=== PATIENT | female | born 1970 | race Hispanic/Latino ===

== ENCOUNTER 2017-11-08 23:23 | Emergency (ER) | payer BC ==
[2017-11-08] MEDS ORDERED: BUPIVACAINE 0.5% PF 10 ML VIAL ONE (23:45)
[2017-11-08] MEDS ORDERED: LIDOCAINE 1% MPF 2 ML AMPULE ONE (23:45)
[2017-11-08] MEDS ORDERED: TETANUS & DIPHTHERIA TOX,ADULT 0.5 ML VIAL ONE (23:46)
--- NOTE | 2017-11-09 01:05 | ER ---
Nurse's Notes [facility] Name: Shirley Tariq Age: 47 yrs Sex: Female : 1970 Arrival Date: 11/08/2017 Time: 23:23 Bed 20 Private MD: Goran Huang Diagnosis: Laceration without foreign body of right thumb without damage to nail;Crushing injury of unspecified finger(s)-Right Thumb with chip fracture distal phalanx Presentation: 11/08 23:30 Presenting complaint: Patient states: "I was trying to open my door and I pushed and ao got my thumb." Patient presented a a small laceration in the left thumb. Transition of care: patient was not received from another setting of care. Onset of symptoms was November 08, 2017 at 23:00. Risk Assessment: Do you want to hurt yourself or someone else? Patient reports no desire to harm self or others. Initial Sepsis Screen: Does the patient meet any 2 criteria? No. Patient's initial sepsis screen is negative. Does the patient have a suspected source of infection? No. Patient's initial sepsis screen is negative. Care prior to arrival: None. 23:30 Method Of Arrival: Ambulatory ao 23:30 Acuity: BRIAN 3 ao Triage Assessment: 23:39 Injury Description: Laceration sustained to left thumbnail is clean, 0.5 to 2.5 cm ao long, not bleeding, was sustained less than 30 minutes ago. a small amount of bleeding noted at this time. 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 - Social history:: Smoking status: Patient/guardian denies using tobacco, Patient uses alcohol, occasionally. Patient/guardian denies using street drugs. - Ebola Screening: : Patient negative for fever greater than or equal to 101.5 degrees Fahrenheit, and additional compatible Ebola Virus Disease symptoms Patient denies exposure to infectious person Patient denies travel to an Ebola-affected area in the 21 days before illness onset. Screenin:39 Abuse screen: Denies threats or abuse. Denies injuries from another. Nutritional ao screening: No deficits noted. Tuberculosis screening: No symptoms or risk factors identified. Fall Risk None identified. Assessment: 23:36 General: Appears in no apparent distress. comfortable, Behavior is calm, cooperative, ao appropriate for age. Pain: Denies pain. Complains of pain in palmar aspect of distal phalanx of left thumb Pain does not radiate. Pain currently is 3 out of 10 on a pain scale. Neuro: Level of Consciousness is awake, alert, obeys commands, Oriented to person, place, time, situation, Appropriate for age Moves all extremities. Speech is normal, Facial symmetry appears normal, Pupils are PERRLA. Cardiovascular: Capillary refill < 3 seconds Patient's skin is warm and dry. Respiratory: Airway is patent Respiratory effort is even, unlabored, Respiratory pattern is regular, symmetrical. GI: Abdomen is non-distended. : No signs and/or symptoms were reported regarding the genitourinary system. EENT: No signs and/or symptoms were reported regarding the EENT system. Derm: Wound noted palmar aspect of distal phalanx of left thumb Wound is Small laceration in the left thumb. Bleeding has been controlled. Musculoskeletal: Range of motion: intact in all extremities, Swelling present in left thumbnail Reports pain in left thumbnail. Vital Signs: 23:33 BP 176 / 93; Pulse 95; Resp 16; Temp 97.9(O); Pulse Ox 97% on R/A; Weight 79.38 kg (R); ao Height 5 ft. 3 in. (160.02 cm) (R); Pain 3/10; 23:33 Body Mass Index 31.00 (79.38 kg, 160.02 cm) ao ED Course: 23:23 Patient arrived in ED. ds1 23:23 Goran Huang MD is Private Physician. ds1 23:30 Carlos Nuno PA is PHCP. cp 23:30 Fran Johnston MD is Attending Physician. cp 23:33 Triage completed. ao 23:36 Arm band placed on right wrist. Patient placed in an exam room, on a stretcher, on ao oxygen, Patient notified of wait time. 23:40 Patient has correct armband on for positive identification. Pulse ox on. NIBP on. ao 11/09 00:10 X-ray completed. Portable x-ray completed in exam room. Patient tolerated procedure mh1 well. 00:10 XRAY Hand RIGHT 3 View Sent. ak1 00:11 XRAY Hand RIGHT 3 View In Process Unspecified. EDMS 01:03 Clarence Kamara MD is Referral Physician. cp 01:14 Assist provider with laceration repair on palmar aspect of distal phalanx of left thumb ak1 Set up tray. Performed by Carlos GATES Dressed with 4X4s, Ekta, Patient tolerated well. Patient did not have IV access during this emergency room visit. Administered Medications: 11/08 23:49 Drug: Tetanus-Diphtheria Toxoid Adult 0.5 ml {Telephoner: [employer]. Exp: ao 01/05/2020. Lot #: [id number]. } Route: IM; Site: left deltoid; 11/09 01:21 Follow up: Response: No adverse reaction ak1 00:09 Drug: Lidocaine (1 %) 5 ml {Note: at the bedside for ERP use.} Volume: 20 ml; Route: ak1 Infiltration; 00:09 Drug: Marcaine (0.5 %) 5 ml {Note: at the bedside for ERP use.} Volume: 10 ml; Route: ak1 Infiltration; 01:07 Drug: KeFLEX 500 mg Route: PO; ak1 01:20 Follow up: Response: No adverse reaction ak1 Outcome: 01:04 Discharge ordered by . cp 01:14 Discharged to home ambulatory. ak1 01:14 Condition: stable 01:14 Discharge instructions given to patient, Instructed on discharge instructions, follow up and referral plans. no drinking with medication, no driving heavy equipment, medication usage, Demonstrated understanding of instructions, follow-up care, medications, Prescriptions given X 3. 01:20 Patient left the ED. ak1 Signatures: Dispatcher [employer] EDWV TylerAlley 1 Shelly Arreola 1 Nano Rodney RN RN [email or web address] Carlos Nuno PA PA cp Ortiz, Alex, RN RN ao
--- NOTE | 2017-11-09 01:06 | EDPHYS ---
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 - Social history:: Smoking status: Patient/guardian denies using tobacco, Patient uses alcohol, occasionally. Patient/guardian denies using street drugs. - Ebola Screening: : Patient negative for fever greater than or equal to 101.5 degrees Fahrenheit, and additional compatible Ebola Virus Disease symptoms Patient denies exposure to infectious person Patient denies travel to an Ebola-affected area in the 21 days before illness onset. ROS: 23:45 Constitutional: Negative for body aches, chills, fever, poor PO intake. cp 23:45 Eyes: Negative for injury, pain, redness, and discharge. cp 23:45 Cardiovascular: Negative for chest pain. 23:45 Respiratory: Negative for cough, wheezing. 23:45 Abdomen/GI: Negative for abdominal pain. 23:45 MS/extremity: Positive for contusion, laceration, pain, swelling, tenderness, of the distal phalanx right thumb. 23:45 Neuro: Negative for numbness, tingling, weakness. 23:45 All other systems are negative. Exam: 23:55 Constitutional: The patient appears in no acute distress, alert, awake, well developed, cp well nourished. 23:55 Head/Face: Normocephalic, atraumatic. cp 23:55 Eyes: Periorbital structures: appear normal, Conjunctiva: normal, no exudate, no injection, Lids and lashes: appear normal, bilaterally. 23:55 ENT: External ear(s): are unremarkable, Nose: is normal, Mouth: is normal, Posterior pharynx: is normal, airway is patent. 23:55 Chest/axilla: Inspection: normal. 23:55 Cardiovascular: Rate: normal, Rhythm: regular. 23:55 Respiratory: the patient does not display signs of respiratory distress, Respirations: normal, no use of accessory muscles, no retractions, no splinting, no tachypnea. 23:55 Abdomen/GI: Exam negative for discomfort, distension, guarding, Inspection: abdomen appears normal. 23:55 Musculoskeletal/extremity: Extremities: grossly normal except: noted in the dorsal side distal phalanx right thumb: contusion, laceration, pain, swelling, tenderness, ROM: full active range of motion, in the right thumb, Perfusion: the extremity is normally perfused throughout, Sensation intact. Tendon exam: specific tendon testing normal through active and passive range of motion Vital Signs: 23:33 BP 176 / 93; Pulse 95; Resp 16; Temp 97.9(O); Pulse Ox 97% on R/A; Weight 79.38 kg (R); ao Height 5 ft. 3 in. (160.02 cm) (R); Pain 3/10; 23:33 Body Mass Index 31.00 (79.38 kg, 160.02 cm) ao Laceration: 11/09 01:00 Wound Repair of 1.5cm ( 0.6in ) subcutaneous laceration to dorsal side proximal to nail cp of right thumb. Linear shaped.. Distal neuro/vascular/tendon intact. Anesthesia: Digital block administered with 4 mls of Lido/Marcaine. Wound prep: Moderate cleansing by me, Wound irrigation by me. Skin closed with 2 5-0 Prolene using simple sutures and sterile technique. Dressed with Bacitracin, tube gauze, finger splint. Patient tolerated well. MDM: 11/08 23:34 Patient medically screened. cp 11/09 00:00 Differential diagnosis: contusion, laceration, open fracture. cp 01:02 Data reviewed: vital signs, nurses notes, radiologic studies, plain films. cp 01:02 Test interpretation: by ED physician or midlevel provider: plain radiologic studies. cp Counseling: I had a detailed discussion with the patient and/or guardian regarding: the historical points, exam findings, and any diagnostic results supporting the discharge/admit diagnosis, radiology results, the need for outpatient follow up, a hand specialist, to return to the emergency department if symptoms worsen or persist or if there are any questions or concerns that arise at home. Response to treatment: the patient's symptoms have markedly improved after treatment, and as a result, I will discharge patient. 11/08 23:39 Order name: XRAY Hand RIGHT 3 View cp 11/09 00:14 Order name: Wound Care: please clean and irrigate wound; Complete Time: 00:38 cp 11/09 00:53 Order name: Splint - Finger; Complete Time: 01:07 cp 11/09 00:53 Order name: Wound dressing; Complete Time: 01:07 cp Administered Medications: 11/08 23:49 Drug: Tetanus-Diphtheria Toxoid Adult 0.5 ml {Compound Mixer: [employer]. Exp: ao 01/05/2020. Lot #: [id number]. } Route: IM; Site: left deltoid; 11/09 01:21 Follow up: Response: No adverse reaction ak1 00:09 Drug: Lidocaine (1 %) 5 ml {Note: at the bedside for ERP use.} Volume: 20 ml; Route: ak1 Infiltration; 00:09 Drug: Marcaine (0.5 %) 5 ml {Note: at the bedside for ERP use.} Volume: 10 ml; Route: ak1 Infiltration; 01:07 Drug: KeFLEX 500 mg Route: PO; ak1 01:20 Follow up: Response: No adverse reaction ak1 Disposition: 03:45 Co-signature as Attending Physician, Fran Johnston MD. Disposition: 11/09/17 01:04 Discharged to Home. Impression: Laceration without foreign body of right thumb without damage to nail, Crushing injury of unspecified finger(s) - Right Thumb with chip fracture distal phalanx. - Condition is Stable. - Discharge Instructions: Crush Injury, Fingers or Toes, Laceration Care, Adult. - Prescriptions for Ibuprofen 800 mg Oral Tablet - take 1 tablet by ORAL route every 8 hours As needed take with food; 30 tablet. Keflex 500 mg Oral Capsule - take 1 capsule by ORAL route every 6 hours for 10 days; 40 capsule. Tylenol- Codeine #3 300-30 mg Oral Tablet - take 2 tablets by ORAL route every 6 hours As needed; 15 tablet. - Work release form, Medication Reconciliation Form, Thank You Letter, Antibiotic Education, Prescription Opioid Use form. - Follow up: Clarence Kamara MD; When: 1 week; Reason: Wound Recheck. - Problem is new. - Symptoms have improved. Signatures: Dispatcher [employer] EDNano Landers, RN RN ak1 Carlos Nuno PA PA cp Ortiz, Alex RN RN Fran Corbett MD MD gs Corrections: (The following items were deleted from the chart) 01:20 01:04 11/09/2017 01:04 Discharged to Home. Impression: Laceration without foreign body ak1 of right thumb without damage to nail; Crushing injury of unspecified finger(s) - Right Thumb with chip fracture distal phalanx. Condition is Stable. Forms are Medication Reconciliation Form, Thank You Letter, Antibiotic Education, Prescription Opioid Use. Follow up: Clarence Kamara; When: 1 week; Reason: Wound Recheck. Problem is new. Symptoms have improved. cp
[2017-11-09] MEDS ORDERED: CEPHALEXIN 250 MG CAP ONE (01:09)
--- NOTE | 2017-11-09 08:18 | RAD REPORT ---
EXAM DESCRIPTION: RAD - Hand Right 3 View - 11/09/2017 12:11 am CLINICAL HISTORY: Right hand pain status post injury FINDINGS: No fracture or dislocation is seen.
== END 2017-11-09 01:20 | disposition home or self-care (01) ==
LOC: ER 23:23
PROC: 0HQFXZZ Repair Right Hand Skin, External Approach (ICD-10-PCS; principal; 2017-11-09)
DX: S62.521B Displaced fracture of distal phalanx of right thumb, initial encounter for open fracture (principal); I10 Essential (primary) hypertension; E78.5 Hyperlipidemia, unspecified; X58.XXXA Exposure to other specified factors, initial encounter; Y93.9 Activity, unspecified; Y92.9 Unspecified place or not applicable; Y99.9 Unspecified external cause status; Z23 Encounter for immunization
CPT/HCPCS: 90714; 99284; J2001

== ENCOUNTER 2018-05-18 03:11 | Emergency (ER) | payer BC ==
--- OUTSIDE RECORDS SUMMARY | 2018-05-18 03:13 | XMS REPORT ---
:1970 [facility] Address [address] [place] [address] Dr. Horton [address] [place] [id number] Care Team Providers Name Role Phone Unavailable Unavailable Unavailable Problems This patient has no known problems. Allergies, Adverse Reactions, Alerts This patient has no known allergies or adverse reactions. Medications This patient has no known medications.
[2018-05-18] MEDS ORDERED: IBUPROFEN 200 MG TAB PO ONE (03:57)
[2018-05-18] MEDS ORDERED: IBUPROFEN 400 MG TAB ONE (03:57)
[2018-05-18] MEDS ORDERED: ACETAMINOPHEN 500 MG TAB ONE (03:57)
[2018-05-18] MEDS ORDERED: LIDOCAINE 1% MPF 5 ML VIAL ONE (05:11)
[2018-05-18] MEDS ORDERED: ONDANSETRON 4 MG (ODT) TAB ONE (05:21)
--- NOTE | 2018-05-18 05:46 | EDPHYS ---
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 - Social history:: Smoking status: Patient/guardian denies using tobacco, Patient uses alcohol, occasionally. - Ebola Screening: : Patient negative for fever greater than or equal to 101.5 degrees Fahrenheit, and additional compatible Ebola Virus Disease symptoms Patient denies exposure to infectious person Patient denies travel to an Ebola-affected area in the 21 days before illness onset. Vital Signs: 03:15 BP 180 / 125; Pulse 90; Resp 18; Temp 97.6(O); Pulse Ox 100% on R/A; Weight 82.1 kg fc (R); Height 5 ft. 3 in. (160.02 cm); Pain 10/10; 03:41 BP 151 / 96; Pulse 78; Resp 17 S; Pulse Ox 100% on R/A; jd3 04:20 BP 163 / 98; Pulse 71; Resp 16 S; Pulse Ox 100% on R/A; jd3 05:17 BP 167 / 93; Pulse 77; Resp 17 S; Pulse Ox 99% on R/A; jd3 03:15 Body Mass Index 32.06 (82.10 kg, 160.02 cm) fc MDM: 03:21 Patient medically screened. wv 05/18 03:37 Order name: Hand Left 3 View XRAY wv Administered Medications: 03:55 Drug: Tylenol 1000 mg Route: PO; jd3 05:55 Follow up: Response: No adverse reaction jd3 04:04 Not Given (Physician Discretion): Motrin 600 mg PO once jd3 05:35 Drug: Lidocaine (1 %) 5 ml Volume: 5 ml; Route: Infiltration; jd3 05:57 Follow up: Response: No adverse reaction jd3 Disposition: 05/18/18 05:46 Discharged to Home. Impression: left Thumb Laceration involving the nail bed. - Condition is Stable. - Discharge Instructions: Laceration Care, Adult, [id number]. - Prescriptions for Keflex 500 mg Oral Capsule - take 1 capsule by ORAL route every 12 hours for 5 days; 10 capsule. - Medication Reconciliation Form, Thank You Letter, Antibiotic Education, Prescription Opioid Use, Work release form form. - Follow up: Clarence Kamara MD; When: 2 - 3 days; Reason: Recheck today's complaints. - Problem is new. - Symptoms have improved. Addendum: 05/19/2018 09:14 Addendum: cc: cut left thumb with knife. 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 w a c/o bleeding. held on a piece of tissue paper. admits to moderate pain. PMHx: HTN. hyperlipidemia. SHx: denies tobacco. occasional ETOH. Allg: NKDA. ROS: positive for L thumb lac. all other ROS negative. Exam: const: NAD. HEENT: NCAT. CVS: NS1, S2. Resp: lungs clear. Abd: soft, non-tender. Musc: 1 cm lac distal L thumb through nailbed. noted mild venous bleed. Neuro: normal. DDx: will check x-ray r/o fx or FB. will repair. Tetanus UTD. Results: L thumb x-ray: no fx or dislocation. procedure: digital block with 1% lidocaine w/o epi. lac repaired with 4-0 vicryl sutures. 2 stitches placed. dressed with gauze. pt tolerated well. prophylactic keflex abx written. close f/u. Signatures: Dispatcher [employer] EDAK Kristin Maldonado RN RN Adeel Wolf MD MD wa Davies, Jonathon, RN RN jd3 Corrections: (The following items were deleted from the chart) 05/18 05:57 05:46 05/18/2018 05:46 Discharged to Home. Impression: left Thumb Laceration involving jd3 the nail bed. Condition is Stable. Forms are Work release form, Medication Reconciliation Form, Thank You Letter, Antibiotic Education, Prescription Opioid Use. Follow up: Clarence Kamara; When: 2 - 3 days; Reason: Recheck today's complaints. Problem is new. Symptoms have improved. jose
--- NOTE | 2018-05-18 05:46 | ER ---
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 Bleeding is controlled at this time. Transition of care: patient was not received from another setting of care. Onset of symptoms was May 18, 2018 at 03:00. Risk Assessment: Do you want to hurt yourself or someone else? Patient reports no desire to harm self or others. Initial Sepsis Screen: Does the patient meet any 2 criteria? No. Patient's initial sepsis screen is negative. Does the patient have a suspected source of infection? No. Patient's initial sepsis screen is negative. Care prior to arrival: Bleeding of injury controlled. 03:15 Method Of Arrival: Ambulatory fc 03:15 Acuity: BRIAN 3 fc Triage Assessment: 03:15 General: Appears uncomfortable, well groomed, Behavior is calm, cooperative, fc appropriate for age. Pain: Complains of pain in left thumb Pain currently is 10 out of 10 on a pain scale. Quality of pain is described as aching, throbbing, Pain began 30 min ago. Is continuous, Aggravated by increased activity, repositioning. EENT: No deficits noted. Neuro: Level of Consciousness is awake, alert, obeys commands, Oriented to person, place, time, situation, Appropriate for age. Cardiovascular: No deficits noted. Respiratory: Reports. GI: No deficits noted. : No deficits noted. Derm: Skin is pink, warm \T\ dry. Musculoskeletal: Capillary refill Range of motion: limited in IP of left thumb. Injury Description: Laceration sustained to left thumbnail is clean, 0.5 to 2.5 cm long, bleeding moderately, was sustained less than 30 minutes ago. moderate bleeding noted at this time. A dressing was applied. 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 - Social history:: Smoking status: Patient/guardian denies using tobacco, Patient uses alcohol, occasionally. - Ebola Screening: : Patient negative for fever greater than or equal to 101.5 degrees Fahrenheit, and additional compatible Ebola Virus Disease symptoms Patient denies exposure to infectious person Patient denies travel to an Ebola-affected area in the 21 days before illness onset. Screenin:25 Abuse screen: Denies threats or abuse. Nutritional screening: No deficits noted. Tuberculosis screening: No symptoms or risk factors identified. Fall Risk None identified. Assessment: 03:25 Reassessment: No changes from previously documented assessment. Patient and/or family fc updated on plan of care and expected duration. Pain level reassessed. Patient is alert, oriented x 3, equal unlabored respirations, skin warm/dry/pink. see triage assessment. 03:42 Reassessment: left thumb wrapped, no bleeding noted at this time. jd3 04:20 Reassessment: Patient appears in no apparent distress at this time. No changes from d3 previously documented assessment. Patient and/or family updated on plan of care and expected duration. Pain level reassessed. Patient is alert, oriented x 3, equal unlabored respirations, skin warm/dry/pink. 05:17 Reassessment: Patient appears in no apparent distress at this time. Patient and/or [facility] family updated on plan of care and expected duration. Pain level reassessed. Patient is alert, oriented x 3, equal unlabored respirations, skin warm/dry/pink. provider at bedside suturing. Vital Signs: 03:15 BP 180 / 125; Pulse 90; Resp 18; Temp 97.6(O); Pulse Ox 100% on R/A; Weight 82.1 kg (R); Height 5 ft. 3 in. (160.02 cm); Pain 10/10; 03:41 BP 151 / 96; Pulse 78; Resp 17 S; Pulse Ox 100% on R/A; jd3 04:20 BP 163 / 98; Pulse 71; Resp 16 S; Pulse Ox 100% on R/A; jd3 05:17 BP 167 / 93; Pulse 77; Resp 17 S; Pulse Ox 99% on R/A; jd3 03:15 Body Mass Index 32.06 (82.10 kg, 160.02 cm) ED Course: 03:12 Patient arrived in ED. ds1 03:15 Arm band placed on Patient placed in an exam room, on a stretcher. 03:21 Adeel Wolf MD is Attending Physician. wa 03:22 Triage completed. 03:25 Patient has correct armband on for positive identification. Bed in low position. Call fc light in reach. 03:35 Scout Houser RN is Primary Nurse. jd3 03:35 Dressings: Kerlix X 1; left thumb. jd3 03:52 X-ray completed. Portable x-ray completed in exam room. Patient tolerated procedure kw well. 03:52 Hand Left 3 View XRAY In Process Unspecified. EDMS 05:34 Assist provider with laceration repair on left thumb that was 2.5 cm. or less using jd3 sutures. Set up tray. Performed by Adeel Wolf MD Dressed with Kerlix, Patient tolerated well. 05:45 Clarence Kamara MD is Referral Physician. wy 05:55 Patient did not have IV access during this emergency room visit. jd3 Administered Medications: 03:55 Drug: Tylenol 1000 mg Route: PO; jd3 05:55 Follow up: Response: No adverse reaction jd3 04:04 Not Given (Physician Discretion): Motrin 600 mg PO once jd3 05:35 Drug: Lidocaine (1 %) 5 ml Volume: 5 ml; Route: Infiltration; jd3 05:57 Follow up: Response: No adverse reaction jd3 Outcome: 05:46 Discharge ordered by . wy 05:54 Discharged to home ambulatory. jd3 05:54 Condition: stable 05:54 Discharge instructions given to patient, Instructed on discharge instructions, follow up and referral plans. medication usage, Demonstrated understanding of instructions, follow-up care, medications, Prescriptions given X 1. 05:57 Patient left the ED. jd3 Signatures: Dispatcher [employer] EDMS Kristin Maldonado RN RN Shelly Arreola ds1 Emely Cantor kw Adeel Wolf MD MD wa Davies, Jonathon, RN RN jd3 Corrections: (The following items were deleted from the chart) 03:43 03:42 Reassessment: jd3 jd3 05:20 05:17 BP 111 / 67; Pulse 63bpm; Resp 17bpm; Spontaneous; Pulse Ox 99% RA; jd3 jd3 05:25 05:17 Reassessment: Patient appears in no apparent distress at this time. Patient jd3 and/or family updated on plan of care and expected duration. Pain level reassessed. Patient is alert, oriented x 3, equal unlabored respirations, skin warm/dry/pink. jd3
--- NOTE | 2018-05-18 08:18 | RAD REPORT ---
EXAM DESCRIPTION: RAD -Hand Left 3 View - 05/18/2018 3:52 am CLINICAL HISTORY: Left hand pain status post injury FINDINGS: No fracture or dislocation is seen. A radiopaque foreign body is not seen
== END 2018-05-18 05:57 | disposition home or self-care (01) ==
LOC: ER 03:11
PROC: 0JQK0ZZ Repair Left Hand Subcutaneous Tissue and Fascia, Open Approach (ICD-10-PCS; principal; 2018-05-18)
DX: S61.112A Laceration without foreign body of left thumb with damage to nail, initial encounter (principal); W26.0XXA Contact with knife, initial encounter; I10 Essential (primary) hypertension; E78.5 Hyperlipidemia, unspecified
CPT/HCPCS: 99284

== ENCOUNTER 2018-12-25 10:41 | Emergency (ER) | payer BC ==
--- OUTSIDE RECORDS SUMMARY | 2018-12-25 10:44 | XMS REPORT ---
:1970 [facility] Address [address] [place] [address] Dr. Horton [address] [place] [id number] Care Team Providers Name Role Phone Unavailable Unavailable Unavailable Problems This patient has no known problems. Allergies, Adverse Reactions, Alerts This patient has no known allergies or adverse reactions. Medications This patient has no known medications.
[2018-12-25] MEDS ORDERED: MEPERIDINE HCL 25 MG/0.5 ML ONE (11:11)
[2018-12-25] MEDS ORDERED: ONDANSETRON 4 MG/2 ML VIAL ONE (11:12)
[2018-12-25 11:17] LABS: Absolute Lymphocytes (CBC) 1.7 K/uL (0.7-4.9); Basophils % 0.8 % (0-1.3); Hematocrit 39.3 % (36.0-45.0); Lymphocytes % 45.5 % (15.3-44.8); MPV 8.8 fL (7.6-11.3); RBC Red Blood Cell Count 4.54 M/uL (3.86-4.86)
[2018-12-25 11:36] LABS: Bilirubin Direct 0.1 mg/dL (0-0.2); Bilirubin Total 0.5 mg/dL (0.2-1.0); Potassium 3.7 mmol/L (3.5-5.1); Protein, Total 7.9 g/dL (6.4-8.2)
[2018-12-25] MEDS ORDERED: NA CHLORIDE 0.9% 1,000 ML ONE (12:18)
--- NOTE | 2018-12-25 12:21 | RAD REPORT ---
EXAM DESCRIPTION: CT - Abdomen Pelvis W Contrast - 12/25/2018 12:01 pm CLINICAL HISTORY: ABD PAIN COMPARISON: None. TECHNIQUE: Biphasic, helical CT imaging of the abdomen and pelvis was performed following 100 ml non -ionic IV contrast. No oral contrast was given. All CT scans are performed using dose optimization technique as appropriate and may include automated exposure control or mA/KV adjustment according to patient size. FINDINGS: No suspicious findings in the lung bases. Liver shows fatty infiltration pattern with no focal liver lesion identified. Slight decrease in atte nuation in the periportal region of the right lobe not regarded as significant. Spleen and pancreas s how no suspicious findings. Gallbladder and biliary tree are also without suspicious finding. Symmetric renal function is seen with no hydronephrosis or suspicious renal mass. No pyelonephritis o r acute parenchymal process. No bladder abnormalities. No adrenal abnormalities. No gastric dilatation or gastric wall thickening. No dilated small bowel loops. The appendix is siddhartha l. From tip of the cecum through the descending colon there is no acute process seen. Sigmoid colon i s tortuous and redundant. In the right side pelvis there is edematous/inflammatory stranding in the f at adjacent to the sigmoid colon. Stranding surrounds a focal fat lobule. The huang of the colon in t his region are not thickened or edematous. Pattern is consistent with acute epiploic appendagitis at the sigmoid colon level. Colon infectious/inflammatory etiology is less likely. No free air or pneumatosis. Trace amount of free fluid is seen in the pelvis. No other site of infl ammatory stranding. No bulky lymphadenopathy or mass. Fat extends into each inguinal canal. Small fa t only umbilical hernia present. No uterine or ovarian suspicious finding. Patient has a 3 centimeter exophytic fundal fibroid inciden ana to the current presentation. Disc and bony degenerative changes are present. Patient has L5 pars interarticularis defects with a g rade 1 spondylolisthesis. L5-S1 disc is significantly thinned with gas in the disc space. Significant disc space narrowing at L4-5. IMPRESSION: Acute epiploic appendagitis adjacent to the sigmoid colon. No acute findings of the sig nal colon wall. No appendicitis or other acute GI process. Additional nonacute findings detailed in the body of the report.
--- NOTE | 2018-12-25 13:05 | EDPHYS ---
Physician Documentation [facility] Name: Shirley Tariq Age: 48 yrs Sex: Female : 1970 Arrival Date: 12/25/2018 Time: 10:46 Bed 15 Private MD: Goran Huang ED Physician Artie Mares HPI: 12/25 10:56 This 48 yrs old Female presents to ER via Unassigned with complaints of rn Abdominal Pain. 10:56 The patient presents with abdominal pain in the lower abdomen. Onset: The rn symptoms/episode began/occurred 3 day(s) ago. The symptoms do not radiate. Associated signs and symptoms: Pertinent positives: diarrhea, Pertinent negatives: blood in stools, fever, shortness of breath, vomiting, vomiting blood. The symptoms are described as achy, crampy. Modifying factors: The symptoms are alleviated by nothing, the symptoms are aggravated by movement, touching the area. Severity of pain: At its worst the pain was moderate in the emergency department the pain is unchanged. The patient has not experienced similar symptoms in the past. The patient has not recently seen a physician. 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 - Social history:: Smoking status: Patient/guardian denies using tobacco. - Family history:: not pertinent. - Ebola Screening: : Patient negative for fever greater than or equal to 101.5 degrees Fahrenheit, and additional compatible Ebola Virus Disease symptoms. - Hospitalizations: : No recent hospitalization is reported. ROS: 10:56 Constitutional: Negative for fever, chills, and weight loss, Cardiovascular: Negative rn for chest pain, palpitations, and edema, Respiratory: Negative for shortness of breath, cough, wheezing, and pleuritic chest pain, Abdomen/GI: + lower abd pain and diarrhea Back: Negative for injury and pain, : Negative for injury, bleeding, discharge, and swelling, MS/Extremity: Negative for injury and deformity, Skin: Negative for injury, rash, and discoloration, Neuro: Negative for headache, weakness, numbness, tingling, and seizure. Exam: 10:56 Constitutional: This is a well developed, well nourished patient who is awake, alert, rn and in no acute distress. Head/Face: Normocephalic, atraumatic. Eyes: Pupils equal round and reactive to light, extra-ocular motions intact. Lids and lashes normal. Conjunctiva and sclera are non-icteric and not injected. Cornea within normal limits. Periorbital areas with no swelling, redness, or edema. ENT: MMM Respiratory: No increased work of breathing, no retractions or nasal flaring. Abdomen/GI: soft, + lower abd tenderness in RLQ/LLQ/suprapubic regions. MS/ Extremity: Pulses equal, no cyanosis. Neurovascular intact. Full, normal range of motion. Equal circumference. Neuro: Awake and alert, GCS 15, oriented to person, place, time, and situation. Cranial nerves II-XII grossly intact. Motor strength 5/5 in all extremities. Sensory grossly intact. Cerebellar exam normal. Vital Signs: 10:48 BP 152 / 95; Pulse 83; Resp 17; Temp 98.4(O); Pulse Ox 100% on R/A; Weight 82.55 kg rb1 (R); Height 5 ft. 3 in. (160.02 cm) (R); Pain 7/10; 11:45 BP 131 / 67; Pulse 69; Resp 16; Temp 98.1(O); Pulse Ox 97% on R/A; Pain 6/10; rb1 12:45 BP 106 / 46; Pulse 70; Resp 17; Pulse Ox 97% on R/A; Pain 8/10; rb1 13:20 BP 119 / 58; Pulse 75; Resp 17; Temp 98.0(O); Pulse Ox 98% on R/A; Pain 7/10; rb1 10:48 Body Mass Index 32.24 (82.55 kg, 160.02 cm) rb1 MDM: 10:48 Patient medically screened. rn 13:02 Differential diagnosis: diverticulitis, non-specific abd pain, pancreatitis, rn Ureterolithiasis, urinary tract infection. Data reviewed: vital signs, nurses notes, lab test result(s), radiologic studies, CT scan, and as a result, I will discharge patient. Counseling: I had a detailed discussion with the patient and/or guardian regarding: the historical points, exam findings, and any diagnostic results supporting the discharge/admit diagnosis, lab results, radiology results, the need for outpatient follow up, to return to the emergency department if symptoms worsen or persist or if there are any questions or concerns that arise at home. Response to treatment: the patient's symptoms have markedly improved after treatment, and as a result, I will discharge patient. Special discussion: I discussed with the patient/guardian in detail that at this point there is no indication for admission to the hospital. It is understood, however, that if the symptoms persist or worsen the patient needs to return immediately for re-evaluation. ED course: Results of CT and labs given to patient, recommended better diet for fatty liver, and epiploic appendagitis finding on CT explained.. 12/25 10:56 Order name: Basic Metabolic Panel; Complete Time: 11:50 rn 12/25 10:56 Order name: CBC with Diff; Complete Time: 11:50 rn 12/25 10:56 Order name: Creatinine for Radiology; Complete Time: 11:50 rn 12/25 10:56 Order name: Hepatic Function; Complete Time: 11:50 rn 12/25 10:56 Order name: Lipase; Complete Time: 11:50 rn 12/25 10:56 Order name: Urine Microscopic Only; Complete Time: 13:55 rn 12/25 10:56 Order name: IV Saline Lock; Complete Time: 11:12 rn 12/25 10:56 Order name: Labs collected and sent; Complete Time: 11:12 rn 12/25 10:56 Order name: CT Abd/Pelvis - IV Contrast Only; Complete Time: 12:46 rn 12/25 12:43 Order name: Urine Dipstick--Ancillary (enter results); Complete Time: 13:55 bd 12/25 12:43 Order name: Urine --Ancillary (enter results); Complete Time: 13:55 bd 12/25 10:56 Order name: Urine Dipstick-Ancillary (obtain specimen); Complete Time: 12:44 rn 12/25 10:56 Order name: Urine Test (obtain specimen); Complete Time: 12:44 rn Administered Medications: 11:16 Drug: Demerol 25 mg Route: IVP; Site: right antecubital; rb1 11:30 Follow up: Response: No adverse reaction; Pain is decreased rb1 11:16 Drug: Zofran 4 mg Route: IVP; Site: right antecubital; rb1 11:30 Follow up: Response: No adverse reaction; Nausea is decreased rb1 12:35 Drug: NS 0.9% 1000 ml Route: IV; Rate: 1000 ml; Site: right antecubital; rb1 13:54 Follow up: IV Status: Completed infusion rb1 Disposition: 12/25/18 13:03 Discharged to Home. Impression: Epiploic Appendagitis. - Condition is Stable. - Prescriptions for Tylenol- Codeine #3 300-30 mg Oral Tablet - take 1 tablet by ORAL route every 6 hours As needed; 20 tablet. Bactrim DS 800- 160 mg Oral Tablet - take 1 tablet by ORAL route every 12 hours for 10 days; 20 tablet. - Medication Reconciliation Form, Thank You Letter, Antibiotic Education, Prescription Opioid Use, Work release form form. - Follow up: Private Physician; When: As needed; Reason: Recheck today's complaints, Re-evaluation by your physician. - Problem is new. - Symptoms have improved. Signatures: Dispatcher [employer] EDMS Artie Mares MD MD rn Barber, Rebecca, RN RN rb1 Corrections: (The following items were deleted from the chart) 13:59 13:03 12/25/2018 13:03 Discharged to Home. Impression: Epiploic Appendagitis. Condition rb1 is Stable. Forms are Medication Reconciliation Form, Thank You Letter, Antibiotic Education, Prescription Opioid Use. Follow up: Private Physician; When: As needed; Reason: Recheck today's complaints, Re-evaluation by your physician. Problem is new. Symptoms have improved. rn
--- NOTE | 2018-12-25 13:05 | ER ---
Nurse's Notes [facility] Name: Shirley Traiq Age: 48 yrs Sex: Female : 1970 Arrival Date: 12/25/2018 Time: 10:46 Bed 15 Private MD: Goran Huang Diagnosis: Epiploic Appendagitis Presentation: 12/25 10:48 Presenting complaint: Patient states: Abdominal pain that comes and goes. Started on rb1 Monday. Transition of care: patient was not received from another setting of care. Onset of symptoms was December 23, 2018. Risk Assessment: Do you want to hurt yourself or someone else? Patient reports no desire to harm self or others. Initial Sepsis Screen: Does the patient meet any 2 criteria? No. Patient's initial sepsis screen is negative. Does the patient have a suspected source of infection? No. Patient's initial sepsis screen is negative. Care prior to arrival: None. 10:48 Method Of Arrival: Ambulatory rb1 10:48 Acuity: BRIAN 3 rb1 Triage Assessment: 10:48 General: Appears uncomfortable, Behavior is calm, cooperative, Denies fever. Pain: rb1 Complains of pain in suprapubic area and right lower quadrant Pain currently is 7 out of 10 on a pain scale. Neuro: Level of Consciousness is awake, alert, obeys commands, Oriented to person, place, time, situation. Cardiovascular: Capillary refill < 3 seconds is brisk in bilateral fingers. Respiratory: Airway is patent Respiratory effort is even, unlabored, Respiratory pattern is regular, symmetrical. GI: Reports loose stools. : No signs and/or symptoms were reported regarding the genitourinary system. Derm: Skin is pink, warm \T\ dry. 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 - Social history:: Smoking status: Patient/guardian denies using tobacco. - Family history:: not pertinent. - Ebola Screening: : Patient negative for fever greater than or equal to 101.5 degrees Fahrenheit, and additional compatible Ebola Virus Disease symptoms. - Hospitalizations: : No recent hospitalization is reported. Screenin:48 Abuse screen: Denies threats or abuse. Nutritional screening: No deficits noted. rb1 Tuberculosis screening: No symptoms or risk factors identified. Fall Risk None identified. Assessment: 10:48 General: See triage assessment. rb1 10:48 GI: Bowel sounds present X 4 quads. Abd is soft Abdomen is tender to palpation in rb1 suprapubic area and right lower quadrant. 11:45 Reassessment: Patient appears in no apparent distress at this time. No changes from rb1 previously documented assessment. 12:38 Reassessment: Patient appears in no apparent distress at this time. Patient and/or rb1 family updated on plan of care and expected duration. Pain level reassessed. Patient is alert, oriented x 3, equal unlabored respirations, skin warm/dry/pink. 12:57 Reassessment: Dr. Mares is at pt. bedside. rb1 13:17 Reassessment: discharge pending due to IV fluids infusing. rb1 13:50 Reassessment: Patient appears in no apparent distress at this time. Patient and/or rb1 family updated on plan of care and expected duration. Pain level reassessed. Patient is alert, oriented x 3, equal unlabored respirations, skin warm/dry/pink. Vital Signs: 10:48 BP 152 / 95; Pulse 83; Resp 17; Temp 98.4(O); Pulse Ox 100% on R/A; Weight 82.55 kg rb1 (R); Height 5 ft. 3 in. (160.02 cm) (R); Pain 7/10; 11:45 BP 131 / 67; Pulse 69; Resp 16; Temp 98.1(O); Pulse Ox 97% on R/A; Pain 6/10; rb1 12:45 BP 106 / 46; Pulse 70; Resp 17; Pulse Ox 97% on R/A; Pain 8/10; rb1 13:20 BP 119 / 58; Pulse 75; Resp 17; Temp 98.0(O); Pulse Ox 98% on R/A; Pain 7/10; rb1 10:48 Body Mass Index 32.24 (82.55 kg, 160.02 cm) [facility] ED Course: 10:46 Patient arrived in ED. as 10:46 Goran Huang MD is Private Physician. as 10:47 Marsha Hubbard, RN is Primary Nurse. rb1 10:48 Artie Mares MD is Attending Physician. rn 10:48 Arm band placed on right wrist. rb1 10:48 Patient has correct armband on for positive identification. Bed in low position. Call rb1 light in reach. Side rails up X 1. Pulse ox on. NIBP on. Warm blanket given. 11:08 Triage completed. rb1 11:10 Inserted saline lock: 22 gauge in right antecubital area, using aseptic technique. tw2 Blood collected. 12:03 CT Abd/Pelvis - IV Contrast Only In Process Unspecified. [facility] 12:50 Urine --Ancillary (enter results) Sent. [facility] 12:50 Urine Dipstick--Ancillary (enter results) Sent. [facility] 12:50 Urine Microscopic Only Sent. [facility] 13:59 No provider procedures requiring assistance completed. IV discontinued, intact, rb1 bleeding controlled, No redness/swelling at site. Pressure dressing applied. Administered Medications: 11:16 Drug: Demerol 25 mg Route: IVP; Site: right antecubital; rb1 11:30 Follow up: Response: No adverse reaction; Pain is decreased rb1 11:16 Drug: Zofran 4 mg Route: IVP; Site: right antecubital; rb1 11:30 Follow up: Response: No adverse reaction; Nausea is decreased rb1 12:35 Drug: NS 0.9% 1000 ml Route: IV; Rate: 1000 ml; Site: right antecubital; rb1 13:54 Follow up: IV Status: Completed infusion rb1 Outcome: 13:03 Discharge ordered by . rn 13:59 Patient left the ED. rb1 13:59 Discharged to home ambulatory, with family. rb1 13:59 Condition: stable 13:59 Discharge instructions given to patient, Instructed on discharge instructions, follow up and referral plans. medication usage, Demonstrated understanding of instructions, follow-up care, medications, Prescriptions given X 2. Signatures: Dispatcher [employer] Eri Laughlin as Artie Mares MD MD rn Barber, Rebecca, RN RN rb1 Cara Lovett RN RN 2 Jaleesa Mccord [facility]
[2018-12-25 13:33] LABS: Urine Blood TRACE (NEG); Urine Glucose NEGATIVE (NEG); Urine Protein NEGATIVE (NEG)
[2018-12-25 13:38] LABS: Urine Bacteria <20 /HPF (<20); Urine Culture Reflex Order NOT NEEDED
== END 2018-12-25 13:59 | disposition home or self-care (01) ==
LOC: ER 10:41
DX: K63.89 Other specified diseases of intestine (principal); I10 Essential (primary) hypertension; E78.5 Hyperlipidemia, unspecified
CPT/HCPCS: 85025; 80048; 36415; 81025; 80076; 83690; 74177; Q9967; J2175; J7030; J2405; 81003; 81015; 96361; 96374; 96375; 99284

== ENCOUNTER 2019-07-08 09:54 | Emergency (ER) | payer BC ==
--- OUTSIDE RECORDS SUMMARY | 2019-07-08 10:03 | XMS REPORT ---
:1970 [facility] Address [address] [place] [address] Dr. Horton [address] [place] [id number] Care Team Providers Name Role Phone Unavailable Unavailable Unavailable Problems This patient has no known problems. Allergies, Adverse Reactions, Alerts This patient has no known allergies or adverse reactions. Medications This patient has no known medications.
[2019-07-08 11:06] LABS: Urine Blood 1+ (NEG); Urine Glucose NEGATIVE (NEG); Urine Protein TRACE (NEG); Urine Specific Gravity 1.025 (1.005-1.030)
[2019-07-08] MEDS ORDERED: FENTANYL CITR 100 MCG/2 ML ONE (11:12)
[2019-07-08] MEDS ORDERED: PROMETHAZINE INJ 25 MG/ML AMP ONE (11:12)
[2019-07-08 11:44] LABS: Absolute Lymphocytes (CBC) 1.8 K/uL (0.7-4.9); Basophils % 1.2 % (0-1.3); Hematocrit 39.1 % (36.0-45.0); Lymphocytes % 52.9 % (15.3-44.8); MPV 8.6 fL (7.6-11.3); RBC Red Blood Cell Count 4.39 M/uL (3.86-4.86)
[2019-07-08 11:52] LABS: Albumin 4.2 g/dL (3.4-5.0); Bilirubin Direct 0.1 mg/dL (0-0.2); Bilirubin Total 0.7 mg/dL (0.2-1.0); Potassium 3.8 mmol/L (3.5-5.1)
--- NOTE | 2019-07-08 13:38 | RAD REPORT ---
EXAM DESCRIPTION: CTAbdomen Pelvis W Contrast - 07/08/2019 1:24 pm CLINICAL HISTORY: Abdominal pain. ABD PAIN COMPARISON: Abdomen Pelvis W Contrast dated 12/25/2018 TECHNIQUE: Biphasic CT imaging of the abdomen and pelvis was performed with 100 ml non-ionic IV cont rast. All CT scans are performed using dose optimization technique as appropriate and may include automated exposure control or mA/KV adjustment according to patient size. FINDINGS: The lung bases are clear. The liver demonstrates diffuse fatty infiltration. The spleen, pancreas, adrenal glands and left kidn ey are within normal limits. Small fatty lesion inferolateral right renal cortex measuring 6 mm proba desiree a small angiomyolipoma. No bowel obstruction, free air, free fluid or abscess. The appendix is normal. No evidence of signi ficant lymphadenopathy. Vacuum disc degeneration is present at L4-5 and L5-S1 with mild anterolisthesis at L5-S1. Small bilat eral fat containing inguinal hernias. IMPRESSION: No acute intra-abdominal or pelvic finding. Prominent fatty liver.
--- NOTE | 2019-07-08 13:45 | EDPHYS ---
Physician Documentation [facility] Name: Shirley Tariq Age: 49 yrs Sex: Female : 1970 Arrival Date: 07/08/2019 Time: 09:57 Bed 16 Private MD: Goran Huang ED Physician Carlos Andrade HPI: 07/07 11:03 This 49 yrs old Female presents to ER via Ambulatory with complaints of snw Abdominal Pain. 11:03 The patient presents with abdominal pain in the lower abdomen, right lower quadrant. snw Onset: The symptoms/episode began/occurred gradually, 2 day(s) ago, and became worse and became persistent. Associated signs and symptoms: Pertinent positives: nausea. The symptoms are described as stabbing. Severity of pain: At its worst the pain was moderate. The patient has experienced a previous episode, last year. The patient has not recently seen a physician, the patient's primary care provider is Dr. Dr. Huang. Historical: - Allergies: 10:27 No Known Allergies; ss - Home Meds: 11:53 metformin 500 mg Oral tr24 [Active]; hydrochlorothiazide 25 mg Oral tab 1 tab once em daily [Active]; losartan 50 mg oral tab 1 tab once daily [Active]; rosuvastatin 10 mg oral tab 1 tab once daily [Active]; - PMHx: 10:27 Hyperlipidemia; Hypertension; ss - PSHx: 10:27 Tubal ligation; Ablation; ss - Immunization history:: Adult Immunizations up to date. - Social history:: Smoking status: Patient denies any tobacco usage or history of. ROS: 11:02 Constitutional: Negative for fever, chills, and weight loss, Eyes: Negative for injury, snw pain, redness, and discharge, ENT: Negative for injury, pain, and discharge, Neck: Negative for injury, pain, and swelling, Cardiovascular: Negative for chest pain, palpitations, and edema, Respiratory: Negative for shortness of breath, cough, wheezing, and pleuritic chest pain, Back: Negative for injury and pain, : Negative for injury, bleeding, discharge, and swelling, MS/Extremity: Negative for injury and deformity, Skin: Negative for injury, rash, and discoloration, Neuro: Negative for headache, weakness, numbness, tingling, and seizure, Psych: Negative for depression, anxiety, suicide ideation, homicidal ideation, and hallucinations. 11:02 Abdomen/GI: Positive for abdominal pain, nausea, of the right lower quadrant. Exam: 11:01 Constitutional: This is a well developed, well nourished patient who is awake, alert, snw and in no acute distress. Head/Face: Normocephalic, atraumatic. Eyes: Pupils equal round and reactive to light, extra-ocular motions intact. Lids and lashes normal. Conjunctiva and sclera are non-icteric and not injected. Cornea within normal limits. Periorbital areas with no swelling, redness, or edema. ENT: Nares patent. No nasal discharge, no septal abnormalities noted. Tympanic membranes are normal and external auditory canals are clear. Oropharynx with no redness, swelling, or masses, exudates, or evidence of obstruction, uvula midline. Mucous membranes moist. Neck: Trachea midline, no thyromegaly or masses palpated, and no cervical lymphadenopathy. Supple, full range of motion without nuchal rigidity, or vertebral point tenderness. No Meningismus. Chest/axilla: Normal chest wall appearance and motion. Nontender with no deformity. No lesions are appreciated. Cardiovascular: Regular rate and rhythm with a normal S1 and S2. No gallops, murmurs, or rubs. Normal PMI, no JVD. No pulse deficits. Respiratory: Lungs have equal breath sounds bilaterally, clear to auscultation and percussion. No rales, rhonchi or wheezes noted. No increased work of breathing, no retractions or nasal flaring. Back: No spinal tenderness. No costovertebral tenderness. Full range of motion. Skin: Warm, dry with normal turgor. Normal color with no rashes, no lesions, and no evidence of cellulitis. MS/ Extremity: Pulses equal, no cyanosis. Neurovascular intact. Full, normal range of motion. Neuro: Awake and alert, GCS 15, oriented to person, place, time, and situation. Cranial nerves II-XII grossly intact. Motor strength 5/5 in all extremities. Sensory grossly intact. Cerebellar exam normal. Normal gait. Psych: Awake, alert, with orientation to person, place and time. Behavior, mood, and affect are within normal limits. 11:01 Abdomen/GI: Inspection: abdomen appears normal, Bowel sounds: normal, in all quadrants, Palpation: mild abdominal tenderness, in the left lower quadrant, moderate abdominal tenderness, in the right lower quadrant. Vital Signs: 10:25 BP 158 / 114; Pulse 89; Resp 15; Temp 97.6(TE); Pulse Ox 99% on R/A; Weight 81.19 kg; ss Height 5 ft. 3 in. (160.02 cm); Pain 5/10; 11:19 BP 158 / 93; Pulse 62; Resp 18; Pulse Ox 100% on R/A; Pain 5/10; em 12:00 BP 129 / 88; Pulse 63; Resp 16; Pulse Ox 99% on R/A; Pain 3/10; em 13:00 BP 115 / 70; Pulse 71; Resp 18; Pulse Ox 99% on R/A; em 14:00 BP 110 / 67; Pulse 71; Resp 18; Pulse Ox 98% on R/A; Pain 2/10; em 10:25 Body Mass Index 31.71 (81.19 kg, 160.02 cm) ss MDM: 10:59 Patient medically screened. snw 13:45 Data reviewed: vital signs, nurses notes. Data interpreted: Pulse oximetry: on room air snw is 99 %. Interpretation: normal. Counseling: I had a detailed discussion with the patient and/or guardian regarding: the historical points, exam findings, and any diagnostic results supporting the discharge/admit diagnosis, lab results, radiology results, the need for outpatient follow up, to return to the emergency department if symptoms worsen or persist or if there are any questions or concerns that arise at home. Response to treatment: the patient's symptoms have markedly improved after treatment. Special discussion: Based on the patient's Hx, exam, and Dx evaluation, there is no indication for emergent surgery or inpatient Tx. It is understood by the patient/guardian that if the Sx's persist or worsen they need to return immediately for re-evaluation. I have referred the patient to see his PCP for further evaluation of high blood pressure. Based on the history and exam findings, there is no indication for further emergent testing or inpatient evaluation. I discussed with the patient/guardian the need to see the back specialist for further evaluation of the symptoms. I discussed with the patient/guardian the need to see the primary care provider for further evaluation of the symptoms. 07/07 10:57 Order name: Urine Dipstick--Ancillary (enter results); Complete Time: 11:07 07/07 11:00 Order name: Basic Metabolic Panel; Complete Time: 12:15 snw 07/07 11:00 Order name: CBC with Diff; Complete Time: 12:15 snw 07/07 11:00 Order name: Creatinine for Radiology; Complete Time: 12:15 snw 07/07 11:00 Order name: Hepatic Function; Complete Time: 12:15 snw 07/07 11:00 Order name: Lipase; Complete Time: 12:15 snw 07/07 11:00 Order name: IV Saline Lock; Complete Time: 11:37 snw 07/07 11:00 Order name: Labs collected and sent; Complete Time: 11:37 snw 07/07 11:00 Order name: Urine Test (obtain specimen); Complete Time: 11:00 snw 07/07 11:00 Order name: CT Abd/Pelvis - PO and IV Contrast; Complete Time: 13:42 snw 07/07 11:08 Order name: Misc. Order: please input medications; Complete Time: 11:47 snw Administered Medications: 11:18 Drug: Phenergan 12.5 mg Route: IVP; Site: left antecubital; em 12:00 Follow up: Response: No adverse reaction; Nausea is decreased em 11:20 Drug: fentaNYL (PF) 50 mcg Route: IVP; Site: left antecubital; em 12:00 Follow up: Response: No adverse reaction; Marked relief of symptoms; Pain is decreased; em RASS: Alert and Calm (0) 14:17 Not Given (Patient Refused): TORadol 30 mg IVP once em Disposition: 14:50 Co-signature as Attending Physician, Carlos Andrade MD I agree with the assessment and yuriy plan of care. Disposition: 07/08/19 13:44 Discharged to Home. Impression: Low back pain, Lower abdominal pain, unspecified. - Condition is Stable. - Discharge Instructions: Abdominal Pain, Adult, Back Pain, Adult, Musculoskeletal Pain, Back Injury Prevention, [id number], Cryotherapy, Rehydration, Adult, Heat Therapy. - Prescriptions for Diclofenac Sodium 75 mg Oral Tablet Sustained Release - take 1 tablet by ORAL route 2 times per day; 30 tablet. orphenadrine citrate 100 mg Oral Tablet Sustained Release - take 1 tablet by ORAL route 2 times per day As needed; 20 tablet. - Work release form, Medication Reconciliation Form, Thank You Letter, Antibiotic Education, Prescription Opioid Use form. - Follow up: Emergency Department; When: As needed; Reason: Worsening of condition. Follow up: Goran Huang MD; When: 2 - 3 days; Reason: Recheck today's complaints, Continuance of care, Re-evaluation by your physician. Signatures: Dispatcher [employer] EDCarlos Martinez MD MD cha Therrien, Shelly, UNIT AIDE TECH-C UNIT AIDE TECH-Csnw Tony Thomas, RN RN Lian Delgadillo RN RN ss Corrections: (The following items were deleted from the chart) 14:28 13:44 07/08/2019 13:44 Discharged to Home. Impression: Low back pain; Lower abdominal em pain, unspecified. Condition is Stable. Forms are Medication Reconciliation Form, Thank You Letter, Antibiotic Education, Prescription Opioid Use. Follow up: Emergency Department; When: As needed; Reason: Worsening of condition. Follow up: Goran Huang; When: 2 - 3 days; Reason: Recheck today's complaints, Continuance of care, Re-evaluation by your physician. snw
--- NOTE | 2019-07-08 13:45 | ER ---
Nurse's Notes [facility] Name: Shirley Tariq Age: 49 yrs Sex: Female : 1970 Arrival Date: 07/08/2019 Time: 09:57 Bed 16 Private MD: Goran Huang Diagnosis: Low back pain;Lower abdominal pain, unspecified Presentation: 07/07 10:25 Chief complaint: Patient states: Diagnosed with epiploic appendagitis last December, but ss pain went away. PT reports that over the past 3-4 days, she has been experiencing the same exact pain. Coronavirus screen: The patient has NOT traveled to [place] in the past 14 days. Proceed with normal triage procedures. Ebola Screen: Patient denies exposure to infectious person. Patient denies travel to an Ebola-affected area in the 21 days before illness onset. Initial Sepsis Screen: Does the patient meet any 2 criteria? No. Patient's initial sepsis screen is negative. Does the patient have a suspected source of infection? No. Patient's initial sepsis screen is negative. Risk Assessment: Do you want to hurt yourself or someone else? Patient reports no desire to harm self or others. 10:25 Method Of Arrival: Ambulatory ss 10:25 Acuity: BRIAN 3 ss Historical: - Allergies: 10:27 No Known Allergies; ss - Home Meds: 11:53 metformin 500 mg Oral tr24 [Active]; hydrochlorothiazide 25 mg Oral tab 1 tab once em daily [Active]; losartan 50 mg oral tab 1 tab once daily [Active]; rosuvastatin 10 mg oral tab 1 tab once daily [Active]; - PMHx: 10:27 Hyperlipidemia; Hypertension; ss - PSHx: 10:27 Tubal ligation; Ablation; ss - Immunization history:: Adult Immunizations up to date. - Social history:: Smoking status: Patient denies any tobacco usage or history of. Screenin:10 Abuse screen: Denies threats or abuse. Nutritional screening: No deficits noted. em Tuberculosis screening: No symptoms or risk factors identified. Fall Risk None identified. Assessment: 11:10 General: Appears in no apparent distress. comfortable, Behavior is calm, cooperative, em Denies fever. Pain: Complains of pain in right lower quadrant Pain currently is 5 out of 10 on a pain scale. Pain began 2-3 days ago. Neuro: Level of Consciousness is awake, alert, obeys commands, Oriented to person, place, time, situation, Appropriate for age. Cardiovascular: Capillary refill < 3 seconds Patient's skin is warm and dry. Respiratory: Airway is patent Respiratory effort is even, unlabored, Respiratory pattern is regular, symmetrical. GI: Bowel sounds present X 4 quads. Abd is soft X 4 quads Abdomen is tender to palpation in right lower quadrant and left lower quadrant Reports nausea, vomiting, Patient currently denies diarrhea. Derm: Skin is intact, is healthy with good turgor, Skin is pink, warm \T\ dry. Musculoskeletal: Capillary refill < 3 seconds, Range of motion: intact in all extremities. 11:27 Reassessment: finished drinking PO contrast, tolerated well, CT dept. notified. em 12:45 Reassessment: Patient appears in no apparent distress at this time. Patient and/or em family updated on plan of care and expected duration. Pain level reassessed. Patient is alert, oriented x 3, equal unlabored respirations, skin warm/dry/pink. pending CT Patient states feeling better. Patient states symptoms have improved. 13:05 Reassessment: Patient appears in no apparent distress at this time. wheeled to CT via em wheelchair. 13:30 Reassessment: Patient appears in no apparent distress at this time. Patient and/or em family updated on plan of care and expected duration. Pain level reassessed. Patient is alert, oriented x 3, equal unlabored respirations, skin warm/dry/pink. rates pain 2/10 Patient states feeling better. Patient states symptoms have improved. Vital Signs: 10:25 BP 158 / 114; Pulse 89; Resp 15; Temp 97.6(TE); Pulse Ox 99% on R/A; Weight 81.19 kg; ss Height 5 ft. 3 in. (160.02 cm); Pain 5/10; 11:19 BP 158 / 93; Pulse 62; Resp 18; Pulse Ox 100% on R/A; Pain 5/10; em 12:00 BP 129 / 88; Pulse 63; Resp 16; Pulse Ox 99% on R/A; Pain 3/10; em 13:00 BP 115 / 70; Pulse 71; Resp 18; Pulse Ox 99% on R/A; em 14:00 BP 110 / 67; Pulse 71; Resp 18; Pulse Ox 98% on R/A; Pain 2/10; em 10:25 Body Mass Index 31.71 (81.19 kg, 160.02 cm) ED Course: 09:57 Patient arrived in ED. mr 09:57 Goran Huang MD is Private Physician. mr 10:27 Triage completed. ss 10:27 Arm band placed on right wrist. ss 10:46 Tony Thomas, RN is Primary Nurse. em 10:54 [facility]C [facility]. snw 10:54 Carlos Andrade MD is Attending Physician. snw 11:10 Patient has correct armband on for positive identification. Placed in gown. Bed in low em position. Call light in reach. Side rails up X2. Pulse ox on. NIBP on. 11:10 Initial lab(s) drawn, by me, sent to lab. Inserted saline lock: 20 gauge in left em antecubital area, using aseptic technique. Blood collected. 13:27 CT Abd/Pelvis - PO and IV Contrast In Process Unspecified. EDMS 13:43 Goran Huang MD is Referral Physician. snw 14:25 No provider procedures requiring assistance completed. IV discontinued, intact, em bleeding controlled, No redness/swelling at site. Pressure dressing applied. Administered Medications: 11:18 Drug: Phenergan 12.5 mg Route: IVP; Site: left antecubital; em 12:00 Follow up: Response: No adverse reaction; Nausea is decreased em 11:20 Drug: fentaNYL (PF) 50 mcg Route: IVP; Site: left antecubital; em 12:00 Follow up: Response: No adverse reaction; Marked relief of symptoms; Pain is decreased; em RASS: Alert and Calm (0) 14:17 Not Given (Patient Refused): TORadol 30 mg IVP once em Outcome: 13:44 Discharge ordered by . snw 14:26 Discharged to home ambulatory, with family. em 14:26 Condition: good 14:26 Discharge instructions given to patient, Instructed on discharge instructions, follow up and referral plans. medication usage, Demonstrated understanding of instructions, follow-up care, medications, Prescriptions given X 2. 14:28 Patient left the ED. em Signatures: Dispatcher [employer] EDMS Kaelyn Fung FNP-C FNP-Csnw Yobany Netta mr William, Tony, RN RN em Lian Merritt, RN RN ss
[2019-07-08] MEDS ORDERED: KETOROLAC 30 MG/ML INJ ONE (14:02)
[2019-07-08 14:46] VITALS: TEMP 97.6
[2019-07-08 14:59] VITALS: BP 110/67; O2SAT 98
== END 2019-07-08 14:28 | disposition home or self-care (01) ==
LOC: ER 09:54
DX: R10.31 Right lower quadrant pain (principal); M54.5 Low back pain; I10 Essential (primary) hypertension; E78.5 Hyperlipidemia, unspecified
CPT/HCPCS: 85025; 80048; 36415; 80076; 81003; 83690; 74177; 96375; 96374; 99284; Q9967; J2550; J3010

== ENCOUNTER 2020-12-11 05:39 | Emergency (ER) | payer OTHER, BC ==
--- OUTSIDE RECORDS SUMMARY | 2020-12-11 05:42 | XMS REPORT | Continuity of Care Document ---
:1970 Author Organization [facility] t Address [address] [place] [address] Dr. Horton [address] [place] [id number] Care Team Providers Name Role Phone Unavailable Unavailable Unavailable Problems This patient has no known problems. Allergies, Adverse Reactions, Alerts This patient has no known allergies or adverse reactions. Medications This patient has no known medications. Procedures This patient has no known procedures. Results This patient has no known results.
--- NOTE | 2020-12-11 07:23 | EDPHYS ---
Physician Documentation [facility] Name: Shirley Tariq Age: 50 yrs Sex: Female : 1970 Arrival Date: 12/11/2020 Time: 05:42 Bed Waiting Private MD: ED Physician Gary Patel HPI: 12/11 06:37 This 50 yrs old Female presents to ER via Ambulatory with complaints of Wrist jr8 Injury, Hand Injury. 06:37 The patient or guardian reports pain, swelling, tenderness. jr8 06:41 The complaints affect the MCP of right index finger. Context: The problem was sustained jr8 at home, resulted from an unknown cause. Onset: The symptoms/episode began/occurred acutely, today. Modifying factors: The symptoms are alleviated by nothing, the symptoms are aggravated by movement. Associated signs and symptoms: The patient has no apparent associated signs or symptoms. Severity of symptoms: At their worst the symptoms were mild, in the emergency department the symptoms are unchanged. The patient has not experienced similar symptoms in the past. The patient has not recently seen a physician. 06:50 This is a 50-year-old female that presented emergency room for acute onset right MCP jr8 pain to the first digit. Denies trauma to the hand. Went to bed feeling fine last night and then woke up with pain to the affected extremity this morning.. 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 - Social history:: Smoking status: Patient denies any tobacco usage or history of. ROS: 06:50 Eyes: Negative for injury, pain, redness, and discharge, ENT: Negative for injury, jr8 pain, and discharge, Neck: Negative for injury, pain, and swelling, Cardiovascular: Negative for chest pain, palpitations, and edema, Respiratory: Negative for shortness of breath, cough, wheezing, and pleuritic chest pain, Abdomen/GI: Negative for abdominal pain, nausea, vomiting, diarrhea, and constipation, Back: Negative for injury and pain, Skin: Negative for injury, rash, and discoloration, Neuro: Negative for headache, weakness, numbness, tingling, and seizure. 06:50 MS/extremity: Positive for decreased range of motion, pain, swelling, tenderness, of the MCP of right index finger. Exam: 06:50 Constitutional: This is a well developed, well nourished patient who is awake, alert, jr8 and in no acute distress. Neck: Trachea midline, no thyromegaly or masses palpated, and no cervical lymphadenopathy. Supple, full range of motion without nuchal rigidity, or vertebral point tenderness. No Meningismus. Cardiovascular: Regular rate and rhythm with a normal S1 and S2. No gallops, murmurs, or rubs. Normal PMI, no JVD. No pulse deficits. Respiratory: Lungs have equal breath sounds bilaterally, clear to auscultation and percussion. No rales, rhonchi or wheezes noted. No increased work of breathing, no retractions or nasal flaring. Skin: Warm, dry with normal turgor. Normal color with no rashes, no lesions, and no evidence of cellulitis. Neuro: Awake and alert, GCS 15, oriented to person, place, time, and situation. Cranial nerves II-XII grossly intact. Motor strength 5/5 in all extremities. Sensory grossly intact. 06:50 Musculoskeletal/extremity: Extremities: grossly normal except: noted in the MCP of right index finger: Mild swelling noted to the first MCP right hand. Moderate tenderness upon palpation. No erythema around joint. Full active range of motion but decreased passive range of motion. No other acute findings to the affected extremity. No external signs of trauma., Circulation is intact in all extremities. Sensation intact. Vital Signs: 06:25 BP 154 / 79; Pulse 71; Resp 16 S; Temp 98.2(O); Pulse Ox 97% on R/A; Weight 87.09 kg bb (R); Height 5 ft. 3 in. (160.02 cm) (R); Pain 5/10; 06:25 Body Mass Index 34.01 (87.09 kg, 160.02 cm) bb MDM: 06:41 Patient medically screened. jr8 07:22 Data reviewed: vital signs, nurses notes, radiologic studies, plain films. Data jr8 interpreted: Pulse oximetry: on room air is 97 %. Interpretation: normal. Counseling: I had a detailed discussion with the patient and/or guardian regarding: the historical points, exam findings, and any diagnostic results supporting the discharge/admit diagnosis, radiology results, the need for outpatient follow up, a family practitioner, to return to the emergency department if symptoms worsen or persist or if there are any questions or concerns that arise at home. ED course: No acute findings on plain film image. Will discharge with anti-inflammatories and to follow-up with primary care physician next few days.. 12/11 06:33 Order name: XRAY Hand RIGHT 3 View bb Administered Medications: No medications were administered Disposition Summary: 12/11/20 07:23 Discharge Ordered Location: Home jr8 Problem: new jr8 Symptoms: have improved jr8 Condition: Stable jr8 Diagnosis - Pain in joint jr8 Followup: jr8 - With: Private Physician - When: 2 - 3 days - Reason: Recheck today's complaints, Continuance of care, Re-evaluation by your physician Discharge Instructions: - Discharge Summary Sheet jr8 - Joint Pain jr8 - Osteoarthritis jr8 - Hand Pain jr8 Forms: - Medication Reconciliation Form jr8 - Thank You Letter jr8 - Antibiotic Education jr8 - Prescription Opioid Use jr8 Prescriptions: - meloxicam 15 mg Oral tablet - take 1 tablet by ORAL route once daily As needed; 12 tablet; Refills: 0, jr8 Product Selection Permitted Signatures: Dispatcher [employer] Mago Clay RN RN bb Moses Galindo PA PA jr8
--- NOTE | 2020-12-11 07:23 | ER ---
Nurse's Notes [facility] Name: Shirley Tariq Age: 50 yrs Sex: Female : 1970 Arrival Date: 12/11/2020 Time: 05:42 Bed Waiting Private MD: Diagnosis: Pain in joint Presentation: 12/11 06:25 Chief complaint: Patient states: she woke up this morning with pain and swelling to her bb right hand. Coronavirus screen: At this time, the client does not indicate any symptoms associated with coronavirus-19. Ebola Screen: No symptoms or risks identified at this time. Initial Sepsis Screen: Does the patient meet any 2 criteria? No. Patient's initial sepsis screen is negative. Does the patient have a suspected source of infection? No. Patient's initial sepsis screen is negative. Risk Assessment: Do you want to hurt yourself or someone else? Patient reports no desire to harm self or others. Onset of symptoms was December 11, 2020. 06:25 Method Of Arrival: Ambulatory bb 06:25 Acuity: BRIAN 4 bb Triage Assessment: :26 General: Appears in no apparent distress. uncomfortable, Behavior is calm, cooperative. bb Pain: Complains of pain in right hand Pain currently is 5 out of 10 on a pain scale. Neuro: Level of Consciousness is awake, alert, obeys commands, Oriented to person, place, time, situation. Cardiovascular: Capillary refill < 3 seconds Patient's skin is warm and dry. Respiratory: Respiratory effort is even, unlabored, Respiratory pattern is regular. GI: No signs and/or symptoms were reported involving the gastrointestinal system. Derm: Skin is pink, warm \T\ dry. Musculoskeletal: Circulation, motion, and sensation intact. Reports pain in right hand. Injury Description: unknown. 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 - Social history:: Smoking status: Patient denies any tobacco usage or history of. Assessment: 08:05 Reassessment: Patient is alert, oriented x 3, equal unlabored respirations, skin aa5 warm/dry/pink. Vital Signs: 06:25 BP 154 / 79; Pulse 71; Resp 16 S; Temp 98.2(O); Pulse Ox 97% on R/A; Weight 87.09 kg bb (R); Height 5 ft. 3 in. (160.02 cm) (R); Pain 5/10; 06:25 Body Mass Index 34.01 (87.09 kg, 160.02 cm) bb ED Course: 05:42 Patient arrived in ED. 06:26 Triage completed. bb 06:26 Arm band placed on Patient placed in waiting room, Patient notified of wait time. bb 06:36 Moses Galindo PA is PHCP. jr8 06:36 Gary Patel MD is Attending Physician. jr8 09:10 XRAY Hand RIGHT 3 View In Process Unspecified. EDMS Administered Medications: No medications were administered Outcome: 07:23 Discharge ordered by . jr8 08:05 Discharged to home ambulatory, with family. aa5 08:05 Condition: stable 08:05 Discharge instructions given to patient, Instructed on discharge instructions, follow up and referral plans. medication usage, Demonstrated understanding of instructions, follow-up care, medications, Prescriptions given X 1. 08:08 Patient left the ED. aa5 Signatures: Dispatcher [employer] EDMS Mago Portillo RN RN bb Leisa Merida, RN RN aa5 Moses Galindo PA PA jr8 Astrid Arellano Corrections: (The following items were deleted from the chart) 19:18 08:08 Leisa Merida, RN is Primary Nurse. aa5 aa5
[2020-12-11 08:13] VITALS: BP 154/79; TEMP 98.2; O2SAT 97
--- NOTE | 2020-12-11 09:19 | RAD REPORT ---
EXAM DESCRIPTION: RAD - Hand Right 3 View - 12/11/2020 9:10 am CLINICAL HISTORY: Right hand pain FINDINGS: No fracture or dislocation is seen. No significant bone or joint abnormality noted
== END 2020-12-11 08:08 | disposition home or self-care (01) ==
LOC: ER 05:39
DX: M79.644 Pain in right finger(s) (principal); I10 Essential (primary) hypertension
CPT/HCPCS: 99283

== ENCOUNTER 2021-02-28 19:36 | Emergency (ER) | payer OTHER, BC ==
[2021-02-28] MEDS ORDERED: dexAMETHasone 10 MG/ML VIAL ONE (20:47)
--- NOTE | 2021-02-28 21:46 | EDPHYS ---
Physician Documentation [facility] Name: Shirley Tariq Age: 51 yrs Sex: Female : 1970 Arrival Date: 02/28/2021 Time: 19:39 Bed 15 Private MD: RAJAN Physician Gary Patel HPI: 02/28 20:06 This 51 yrs old Female presents to ER via Ambulatory with complaints of Sore mh7 Throat, Vocal cord damage, Ear Pain. 20:06 The patient presents with sore throat. The patient describes throat pain as mh7 intermittent. Onset: The symptoms/episode began/occurred 1 week(s) ago. Severity of symptoms: At their worst the symptoms were mild, 4 day(s) ago, in the emergency department the symptoms are unchanged. Modifying factors: The symptoms are alleviated by nothing, the symptoms are aggravated by nothing. Associated signs and symptoms: Pertinent positives: cough, earache, Sore throat Pertinent negatives chest pain, chills, diarrhea, dysphagia, fever, flu-like symptoms, headache, nausea, rhinorrhea, shortness of breath, vomiting. The patient has experienced similar episodes in the past, multiple times. Patient with a history of laryngopharyngeal reflux disease and hoarseness was being treated by ENT doctor and has had laryngoscopy earlier this year complains of flare up of symptoms for 1 week. She has had sore throat, right ear pain, and intermittent cough. She denies any fever, neck pain, difficulty swallowing, headache, chest pain, abdominal pain, shortness of breath, nausea, vomiting, dizziness, numbness/tingling, weakness. . Historical: - Allergies: 19:50 No Known Allergies; em - Home Meds: 21:55 Crestor Oral [Active]; hydrochlorothiazide 25 mg Oral tab 1 tab once daily [Active]; dc2 losartan 50 mg Oral tab 1 tab once daily [Active]; metformin 500 mg Oral tr24 [Active]; rosuvastatin 10 mg Oral tab 1 tab once daily [Active]; - PMHx: 20:00 Hyperlipidemia; Hypertension; dc2 - PSHx: 19:50 Ligation of fallopian tube; Tonsillectomy; em - Immunization history:: Client reports receiving the 2nd dose of the Covid vaccine. - Social history:: Smoking status: Patient denies any tobacco usage or history of. ROS: 20:06 Constitutional: Negative for fever, chills, and weight loss, Eyes: Negative for injury, mh7 pain, redness, and discharge. 20:06 Neck: Negative for injury, pain, and swelling, Cardiovascular: Negative for chest pain, palpitations, and edema, Respiratory: Negative for shortness of breath, cough, wheezing, and pleuritic chest pain, Abdomen/GI: Negative for abdominal pain, nausea, vomiting, diarrhea, and constipation, Back: Negative for injury and pain, : Negative for injury, bleeding, discharge, and swelling, MS/Extremity: Negative for injury and deformity, Skin: Negative for injury, rash, and discoloration, Neuro: Negative for headache, weakness, numbness, tingling, and seizure, Psych: Negative for depression, anxiety, suicide ideation, homicidal ideation, and hallucinations, Allergy/Immunology: Negative for hives, rash, and allergies, Endocrine: Negative for neck swelling, polydipsia, polyuria, polyphagia, and marked weight changes, Hematologic/Lymphatic: Negative for swollen nodes, abnormal bleeding, and unusual bruising. Exam: 20:06 Constitutional: This is a well developed, well nourished patient who is awake, alert, mh7 and in no acute distress. Head/Face: Normocephalic, atraumatic. Eyes: Pupils equal round and reactive to light, extra-ocular motions intact. Lids and lashes normal. Conjunctiva and sclera are non-icteric and not injected. Cornea within normal limits. Periorbital areas with no swelling, redness, or edema. 20:06 Neck: Trachea midline, no thyromegaly or masses palpated, and no cervical lymphadenopathy. Supple, full range of motion without nuchal rigidity, or vertebral point tenderness. No Meningismus. Chest/axilla: Normal chest wall appearance and motion. Nontender with no deformity. No lesions are appreciated. Cardiovascular: Regular rate and rhythm with a normal S1 and S2. No gallops, murmurs, or rubs. Normal PMI, no JVD. No pulse deficits. Respiratory: Lungs have equal breath sounds bilaterally, clear to auscultation and percussion. No rales, rhonchi or wheezes noted. No increased work of breathing, no retractions or nasal flaring. Abdomen/GI: Soft, non-tender, with normal bowel sounds. No distension or tympany. No guarding or rebound. No evidence of tenderness throughout. Back: No spinal tenderness. No costovertebral tenderness. Full range of motion. Skin: Warm, dry with normal turgor. Normal color with no rashes, no lesions, and no evidence of cellulitis. MS/ Extremity: Pulses equal, no cyanosis. Neurovascular intact. Full, normal range of motion. Neuro: Awake and alert, GCS 15, oriented to person, place, time, and situation. Cranial nerves II-XII grossly intact. Motor strength 5/5 in all extremities. Sensory grossly intact. Cerebellar exam normal. Normal gait. Psych: Awake, alert, with orientation to person, place and time. Behavior, mood, and affect are within normal limits. 20:06 ENT: External ear(s): are unremarkable, Ear canal(s): are normal, clear, TM's: are mh7 normal, Nose: is normal, Mouth: is normal, Posterior pharynx: Airway: normal, Tonsils: Removed, Uvula: normal, swelling, is not appreciated, erythema, that is mild, exudate, is not appreciated, peritonsillar mass, is not appreciated, pooling of secretions, is not appreciated, Dental exam: normal, Voice: is hoarse, Breath odor: is normal. Vital Signs: 19:46 BP 175 / 91; Pulse 93; Resp 18; Temp 97.6; Pulse Ox 99% on R/A; Weight 89.81 kg; Height em 5 ft. 3 in. (160.02 cm); Pain 10/10; 20:15 BP 147 / 85; Pulse 79; Resp 18; Pulse Ox 99% ; Pain 8/10; dc2 21:00 BP 130 / 81; Pulse 77; Resp 18; Pulse Ox 99% ; Pain 8/10; dc2 21:50 BP 112 / 67; Pulse 72; Resp 18; Temp 98.0; Pulse Ox 98% ; Pain 7/10; dc2 19:46 Body Mass Index 35.07 (89.81 kg, 160.02 cm) em MDM: 21:41 Differential diagnosis: bronchitis, cocksackie virus, group A strep tonsillitis, mh7 laryngitis, pharyngitis, uvulitis, viral syndrome. Data reviewed: vital signs, nurses notes, old medical records, lab test result(s), Strep negative. Data interpreted: Pulse oximetry: on room air is 99 %. Interpretation: normal. Counseling: I had a detailed discussion with the patient and/or guardian regarding: the historical points, exam findings, and any diagnostic results supporting the discharge/admit diagnosis, lab results, the need for outpatient follow up, an ENT specialist, to return to the emergency department if symptoms worsen or persist or if there are any questions or concerns that arise at home. Response to treatment: the patient's symptoms have markedly improved after treatment, patient is well hydrated. Tolerating oral intake without difficulty. ED course: Feels better, well-appearing, no acute distress, vital signs stable, no focal neurological deficits. Tolerating oral intake without difficulty. Discussed test results and findings. Patient states that she has appointment with her ENT doctor tomorrow. She request to be discharged in ED at this time but will return if worsening symptoms or other urgent concerns.. 21:45 Patient medically screened. [facility] 02/28 20:04 Order name: Rapid Strep; Complete Time: 21:23 [facility] 02/28 20:56 Order name: Throat Culture [facility] 02/28 21:23 Order name: PO challenge; Complete Time: 21:52 [facility] Administered Medications: 20:22 Drug: Decadron (dexamethasone) 10 mg Route: IM; Site: left ventrogluteal; dc2 21:52 Follow up: Response: No adverse reaction dc2 Disposition Summary: 02/28/21 21:45 Discharge Ordered Location: Home [facility] Problem: an acute exacerbation [facility] Symptoms: have improved [facility] Condition: Stable [facility] Diagnosis - Laryngitis Exacerbation [facility] Followup: [facility] - With: Private Physician - When: 1 - 2 days - Reason: Worsening of condition, Recheck today's complaints, Continuance of care, Re-evaluation by your physician Followup: [facility] - With: Marychuy Castro MD - When: 1 - 2 days - Reason: Worsening of condition, Recheck today's complaints Discharge Instructions: - Discharge Summary Sheet [facility] - Laryngitis, [id number] [facility] Forms: - Medication Reconciliation Form [facility] - Thank You Letter 7 - Antibiotic Education 7 - Prescription Opioid Use [facility] - Work release form tt3 Signatures: Dispatcher [employer] Tony Gee RN RN em Holmes, Maurice, MD MD [facility] Atiya, Felecia, RN RN dc2 Corrections: (The following items were deleted from the chart) 20: 19:50 PMHx: Hyperlipidemia; em dc2 20: 19:50 PMHx: Hypertension; em dc2 20:21 20:06 ENT: External ear(s): are unremarkable, Ear canal(s): are normal, clear, TM's: mh7 are normal, Nose: is normal, Mouth: is normal, Posterior pharynx: Airway: normal, Tonsils: bilaterally enlarged, with erythema, Uvula: normal, swelling, is not appreciated, erythema, that is mild, exudate, is not appreciated, peritonsillar mass, is not appreciated, pooling of secretions, is not appreciated, Dental exam: normal, Voice: Mild, Breath odor: is normal, 7
--- NOTE | 2021-02-28 21:46 | ER ---
Nurse's Notes [facility] Name: Shirley Tariq Age: 51 yrs Sex: Female : 1970 Arrival Date: 02/28/2021 Time: 19:39 Bed 15 Private MD: Diagnosis: Laryngitis Exacerbation Presentation: 02/28 19:46 Chief complaint: Patient states: has been getting treated for vocal cord problems since em August, this episode started 1 week ago with with voice hoarseness, today woke up with right ear pain, sore throat since May, denies fever. Coronavirus screen: Vaccine status: Patient reports receiving the 2nd dose of the covid vaccine. Ebola Screen: Patient negative for fever greater than or equal to 101.5 degrees Fahrenheit, and additional compatible Ebola Virus Disease symptoms Patient denies exposure to infectious person. Patient denies travel to an Ebola-affected area in the 21 days before illness onset. No symptoms or risks identified at this time. Initial Sepsis Screen: Does the patient meet any 2 criteria? HR > 90 bpm. No. Patient's initial sepsis screen is negative. Does the patient have a suspected source of infection? No. Patient's initial sepsis screen is negative. Risk Assessment: Do you want to hurt yourself or someone else? Patient reports no desire to harm self or others. Onset of symptoms was February 28, 2021. 19:46 Method Of Arrival: Ambulatory em 19:46 Acuity: BRIAN 4 em Triage Assessment: 20:00 General: Appears in no apparent distress. Behavior is calm, cooperative. dc2 21:56 EENT: Throat is slightly red. No tonsillars seen. dc2 Historical: - Allergies: 19:50 No Known Allergies; em - Home Meds: 21:55 Crestor Oral [Active]; hydrochlorothiazide 25 mg Oral tab 1 tab once daily [Active]; dc2 losartan 50 mg Oral tab 1 tab once daily [Active]; metformin 500 mg Oral tr24 [Active]; rosuvastatin 10 mg Oral tab 1 tab once daily [Active]; - PMHx: 20:00 Hyperlipidemia; Hypertension; dc2 - PSHx: 19:50 Ligation of fallopian tube; Tonsillectomy; em - Immunization history:: Client reports receiving the 2nd dose of the Covid vaccine. - Social history:: Smoking status: Patient denies any tobacco usage or history of. Screenin:58 Abuse screen: Denies threats or abuse. Denies injuries from another. Nutritional dc2 screening: No deficits noted. Tuberculosis screening: No symptoms or risk factors identified. Never had TB. Fall Risk None identified. No fall in past 12 months (0 pts). No secondary diagnosis (0 pts). No IV (0 pts). Ambulatory Aid- None/Bed Rest/Nurse Assist (0 pts). Gait- Normal/Bed Rest/Wheelchair (0 pts) Mental Status- Oriented to own ability (0 pts). Total Connelly Fall Scale indicates No Risk (0-24 pts). Assessment: 19:59 Pain: Complains of pain in throat. Pain: Complains of pain in throat. Respiratory: dc2 Airway is patent. Respiratory: Airway is patent Respiratory effort is even, unlabored, Breath sounds are clear. Vital Signs: 19:46 BP 175 / 91; Pulse 93; Resp 18; Temp 97.6; Pulse Ox 99% on R/A; Weight 89.81 kg; Height em 5 ft. 3 in. (160.02 cm); Pain 10/10; 20:15 BP 147 / 85; Pulse 79; Resp 18; Pulse Ox 99% ; Pain 8/10; dc2 21:00 BP 130 / 81; Pulse 77; Resp 18; Pulse Ox 99% ; Pain 8/10; dc2 21:50 BP 112 / 67; Pulse 72; Resp 18; Temp 98.0; Pulse Ox 98% ; Pain 7/10; dc2 19:46 Body Mass Index 35.07 (89.81 kg, 160.02 cm) em ED Course: 19:39 Patient arrived in ED. 2 19:50 Triage completed. em 19:50 Arm band placed on. em 19:52 Gary Patel MD is Attending Physician. 7 19:58 Felecia Rajput, ASHLIE is Primary Nurse. dc2 20:00 Patient has correct armband on for positive identification. Bed in low position. Call dc2 light in reach. Side rails up X 1. Pulse ox on. NIBP on. Door closed. Lights dimmed. 20:22 Rapid Strep Sent. dc2 21:44 Marychuy Castro MD is Referral Physician. 7 21:50 Patient did not have IV access during this emergency room visit. dc2 21:55 No provider procedures requiring assistance completed. dc2 Administered Medications: 20:22 Drug: Decadron (dexamethasone) 10 mg Route: IM; Site: left ventrogluteal; dc2 21:52 Follow up: Response: No adverse reaction dc2 Outcome: 21:45 Discharge ordered by . [facility] 21:57 Discharged to home ambulatory. dc2 21:57 Condition: good 21:57 Discharge instructions given to patient, Instructed on discharge instructions, follow up and referral plans. Demonstrated understanding of instructions, follow-up care. 22:02 Patient left the ED. dc2 Signatures: Tony Thomas RN RN Erica Wade 2 Gary Patel MD MD [facility] Felecia Rajput RN RN dc2 Corrections: (The following items were deleted from the chart) 20:01 19:50 PMHx: Hyperlipidemia; em dc2 20:01 19:50 PMHx: Hypertension; dc2
[2021-02-28 22:18] VITALS: BP 112/67; TEMP 98; O2SAT 98
== END 2021-02-28 22:02 | disposition home or self-care (01) ==
LOC: ER 19:36
DX: J04.0 Acute laryngitis (principal); I10 Essential (primary) hypertension; E78.5 Hyperlipidemia, unspecified
CPT/HCPCS: 87070; 87081; 96372; 99284; J1100

== ENCOUNTER 2021-10-09 19:09 | Emergency (ER) | payer BC ==
--- OUTSIDE RECORDS SUMMARY | 2021-10-09 19:14 | XMS REPORT | Continuity of Care Document ---
:1970 Author Organization [facility] t Address [address] [place] [address] Care Team Providers Name Role Phone (Robbins), Clinic Primary Care Physician HUNDL Attending Clinician Unavailable Hundsuzanne SERVER SERVICE ASSISTANT-C Attending Clinician [id number] Attending Clinician Unavailable (KEZIA), CLINIC Attending Clinician Unavailable Zander HART Attending Clinician Unavailable ZEINAB CAREY Attending Clinician Unavailable Payers Payer Name Policy Type Policy Number Effective Date Expiration Date Zander pascual [facility] 2 [id number] 2020 00:00:00 Problems Condition Condition Condition Status Onset Resolution Last Treating Co mments Source Name Details Category Date Date Treatment Clinician Date Prediabete Prediabete Disease Active Aroldo tavarez 05-28 Seybold 00:00: 00 LPRD LPRD Disease Active Karly (laryngoph (laryngoph 05-28 Se ybold aryngeal aryngeal 00:00: reflux reflux 00 disease) disease) Leukopenia Leukopenia Disease Active Aroldo garay 05-28 Seybold 00:00: 00 No known No known Disease Yesy y active active Seybold problems problems AR AR Disease Active Karly (allergic (allergic Seyb old rhinitis) rhinitis) Fatty Fatty Disease Active Karly liver liver Seybold HTN HTN Disease Active Karly (hypertens (hypertens Se ybold ion) ion) Hyperlipid Hyperlipid Disease Active K elseoz emia emia Seybold Metabolic Metabolic Disease Active Neville sey syndrome syndrome Seybol d Vitamin D Vitamin D Disease Active Neville sey deficiency deficiency Se ybold Allergies, Adverse Reactions, Alerts Allergy Allergy Status Severity Reaction(s) Onset Inactive Treating Comm ents Source Name Type Date Date Clinician Claudio Jones Active Cough Karly Inhibito ty to 4-08 Seybold rs adverse 00:00: reaction 00 s NO KNOWN Drug Active [facility] ALLERGIE Class ity of [facility] Social History Social Habit Start Date Stop Date Quantity Comments Source Exposure to Yes Karly Seybol d SARS-CoV-2 (event) Sex Ass[birth year] At [birth year] Karly Se ybold 00:00:00 00:00:00 Smoking Status Start Date Stop Date Source Never smoked tobacco Karly Seyb old Medications Ordered Filled Start Stop Current Ordering Indication Dosage Frequency Signature Comments Components Source Medication Medication Date Date Medication? Clinician (SIG) Name Name OZEMPIC Yes [id number] .5mg Inject 0.5 Karly (0.25 or 5-26 mg into Seybold 0.5 00:00: the skin mg/dose) 2 00 once a mg/1.5 mL week SQ Solution Pen-Injecto r Cyclobenzap Yes [id number] 5mg Q.[id number] Take 1 Karly rine HCl 5 5-26 [id number] tablet (5 Seybold MG oral 00:00: 3D mg total) Tablet 00 by mouth 3 times daily as needed for muscle spasms Diclofenac 2021- No [id number] 75mg Take 1 Karly Sodium 75 4-28 05-26 tablet (75 Sey bold MG oral 00:00: 00:00 mg total) Tablet 00 :00 by mouth Delayed in the Response morning and 1 tablet (75 mg total) in the evening. Rosuvastati Yes [id number] TAKE 1 Karly n Calcium 4-27 TABLET(40 Seybo ld 40 MG oral 00:00: MG) BY Tablet 00 MOUTH DAILY Cyclobenzap 2021-0 2021- No 10mg Take 10 mg Karly rine HCl 10 4-26 04-26 by mouth Sey bold MG oral 09:35: 00:00 daily Tablet 20 :00 Cholecalcif 2021-0 2021- No 1000U Take 1,000 Karly lavinia 25 MCG 4-26 04-26 units by Sey bold (1000 UT) 09:35: 00:00 mouth oral Tablet 19 :00 daily Cyanocobala 2021-0 2021- No 1000ug Take 1,000 Karly min 1000 4-26 04-26 mcg by Seybold MCG oral 09:35: 00:00 mouth Tablet 19 :00 daily Celecoxib 2021-0 Yes [id number] 200mg Take 1 K elsey (CeleBREX) 4-26 capsule Seybol d 200 MG oral 00:00: (200 mg Capsule 00 total) by mouth in the morning and 1 capsule (200 mg total) in the evening. Tramadol 2021-0 Yes [id number] 50mg Q.25D Take 1 Ke lsey HCl 50 MG 4-26 tablet (50 Seyb old oral Tablet 00:00: mg total) 00 by mouth every 6 hours as needed for pain OZEMPIC 2021-0 Yes [id number] .25mg Inject Neville sey (0.25 or 4-26 0.25 mg Seybold 0.5 00:00: into the mg/dose) 2 00 skin once mg/1.5 mL a week SQ Solution Pen-Injecto r Tramadol 2021-0 Yes [id number] 50mg Q.25D Take 1 Ke lsey HCl 50 MG 4-26 tablet (50 Seyb old oral Tablet 00:00: mg total) 00 by mouth every 6 hours as needed for pain OZEMPIC 2021-0 2021- No [id number] .25mg Inject Ke lsey (0.25 or 4-26 05-26 0.25 mg Seybold 0.5 00:00: 00:00 into the mg/dose) 2 00 :00 skin once mg/1.5 mL a week SQ Solution Pen-Injecto r Celecoxib 2021-0 2- No [id number] 200mg Take 1 Karly (CeleBREX) 4-26 05-26 capsule Seybo ld 200 MG oral 00:00: 00:00 (200 mg Capsule 00 :00 total) by mouth in the morning and 1 capsule (200 mg total) in the evening. Rosuvastati 2021-0 Yes [id number] TAKE 1 Karly n Calcium 3-29 TABLET(20 Seybo ld 20 MG oral 00:00: MG) BY Tablet 00 MOUTH DAILY Vitamin D, 2021-0 Yes [id number] TAKE 1 K elsey Ergocalcife 3-14 CAPSULE BY Se ybold rol, 1.25 00:00: MOUTH 1 MG (09832 00 TIME A UT) oral WEEK Capsule Vitamin D, 2021-0 Yes [id number] TAKE 1 K elsey Ergocalcife 3-14 CAPSULE BY Se ybold rol, 1.25 00:00: MOUTH 1 MG (94492 00 TIME A UT) oral WEEK Capsule Cyclobenzap 2021-0 Yes 10mg Take 10 mg Karly rine HCl 10 1-31 by mouth Seyb old MG oral 10:13: daily Tablet 54 Famotidine 2021-0 Yes 1 po qhs Neville sey (Pepcid) 40 1-31 Seybold MG oral 00:00: Tablet 00 Famotidine 2021-0 Yes 1 po qhs Neville sey (Pepcid) 40 1-31 Seybold MG oral 00:00: Tablet 00 Famotidine 2021-0 Yes 1 po qhs Neville sey (Pepcid) 40 1-31 Seybold MG oral 00:00: Tablet 00 Rosuvastati 2021-0 Yes [id number] 20mg Take 1 Karly n Calcium 1-27 tablet (20 Seyb old 20 MG oral 00:00: mg total) Tablet 00 by mouth daily Cyclobenzap 2021-0 Yes 10mg Take 10 mg Karly rine HCl 10 1-24 by mouth Seyb old MG oral 08:15: daily Tablet 32 Vitamin D, 2021-0 Yes [id number] 81788B Take 1 Karly Ergocalcife 1-24 capsule Seybo ld rol, 1.25 00:00: (50,000 MG (32754 00 units UT) oral total) by Capsule mouth once a week Nitrofurant 2021-0 Yes [id number] 100mg Take 1 Karly oin Monohyd 1-24 capsule Seybo ld Macro 00:00: (100 mg (Macrobid) 00 total) by 100 MG oral mouth 2 Capsule times daily Lidocaine Yes [id number] Swallow 5 Karly HCl 1-24 ml every Seybold (Lidocaine 00:00: 3-4 hours Viscous 00 as needed HCl) 2 % for throat mouth/throa pain t Solution Vitamin D, Yes [id number] 24607D Take 1 Karly Ergocalcife 1-24 capsule Seybo ld rol, 1.25 00:00: (50,000 MG (19896 00 units UT) oral total) by Capsule mouth once a week Nitrofurant Yes [id number] 100mg Take 1 Karly oin Monohyd 1-24 capsule Seybo ld Macro 00:00: (100 mg (Macrobid) 00 total) by 100 MG oral mouth 2 Capsule times daily Lidocaine Yes [id number] Swallow 5 Karly HCl 1-24 ml every Seybold (Lidocaine 00:00: 3-4 hours Viscous 00 as needed HCl) 2 % for throat mouth/throa pain t Solution Nitrofurant 2021- No [id number] 100mg Take 1 Karly oin Monohyd -24 04-26 capsule Seyb old Macro 00:00: 00:00 (100 mg (Macrobid) 00 :00 total) by 100 MG oral mouth 2 Capsule times daily Lidocaine 2021- No [id number] Swallow 5 Karly HCl 1-24 04-26 ml every Seybold (Lidocaine 00:00: 00:00 3-4 hours Viscous 00 :00 as needed HCl) 2 % for throat mouth/throa pain t Solution hydroCHLORO 2021- No 25mg Take 25 mg Karly thiazide 25 -28 05-21 by mouth Sey bold MG oral 09:21: 00:00 daily Tablet 56 :00 Losartan 2021- No 100mg Take 100 Neville sey Potassium -21 -21 mg by Seybold 100 MG oral 09:21: 00:00 mouth Tablet 56 :00 daily Metformin 2021- No 500mg Take 500 Ke lsey HCl ER 500 -28 05-21 mg by Seybold MG oral 09:21: 00:00 mouth 2 TABLET SR 56 :00 times 24 HR daily Rosuvastati 2021- No 10mg Take 10 mg Karly n Calcium 1-21 -21 by mouth Seybo ld 10 MG oral 09:21: 00:00 daily Tablet 56 :00 Cyclobenzap 2021-0 Yes 10mg Take 10 mg Karly rine HCl 10 -21 by mouth Seyb old MG oral 08:28: daily Tablet 44 hydroCHLORO 2021-0 Yes [id number] 25mg Take 1 Karly thiazide 25 1-21 tablet (25 Se ybold MG oral 00:00: mg total) Tablet 00 by mouth daily Losartan Yes [id number] 100mg Take 1 Ke lsey Potassium 1-21 tablet Seybold 100 MG oral 00:00: (100 mg Tablet 00 total) by mouth daily Metformin Yes [id number] 500mg Take 1 Karly HCl ER 500 -21 tablet Seybold MG oral 00:00: (500 mg TABLET SR 00 total) by 24 HR mouth 2 times daily Omeprazole 2021-0 Yes [id number] 40mg Take 1 K elsey 40 MG oral -21 capsule Seybol d Delayed 00:00: (40 mg Release 00 total) by Capsule mouth daily Rosuvastati Yes [id number] 10mg Take 1 Karly n Calcium 1-21 tablet (10 Seyb old 10 MG oral 00:00: mg total) Tablet 00 by mouth daily hydroCHLORO Yes [id number] 25mg Take 1 Karly thiazide 25 1-21 tablet (25 Se ybold MG oral 00:00: mg total) Tablet 00 by mouth daily Losartan Yes [id number] 100mg Take 1 Ke lsey Potassium 1-21 tablet Seybold 100 MG oral 00:00: (100 mg Tablet 00 total) by mouth daily Metformin 0 Yes [id number] 500mg Take 1 Karly HCl ER 500 1-21 tablet Seybold MG oral 00:00: (500 mg TABLET SR 00 total) by 24 HR mouth 2 times daily Omeprazole Yes [id number] 40mg Take 1 K elsey 40 MG oral 1-21 capsule Seybol d Delayed 00:00: (40 mg Release 00 total) by Capsule mouth daily hydroCHLORO 0 Yes [id number] 25mg Take 1 Karly thiazide 25 1-21 tablet (25 Se ybold MG oral 00:00: mg total) Tablet 00 by mouth daily Losartan 0 Yes [id number] 100mg Take 1 Ke lsey Potassium 1-21 tablet Seybold 100 MG oral 00:00: (100 mg Tablet 00 total) by mouth daily Metformin 2021-0 Yes [id number] 500mg Take 1 Karly HCl ER 500 1-21 tablet Seybold MG oral 00:00: (500 mg TABLET SR 00 total) by 24 HR mouth 2 times daily Omeprazole 2021-0 Yes [id number] 40mg Take 1 K elsey 40 MG oral 1-21 capsule Seybol d Delayed 00:00: (40 mg Release 00 total) by Capsule mouth daily hydroCHLORO 2021-0 Yes [id number] 25mg Take 1 Karly thiazide 25 1-21 tablet (25 Se ybold MG oral 00:00: mg total) Tablet 00 by mouth daily Losartan 0 Yes [id number] 100mg Take 1 Ke lsey Potassium 1-21 tablet Seybold 100 MG oral 00:00: (100 mg Tablet 00 total) by mouth daily Metformin 2021-0 Yes [id number] 500mg Take 1 Karly HCl ER 500 1-21 tablet Seybold MG oral 00:00: (500 mg TABLET SR 00 total) by 24 HR mouth 2 times daily Omeprazole 2021-0 Yes [id number] 40mg Take 1 K elsey 40 MG oral 1-21 capsule Seybol d Delayed 00:00: (40 mg Release 00 total) by Capsule mouth daily hydroCHLORO 2021-0 Yes [id number] 25mg Take 1 Karly thiazide 25 1-21 tablet (25 Se ybold MG oral 00:00: mg total) Tablet 00 by mouth daily Losartan 2021-0 Yes [id number] 100mg Take 1 Ke lsey Potassium 1-21 tablet Seybold 100 MG oral 00:00: (100 mg Tablet 00 total) by mouth daily Metformin 2021-0 Yes [id number] 500mg Take 1 Karly HCl ER 500 1-21 tablet Seybold MG oral 00:00: (500 mg TABLET SR 00 total) by 24 HR mouth 2 times daily Omeprazole 2021-0 Yes [id number] 40mg Take 1 K elsey 40 MG oral 1-21 capsule Seybol d Delayed 00:00: (40 mg Release 00 total) by Capsule mouth daily Rosuvastati 2021-0 Yes [id number] 10mg Take 1 Karly n Calcium 1-21 tablet (10 Seyb old 10 MG oral 00:00: mg total) Tablet 00 by mouth daily Omeprazole 2020-05- No TAKE 1 Sofi ey 40 MG oral 06-08 CAPSULE(40 Se ybold Delayed 00:00: 00:00 MG) BY Release 00 :00 MOUTH Capsule DAILY hydroCHLORO 2020-05 Yes 25mg Take 25 mg Karly thiazide 25 1-05 by mouth Seyb old MG oral 15:11: daily Tablet 08 Losartan 2020-05 Yes 100mg Take 100 Sofi ey Potassium 1-05 mg by Seybold 100 MG oral 15:11: mouth Tablet 08 daily Cyclobenzap 2020-05 Yes 10mg Take 10 mg Karly rine HCl 10 1-05 by mouth Seyb old MG oral 15:11: daily Tablet 08 Metformin 2020-05 Yes 500mg Take 500 Neville sey HCl ER 500 1-05 mg by Seybold MG oral 15:11: mouth 2 TABLET SR 08 times 24 HR daily Rosuvastati 2020-05 Yes 10mg Take 10 mg Karly n Calcium 1-05 by mouth Seybol d 10 MG oral 15:11: daily Tablet 08 hydrOXYzine 2020-05 Yes [id number] 10mg Q.[id number] Take 1 Karly HCl 10 MG 1-05 [id number] tablet (10 Seybold oral Tablet 00:00: 3D mg total) 00 by mouth 3 times daily as needed for itching methylPREDN 2020-05 Yes [id number] 1{cynthia} Take 1 cynthia Karly ISolone 4 1-05 by mouth Seybol d MG oral 00:00: See Admin Tablet 00 Instructio Therapy ns Use as Pack directed hydrOXYzine 2020-05 Yes [id number] 10mg Q.[id number] Take 1 Karly HCl 10 MG 1-05 [id number] tablet (10 Seybold oral Tablet 00:00: 3D mg total) 00 by mouth 3 times daily as needed for itching methylPREDN 2020-05 Yes [id number] 1{cynthia} Take 1 cynthia Karly ISolone 4 1-05 by mouth Seybol d MG oral 00:00: See Admin Tablet 00 Instructio Therapy ns Use as Pack directed hydrOXYzine 2020-05 Yes [id number] 10mg Q.[id number] Take 1 Karly HCl 10 MG 1-05 [id number] tablet (10 Seybold oral Tablet 00:00: 3D mg total) 00 by mouth 3 times daily as needed for itching methylPREDN 2020-05 Yes [id number] 1{cynthia} Take 1 cynthia Nevilleone 4 05-12 by mouth Seybol d MG oral 00:00: See Admin Tablet 00 Instructio Therapy ns Use as Pack directed hydrOXYzine 2020-05- No [id number] 10mg Q.[id number] Take 1 Karly HCl 10 MG 05-12 [id number] tablet (10 Seybold oral Tablet 00:00: 00:00 3D mg total) 00 :00 by mouth 3 times daily as needed for itching methylPREDN 2020-05- No [id number] 1{cynthia} Take 1 cynthia Nevilleone 4 05-12 by mouth Seybo ld MG oral 00:00: 00:00 See Admin Tablet 00 :00 Instructio Therapy ns Use as Pack directed Triamcinolo 2020-05- No [id number] Apply to Karly ismael 05-1204 area twice Seybold Acetonide 00:00: 05:59 daily 0.5 % apply 00 :00 externally Cream Omeprazole Yes TAKE 1 Kelse y 40 MG oral 9-10 CAPSULE(40 Sey bold Delayed 00:00: MG) BY Release 00 MOUTH Capsule DAILY Nitrofurant 2020- Yes [id number] 100mg Take 1 Karly oin Monohyd 8-27 capsule Seybo ld Macro 100 00:00: (100 mg MG oral 00 total) by Capsule mouth 2 times daily Nitrofurant 2020-0 Yes [id number] 100mg Take 1 Karly oin Monohyd 8-27 capsule Seybo ld Macro 100 00:00: (100 mg MG oral 00 total) by Capsule mouth 2 times daily Nitrofurant 2020-2021- No [id number] 100mg Take 1 Karly oin Monohyd 8-27 01-24 capsule Seyb old Macro 100 00:00: 00:00 (100 mg MG oral 00 :00 total) by Capsule mouth 2 times daily Meloxicam 2020-0 Yes 7.5mg Take 7.5 Neville sey 7.5 MG oral 8-24 mg by Seybold Tablet 00:00: mouth 00 daily Meloxicam 2020-0 Yes 7.5mg Take 7.5 Neville sey 7.5 MG oral 8-24 mg by Seybold Tablet 00:00: mouth 00 daily Meloxicam 2020-0 Yes 7.5mg Take 7.5 Neville sey 7.5 MG oral 8-24 mg by Seybold Tablet 00:00: mouth 00 daily Meloxicam 2020-0 Yes 7.5mg Take 7.5 Neville sey 7.5 MG oral 8-24 mg by Seybold Tablet 00:00: mouth 00 daily Meloxicam 2020-0 2- No 7.5mg Take 7.5 Ke lsey 7.5 MG oral 8-24 04-26 mg by Seybol d Tablet 00:00: 00:00 mouth 00 :00 daily Cephalexin 2020-0 Yes [id number] 500mg Take 1 Karly 500 MG oral 8-11 capsule Seybo ld Capsule 00:00: (500 mg 00 total) by mouth 2 times daily Cephalexin 2020-0 Yes [id number] 500mg Take 1 Karly 500 MG oral 8-11 capsule Seybo ld Capsule 00:00: (500 mg 00 total) by mouth 2 times daily Cephalexin 2020-0 Yes [id number] 500mg Take 1 Karly 500 MG oral 8-11 capsule Seybo ld Capsule 00:00: (500 mg 00 total) by mouth 2 times daily Cephalexin 2020-0 Yes [id number] 500mg Take 1 Karly 500 MG oral 8-11 capsule Seybo ld Capsule 00:00: (500 mg 00 total) by mouth 2 times daily Cephalexin 2020-0 2022- No [id number] 500mg Take 1 Karly 500 MG oral 8-11 04-26 capsule Seyb old Capsule 00:00: 00:00 (500 mg 00 :00 total) by mouth 2 times daily hydrOXYzine 2020-0 Yes [id number] 25mg Q6H Take 1 Karly HCl 25 MG 7-14 tablet (25 Seyb old oral Tablet 00:00: mg total) 00 by mouth every 6 hours as needed for itching hydrOXYzine 1-0 Yes [id number] 25mg Q6H Take 1 Karly HCl 25 MG 7-14 tablet (25 Seyb old oral Tablet 00:00: mg total) 00 by mouth every 6 hours as needed for itching hydrOXYzine 2020-0 Yes [id number] 25mg Q6H Take 1 Karly HCl 25 MG 7-14 tablet (25 Seyb old oral Tablet 00:00: mg total) 00 by mouth every 6 hours as needed for itching hydrOXYzine 2020-0 Yes [id number] 25mg Q6H Take 1 Karly HCl 25 MG 7-14 tablet (25 Seyb old oral Tablet 00:00: mg total) 00 by mouth every 6 hours as needed for itching hydrOXYzine 2020-0 2022- No [id number] 25mg Q.25D Take 1 Karly HCl 25 MG 7-14 04-26 tablet (25 Sey bold oral Tablet 00:00: 00:00 mg total) 00 :00 by mouth every 6 hours as needed for itching Lidocaine 2020-0 Yes 5 mL swish Ke lsey HCl 5-17 and Seybold (Lidocaine 00:00: swallow q Viscous 00 8 hours HCl) 2 % prn mouth/throa t Solution Lidocaine 0 Yes 5 mL swish Ke lsey HCl 5-17 and Seybold (Lidocaine 00:00: swallow q Viscous 00 8 hours HCl) 2 % prn mouth/throa t Solution Lidocaine 2020-0 2- No 5 mL swish K elsey HCl 5-17 -24 and Seybold (Lidocaine 00:00: 00:00 swallow q Viscous 00 :00 8 hours HCl) 2 % prn mouth/throa t Solution Immunizations Ordered Immunization Filled Immunization Date Status Commen ts Source Name Name Influenza, 2021-04-19 Completed Karly Barrios Injectable, Mdck, 00:00:00 Quadrivalent With Preservatie Influenza, 2021-04-19 Completed Karly Barrios Injectable, Mdck, 00:00:00 Quadrivalent With Preservatie Influenza, 2021-04-19 Completed Karly Barrios Injectable, Mdck, 00:00:00 Quadrivalent With Preservatie Influenza, 2021-04-19 Completed Karly Barrios Injectable, Mdck, 00:00:00 Quadrivalent With Preservatie Influenza, 2021-04-19 Completed Karly Barrios Injectable, Mdck, 00:00:00 Quadrivalent With Preservatie Covid-19 Vaccine 2020-08-19 Completed Karly callawaybold (Moderna), Mrna-lnp, 00:00:00 Turner Protein, Pf, 100 Mcg/0.5ml,IM Covid-19 Vaccine 2020-08-19 Completed Karly callawaybold (Moderna), Mrna-lnp, 00:00:00 Turner Protein, Pf, 100 Mcg/0.5ml,IM Covid-19 Vaccine 2020-08-19 Completed Karly martin Moderna (Spikevax), 00:00:00 Mrna-lnp, Turner Protein, Pf Covid-19 Vaccine 2020-08-19 Completed Karly marrerold Moderna (Spikevax), 00:00:00 Mrna-lnp, Turner Protein, Pf Covid-19 Vaccine 2020-08-19 Completed Karly callawaybold (Moderna), Mrna-lnp, 00:00:00 Turner Protein, Pf, 100 Mcg/0.5ml,IM Covid-19 Vaccine 2020-08-19 Completed Karly callawaybold (Moderna), Mrna-lnp, 00:00:00 Turner Protein, Pf, 100 Mcg/0.5ml,IM Covid-19 Vaccine 2020-07-22 Completed Karly Tavarez eybold (Moderna), Mrna-lnp, 00:00:00 Turner Protein, Pf, 100 Mcg/0.5ml,IM Covid-19 Vaccine 2020-07-22 Completed Karly callawaybold (Moderna), Mrna-lnp, 00:00:00 Turner Protein, Pf, 100 Mcg/0.5ml,IM Covid-19 Vaccine 2020-07-22 Completed Karly Tavarez eybold (Moderna), Mrna-lnp, 00:00:00 Turner Protein, Pf, 100 Mcg/0.5ml,IM Covid-19 Vaccine 2020-07-22 Completed Karly Tavarez eybold (Moderna), Mrna-lnp, 00:00:00 Turner Protein, Pf, 100 Mcg/0.5ml,IM Covid-19 Vaccine 2020-07-22 Completed Karly S eybold (Moderna), Mrna-lnp, 00:00:00 Turner Protein, Pf, 100 Mcg/0.5ml,IM Covid-19 Vaccine 2020-07-22 Completed Karly martin Moderna (Spikevax), 00:00:00 Mrna-lnp, Turner Protein, Pf Covid-19 Vaccine 2020-07-22 Completed Karly marrerold Moderna (Spikevax), 00:00:00 Mrna-lnp, Turner Protein, Pf Covid-19 Vaccine 2020-07-22 Completed Karly marrerold Moderna (Spikevax), 00:00:00 Mrna-lnp, Turner Protein, Pf Covid-19 Vaccine 2020-07-22 Completed Karly marrerold Moderna (Spikevax), 00:00:00 Mrna-lnp, Turner Protein, Pf Covid-19 Vaccine 2020-07-22 Completed Karly marrerold (Moderna), Mrna-lnp, 00:00:00 Turner Protein, Pf, 100 Mcg/0.5ml,IM Covid-19 Vaccine 2020-07-22 Completed Karly marrerold (Moderna), Mrna-lnp, 00:00:00 Turner Protein, Pf, 100 Mcg/0.5ml,IM Covid-19 Vaccine 2020-07-22 Completed Karly Tavarez eybold (Moderna), Mrna-lnp, 00:00:00 Turner Protein, Pf, 100 Mcg/0.5ml,IM Influenza Virus 2020-02-05 Completed Karly Se ybold Vaccine, age 6 00:00:00 months and up Shingles IM 2020-02-05 Completed Karly Seybol d (Shingrix) 00:00:00 Influenza Virus 2020-02-05 Completed Karly Se ybold Vaccine, age 6 00:00:00 months and up Shingles IM 2020-02-05 Completed Karly Seybol d (Shingrix) 00:00:00 Influenza Virus 2020-02-05 Completed Karly Se ybold Vaccine, age 6 00:00:00 months and up Shingles IM 2020-02-05 Completed Karly Seybol d (Shingrix) 00:00:00 Influenza Virus 2020-02-05 Completed Karly Se ybold Vaccine, age 6 00:00:00 months and up Shingles IM 2020-02-05 Completed Karly Seybol d (Shingrix) 00:00:00 Influenza Virus 2020-02-05 Completed Karly Se ybold Vaccine, age 6 00:00:00 months and up Shingles IM 2020-02-05 Completed Karly Seybol d (Shingrix) 00:00:00 Influenza Virus 2020-02-05 Completed Karly Se ybold Vaccine, age 6 00:00:00 months and up Shingles IM 2020-02-05 Completed Karly Seybol d (Shingrix) 00:00:00 Influenza Virus 2019-05-24 Completed Karly Se ybold Vaccine, age 6 00:00:00 months and up Influenza Virus 2019-05-24 Completed Karly Se ybold Vaccine, age 6 00:00:00 months and up Influenza Virus 2019-05-24 Completed Karly Se ybold Vaccine, age 6 00:00:00 months and up Influenza Virus 2019-05-24 Completed Karly Se ybold Vaccine, age 6 00:00:00 months and up Influenza Virus 2019-05-24 Completed Karly Se ybold Vaccine, age 6 00:00:00 months and up Influenza Virus 2019-05-24 Completed Karly Se ybold Vaccine, age 6 00:00:00 months and up Influenza Virus 2018-01-29 Completed Karly Se ybold Vaccine, age 6 00:00:00 months and up Influenza Virus 2018-01-29 Completed Karly Se ybold Vaccine, age 6 00:00:00 months and up Influenza Virus 2018-01-29 Completed Karly Se ybold Vaccine, age 6 00:00:00 months and up Influenza Virus 2018-01-29 Completed Karly Se ybold Vaccine, age 6 00:00:00 months and up Influenza Virus 2018-01-29 Completed Karly Se ybold Vaccine, age 6 00:00:00 months and up Influenza Virus 2018-01-29 Completed Karly Se ybold Vaccine, age 6 00:00:00 months and up Tdap- (Boostrix, 2017-07-11 Completed Karly S eybold Adacel) 00:00:00 Tdap- (Boostrix, 2017-07-11 Completed Karly S eybold Adacel) 00:00:00 Tdap- (Boostrix, 2017-07-11 Completed Karly S eybold Adacel) 00:00:00 Tdap- (Boostrix, 2017-07-11 Completed Karly S eybold Adacel) 00:00:00 Tdap- (Boostrix, 2017-07-11 Completed Karly martin Adacel) 00:00:00 Tdap- (Boostrix, 2017-07-11 Completed Karly martin Adacel) 00:00:00 Influenza Virus 2017-04-13 Completed Karly Se ybold Vaccine, age 6 00:00:00 months and up Influenza Virus 2017-04-13 Completed Karly Meek ybold Vaccine, age 6 00:00:00 months and up Influenza Virus 2017-04-13 Completed Karly Meek ybold Vaccine, age 6 00:00:00 months and up Influenza Virus 2017-04-13 Completed Karly Meek ybold Vaccine, age 6 00:00:00 months and up Influenza Virus 2017-04-13 Completed Karly Meek ybold Vaccine, age 6 00:00:00 months and up Influenza Virus 2017-04-13 Completed Karly Se ybold Vaccine, age 6 00:00:00 months and up Vital Signs Vital Name Observation Time Observation Value Comments Source Systolic blood pressure 2021-09-30 18:05:00 128 mm[Hg] Karly ybjuli Diastolic blood 2021-09-30 18:05:00 82 mm[Hg] Kelse y Seybold pressure Heart rate 2021-09-30 18:05:00 79 /min Karly martin Body temperature 2021-09-30 18:05:00 36.56 Amara Sofi Barrios Respiratory rate 2021-09-30 18:05:00 14 /min Sofi Barrios Body height 2021-09-30 18:05:00 160 cm Karly martin Body weight 2021-09-30 18:05:00 88.451 kg Karly martin BMI 2021-09-30 18:05:00 34.54 kg/m2 Karly martin Oxygen saturation in 2021-09-30 18:05:00 99 /min Karly Barrios Arterial blood by Pulse oximetry Systolic blood pressure 2021-08-31 14:25:00 150 mm[Hg] Karly ybjuli Diastolic blood 2021-08-31 14:25:00 96 mm[Hg] Kelse y Seybold pressure Heart rate 2021-08-31 14:25:00 95 /min Karly S eybold Body temperature 2021-08-31 14:25:00 36.06 Amara Sofi ey Seybold Respiratory rate 2021-08-31 14:25:00 16 /min Sofi ey Seybold Body height 2021-08-31 14:25:00 160 cm Karly S eybold Body weight 2021-08-31 14:25:00 93.895 kg Karly S eybold BMI 2021-08-31 14:25:00 36.67 kg/m2 Karly S eybold Systolic blood pressure 2021-05-31 14:12:00 138 mm[Hg] Karly Seybold Diastolic blood 2021-05-31 14:12:00 78 mm[Hg] Kelse y Seybold pressure Heart rate 2021-05-31 14:12:00 89 /min Karly S eybold Body temperature 2021-05-31 14:12:00 35.67 Amara Sofi ey Seybold Respiratory rate 2021-05-31 14:12:00 16 /min Sofi ey Seybold Body height 2021-05-31 14:12:00 160 cm Karly S eybold Body weight 2021-05-31 14:12:00 88.905 kg Karly S eybold BMI 2021-05-31 14:12:00 34.72 kg/m2 Karly S eybold Systolic blood pressure 2021-05-28 14:21:00 152 mm[Hg] Karly Seybold Diastolic blood 2021-05-28 14:21:00 94 mm[Hg] Kelse y Seybold pressure Heart rate 2021-05-28 14:21:00 97 /min Karly S eybold Body temperature 2021-05-28 14:21:00 35.39 Amara Sofi ey Seybold Respiratory rate 2021-05-28 14:21:00 16 /min Sofi ey Seybold Body height 2021-05-28 14:21:00 160 cm Karly S eybold Body weight 2021-05-28 14:21:00 88.905 kg Karly S eybold BMI 2021-05-28 14:21:00 34.72 kg/m2 Karly S eybold Systolic blood pressure 2021-03-12 20:07:00 124 mm[Hg] Karly Seybold Diastolic blood 2021-03-12 20:07:00 80 mm[Hg] Kelse y Seybold pressure Heart rate 2021-03-12 20:07:00 95 /min Karly Tavarez eybold Body temperature 2021-03-12 20:07:00 36.06 Amara Sofi ey Seybold Respiratory rate 2021-03-12 20:07:00 16 /min Sofi ey Seybold Body height 2021-03-12 20:07:00 160 cm Karly callawaybold Body weight 2021-03-12 20:07:00 89.359 kg Karly callawaybold BMI 2021-03-12 20:07:00 34.90 kg/m2 Karly callawaybold Systolic blood pressure 2021-03-12 20:07:00 124 mm[Hg] Karly Seybold Diastolic blood 2021-03-12 20:07:00 80 mm[Hg] Kelse y Seybold pressure Heart rate 2021-03-12 20:07:00 95 /min Karly callawaybogunjan Body temperature 2021-03-12 20:07:00 36.06 Amara Sofi ey Seybold Respiratory rate 2021-03-12 20:07:00 16 /min Sofi callaway Seybjuli Body height 2021-03-12 20:07:00 160 cm Karly callawaybogunjan Body weight 2021-03-12 20:07:00 89.359 kg Karly callawaybold BMI 2021-03-12 20:07:00 34.90 kg/m2 Karly martin Procedures Procedure Date / Time Performed Performing Clinician [facility] e LIPID PANEL 2021-05-31 14:59:00 Yuli Mcdaniel Encounters Start End Encounter Admission Attending Care Care Encounter Source Date/Time Date/Time Type Type Clinicians Facility Department ID 2021-06-02 Outpatient STLMLC STLMLC [id number] Common 13:57:32 [id number] [facility] 2021-06-02 Outpatient STLMLC STLMLC [id number] Common 13:42:01 [id number] [facility] 2021-06-02 Outpatient STLMLC STLMLC [id number] Common 13:36:23 [id number] [facility] 2021-10-28 2021-10-28 Outpatient JEFF KARLY RODRÍGUEZ [id number] Karly 08:30:00 08:30:00 YULI Seybol d 2021-10-07 2021-10-07 Outpatient JEFF KARLY RODRÍGUEZ [id number] Karly 00:00:00 00:00:00 YULI Seybol d 2021-09-30 2021-09-30 Office KandyManpreet palacios [id number] Karly 13:00:00 13:30:00 Visit Yuli Mata [id number] Se ybold [id number] 2021-09-30 2021-09-30 Outpatient KANDYSuzanne KARLY RODRÍGUEZ [id number] Karly 00:00:00 00:00:00 YULI Seybol d 2021-09-28 2021-09-28 Outpatient JEFF KARLY RODRÍGUEZ [id number] Karly 08:00:00 08:00:00 YULI Seybol d 2021-09-03 2021-09-03 Outpatient JEFF KARLY RODRÍGUEZ [id number] Karly 00:00:00 00:00:00 YULI Seybol d 2021-09-02 2021-09-02 Outpatient JEFF KARLY RODRÍGUEZ [id number] Karly 00:00:00 00:00:00 YULI Seybol d 2021-09-01 2021-09-01 Outpatient JEFF KARLY RODRÍGUEZ [id number] Karly 00:00:00 00:00:00 YULI Seybol d 2021-08-31 2021-08-31 Outpatient LAB90 KARLY RODRÍGUEZ [id number] Karly 10:50:00 10:50:00 Seybol d 2021-08-31 2021-08-31 Office KandyManpreet palacios [id number] Karly 09:45:00 10:15:00 Visit Yuli Mata [id number] Se ybold [id number] 2021-08-31 2021-08-31 Outpatient KARLY MCDANIEL KARLY [id number] [place] 00:00:00 00:00:00 YULI Seybol d 2021-08-31 2021-08-31 Outpatient KANDYLKARLY KARLY [id number] Karly 00:00:00 00:00:00 YULI Seybol d 2021-07-18 2021-07-18 Outpatient KANDYL KARLY RODRÍGUEZ [id number] Karly 00:00:00 00:00:00 YULI Seybol d 2021-06-28 2021-06-28 Outpatient KANDYL KARLY RODRÍGUEZ [id number] Karly 00:00:00 00:00:00 YULI Seybol d 2021-06-14 2021-06-14 Outpatient (KEZIA), KARLY RODRÍGUEZ [id number] Karly 00:00:00 00:00:00 KARLY-SEYB Se ybold JULI 2021-06-07 2021-06-07 Office ALPHONSE HART [id number] Karly 11:00:00 11:00:00 Visit MICA ALEKSANDRA [id number] Seybold DIAGNOSTI [id number] [facility] [id number] 2021-06-03 2021-06-07 Outpatient [facility] [id number] [place] 00:00:00 00:00:[address] 2021-06-03 2021-06-03 Outpatient JEFF KARLY RODRÍGUEZ [id number] Karly 00:00:00 00:00:00 YULI Seybol d 2021-06-02 2021-06-02 Outpatient JEFF KARLY RODRÍGUEZ [id number] Karly 00:00:00 00:00:00 YULI Seybol d 2021-05-31 2021-05-31 Outpatient LAB90 KARLY RODRÍGUEZ [id number] Karly 09:15:00 09:15:00 Seybol d 2021-05-31 2021-05-31 Office Manpreet Mcdaniel [id number] Karly 08:30:00 09:00:00 Visit Yuli Mata 350.1.13.13 Se ybold [id number] 2021-05-31 2021-05-31 Outpatient JEFF, KARLY RODRÍGUEZ [id number] Karly 00:00:00 00:00:00 YULI Seybol d 2021-05-28 2021-05-28 Outpatient LAB90 KARLY RODRÍGUEZ [id number] Karly 09:40:00 09:40:00 Seybol d 2021-05-28 2021-05-28 Office Manpreet Mcdaniel [id number] Karly 08:30:00 09:00:00 Visit Yuli Mata [id number] Se ybold [id number] 2021-05-20 2021-05-20 Outpatient HART, KARLY RODRÍGUEZ [id number] Karly 08:40:00 08:40:00 MICA Seybo ld 2021-05-04 2021-05-04 Outpatient HART, KARLY RODRÍGUEZ [id number] Karly 10:20:00 10:20:00 MICA Seybo ld 2021-04-05 2021-04-05 Outpatient HART, KARLY RODRÍGUEZ [id number] Karly 10:40:00 10:40:00 MICA Seybo ld 2021-04-05 2021-04-05 Outpatient HART, KARLY RODRÍGUEZ [id number] Karly 00:00:00 00:00:00 MICA Seybo ld 2021-03-29 2021-03-29 Outpatient HART, KARLY RODRÍGUEZ [id number] Karly 13:20:00 13:20:00 MICA Seybo ld 2021-03-12 2021-03-12 Office Manpreet Mcdaniel [id number] 15:06:43 15:36:43 Visit Yuli Mata [id number] 2021-03-12 2021-03-12 Office Manpreet Mcdaneil [id number] Karly 15:06:43 15:36:43 Visit Yuli Mata 350.1.13.13 Se pitts [id number] 2021-01-09 2021-01-09 Outpatient KARLY CAREY [id number] Karly 00:00:00 00:00:00 CRYSTAL Seybol d 2021-01-01 2021-01-01 Outpatient KARLY CAREY [id number] Karly 10:30:00 10:30:00 CRYSTAL Seybol d 2020-12-29 2020-12-29 Outpatient STLMLC STLMLC [id number] Common 00:00:00 00:00:00 [facility] 2020-12-16 2020-12-16 Outpatient KARLY CAREY [id number] Karly 13:30:00 13:30:00 CRYSTAL Seybol d 2020-12-15 2020-12-15 Outpatient KARLY CAREY [id number] Karly 08:30:00 08:30:00 CRYSTAL Seybol d 2020-11-18 2020-11-18 Outpatient KARLY CAREY [id number] Karly 14:15:00 14:15:00 CRYSTAL Seybol d 2020-11-17 2020-11-17 Outpatient KARLY HART [id number] Karly 00:00:00 00:00:00 MICA Championo ld 2019-11-05 2019-11-05 Outpatient R [facility] [id number] 09:20:00 09:20:[id number] [facility] Results Test Description Test Time Test Comments Results Result Comments Source LIPID PANEL 2021-06-01 14:26:00 Test Item Value Reference Range Interpretation Comme nts CHOLESTEROL, TOTAL (test code = 2093-3) 284 mg/dL 100-199 H TRIGLYCERIDES (test code = 2571-8) 156 mg/dL 0-149 H HDL CHOLESTEROL (test code = 2085-9) 57 mg/dL >39 VLDL CHOLESTEROL YAZAN (test code = 29 mg/dL 5-40 57618-5) LDL CHOL CALC (NIH) (test code = 198 mg/dL 0-99 H 92777-4) REBECCA (test code = REBECCA) [facility] results reported in Eastern Time. [facility] Clinical Information:SRC:Blood, venous*Venipunc ture ? [facility] Source of Specimen:Blood, venous*Venipunc Lab Interpretation (test code = 99712-3) Abnormal Karly Barrios
[2021-10-09] MEDS ORDERED: KETOROLAC 30 MG/ML INJ ONE (20:55)
--- NOTE | 2021-10-09 21:05 | RAD REPORT ---
EXAM DESCRIPTION: RAD - Ankle Right 3 View - 10/09/2021 8:52 pm CLINICAL HISTORY: Right ankle pain FINDINGS: No fracture or dislocation is seen.
--- NOTE | 2021-10-09 21:06 | RAD REPORT ---
EXAM DESCRIPTION: RAD - Foot Right 3 View - 10/09/2021 8:52 pm CLINICAL HISTORY: Right foot pain status post injury FINDINGS: No fracture or dislocation is seen
--- NOTE | 2021-10-09 22:10 | EDPHYS ---
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 - Social history:: Smoking status: Patient denies any tobacco usage or history of. Vital Signs: 19:16 BP 151 / 99; Pulse 84; Resp 19; Temp 97.4(TE); Pulse Ox 100% on R/A; Weight 86.18 kg; kd3 Height 5 ft. 3 in. (160.02 cm); Pain 6/10; 20:56 BP 133 / 97; Pulse 82; Resp 17; Pulse Ox 100% on R/A; kd3 22:08 BP 132 / 91; Pulse 81; Resp 18; Pulse Ox 99% on R/A; kd3 19:16 Body Mass Index 33.66 (86.18 kg, 160.02 cm) kd3 MDM: 19:25 Patient medically screened. [facility] 22:08 Data reviewed: vital signs, nurses notes. Counseling: I had a detailed discussion with vitaly the patient and/or guardian regarding: the historical points, exam findings, and any diagnostic results supporting the discharge/admit diagnosis, radiology results, the need for outpatient follow up, to return to the emergency department if symptoms worsen or persist or if there are any questions or concerns that arise at home. 10/09 19:24 Order name: XRAY Foot RIGHT 3 View; Complete Time: 21:08 kd3 10/09 19:34 Order name: Ankle Right 3 View XRAY; Complete Time: 21:08 [facility] 10/09 21:40 Order name: Claudio wrap-joint; Complete Time: 21:57 [facility] 10/09 21:40 Order name: Crutches; Complete Time: 21:57 [facility] Administered Medications: 20:55 Drug: Ketorolac 60 mg Route: IM; Site: right ventrogluteal; kd3 22:30 Follow up: Response: No adverse reaction; Pain is decreased kd3 Disposition: 10/10 06:59 Co-signature as Attending Physician, Buster Crisostomo DO I was immediately available on-site ms3 in the Emergency Department for consultation in the care of the patient.. Disposition Summary: 10/09/21 22:09 Discharge Ordered Location: Home [facility] Condition: Stable [facility] Diagnosis - Other sprain of right foot [facility] Followup: [facility] - With: Goran Calderón DPM - When: 2 - 3 days - Reason: Recheck today's complaints, Continuance of care, Re-evaluation by your physician Discharge Instructions: - Discharge Summary Sheet [facility] - Foot Sprain [facility] Forms: - Medication Reconciliation Form [facility] - Work release form [facility] - Thank You Letter [facility] - Antibiotic Education [facility] - Prescription Opioid Use [facility] Prescriptions: - Diclofenac Sodium 75 mg Oral Tablet Sustained Release - take 1 tablet by ORAL route 2 times per day; 30 tablet; Refills: 0, Product [facility] Selection Permitted - orphenadrine citrate 100 mg Oral Tablet Sustained Release - take 1 tablet by ORAL route 2 times per day As needed; 20 tablet; Refills: 0, [facility] Product Selection Permitted Signatures: Dispatcher [employer] Guilherme Garcia PA PA jmm Sims, Marcus, DO DO ms3 Susana Lua, RN RN kd3
--- NOTE | 2021-10-09 22:10 | ER ---
Nurse's Notes [facility] Name: Shirley Tariq Age: 51 yrs Sex: Female : 1970 Arrival Date: 10/09/2021 Time: 19:11 Bed 12 Private MD: Diagnosis: Other sprain of right foot Presentation: 10/09 19:16 Chief complaint: Patient states: last week I hurt my foot when I was walking to my kd3 shed. I was running and I hit my foot on a tree root. now it looks swollen and it hurts very bad. its throbbing. Coronavirus screen: Vaccine status: Patient reports receiving the 2nd dose of the covid vaccine. Ebola Screen: No symptoms or risks identified at this time. Initial Sepsis Screen: Does the patient meet any 2 criteria? No. Patient's initial sepsis screen is negative. Does the patient have a suspected source of infection? No. Patient's initial sepsis screen is negative. Risk Assessment: Do you want to hurt yourself or someone else? Patient reports no desire to harm self or others. Onset of symptoms was October 29, 2021. 19:16 Method Of Arrival: Ambulatory kd3 19:16 Acuity: BRIAN 3 kd3 Triage Assessment: 19:20 General: Appears in no apparent distress. Behavior is calm, cooperative. Pain: kd3 Complains of pain in right foot. Musculoskeletal: Circulation, motion, and sensation intact. Injury Description: Bruise sustained to right foot. 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 - Social history:: Smoking status: Patient denies any tobacco usage or history of. Screenin:23 Abuse screen: Denies threats or abuse. Denies injuries from another. Nutritional kd3 screening: No deficits noted. Tuberculosis screening: No symptoms or risk factors identified. Fall Risk Gait- Normal/Bed Rest/Wheelchair (0 pts). Assessment: 20:56 Reassessment: Patient and/or family updated on plan of care and expected duration. Pain kd3 level reassessed. Patient is alert, oriented x 3, equal unlabored respirations, skin warm/dry/pink. Neuro: Level of Consciousness is awake, alert, obeys commands, Oriented to person, place, time, situation. Cardiovascular: Patient's skin is warm and dry. Respiratory: Airway is patent Trachea midline Respiratory effort is even, unlabored, Respiratory pattern is regular. 22:07 Reassessment: Patient and/or family updated on plan of care and expected duration. Pain kd3 level reassessed. Patient is alert, oriented x 3, equal unlabored respirations, skin warm/dry/pink. Patient states feeling better. Vital Signs: 19:16 BP 151 / 99; Pulse 84; Resp 19; Temp 97.4(TE); Pulse Ox 100% on R/A; Weight 86.18 kg; kd3 Height 5 ft. 3 in. (160.02 cm); Pain 6/10; 20:56 BP 133 / 97; Pulse 82; Resp 17; Pulse Ox 100% on R/A; kd3 22:08 BP 132 / 91; Pulse 81; Resp 18; Pulse Ox 99% on R/A; kd3 19:16 Body Mass Index 33.66 (86.18 kg, 160.02 cm) kd3 ED Course: 19:11 Patient arrived in ED. jj6 19:12 Guilherme Santos PA is PHCP. [facility] 19:12 Buster Crisostomo DO is Attending Physician. [facility] 19:20 Triage completed. kd3 19:20 Arm band placed on right wrist. kd3 19:23 Susana Lua, RN is Primary Nurse. kd3 19:23 Patient has correct armband on for positive identification. kd3 20:54 XRAY Foot RIGHT 3 View In Process Unspecified. EDMS 20:54 Ankle Right 3 View XRAY In Process Unspecified. EDMS 20:56 No provider procedures requiring assistance completed. kd3 22:07 Patient did not have IV access during this emergency room visit. kd3 22:09 Goran Calderón DPM is Referral Physician. vitaly Administered Medications: 20:55 Drug: Ketorolac 60 mg Route: IM; Site: right ventrogluteal; kd3 22:30 Follow up: Response: No adverse reaction; Pain is decreased kd3 Medication: 19:23 VIS not applicable for this client. kd3 Outcome: 22:07 Discharged to home ambulatory. kd3 22:07 Condition: stable 22:07 Discharge instructions given to patient, Instructed on discharge instructions, follow up and referral plans. Demonstrated understanding of instructions, follow-up care. 22:09 Discharge ordered by . vitaly 22:29 Patient left the ED. kd3 Signatures: Dispatcher [employer] EDMS Guilherme Santos PA PA jmm Jeffries, Jennifer jj6 Doucette, Kyli, RN RN kd3
[2021-10-09 22:49] VITALS: TEMP 97.4
[2021-10-09 22:53] VITALS: BP 132/91; O2SAT 99
== END 2021-10-09 22:29 | disposition home or self-care (01) ==
LOC: ER 19:09
DX: S93.691A Other sprain of right foot, initial encounter (principal); I10 Essential (primary) hypertension; E78.5 Hyperlipidemia, unspecified
CPT/HCPCS: 96372; 99283

== ENCOUNTER 2022-10-10 17:21 | Emergency (ER) | payer BC ==
--- OUTSIDE RECORDS SUMMARY | 2022-10-10 17:28 | XMS REPORT | Continuity of Care Document ---
:1970 Author Organization [facility] t Address [address] [facility] [address] [place] [address] Care Team Providers Name Role Phone Yuli Aguilar Primary Care Physician FRANKO PLUMMER Attending Clinician Unavailable YULI AGUILAR Attending Clinician Unavailable Vandana Scott MD Attending Clinician VANDANA SCOTT Attending Clinician Unavailable MICA HART Attending Clinician Unavailable LAB90 Attending Clinician Unavailable Tyrell Rivas Attending Clinician TYRELL STANLEY Attending Clinician Unavailable KATELYN EWING II Attending Clinician Unavailable Doctor Unassigned, Hi-Nella Attending Clinician Unavailable EMMA SCHULTE Attending Clinician Unavailable ELENA BARRIENTOS Attending Clinician Unavailable LEON LATHAM Attending Clinician Unavailable JOE MC Attending Clinician Unavailable Jeff CHAVES-Yuli Hall Attending Clinician Elena Barrientos DO Attending Clinician (KEZIA), [facility] Attending Clinician UnavailCRYSTAL Rao Attending Clinician Unavailable VANDANA SCOTT Admitting Clinician Unavailable TYRELL STANLEY Admitting Clinician Unavailable Payers Payer Name Policy Type Policy Number Effective Date Expiration Date Zander pascual BCBS 2 [id number] 2017 00:00:00 [employer] C1 [id number] Common Spiri t [facility] Problems Condition Condition Condition Status Onset Resolution Last Treating Co mments Source Name Details Category Date Date Treatment Clinician Date Submucous Submucous Disease Active Uni vers leiomyoma leiomyoma 4-27 [place] Mass of Mass of Disease Active Univers upper upper 3-20 ity of outer outer 00:00: [place] quadrant quadrant 00 Medica l of right of right Branch breast breast Pain Pain Disease Active Univers pelvic pelvic 3-20 ity of 00:00: [place] 00 [facility] Branch Breast Breast Disease Active Univers pain, pain, 3-20 ity of right right 00:00: [place] 00 Medical Branch SARS-CoV-2 SARS-CoV-2 Disease Active K elsey positive positive 7-15 Seybol d 00:00: - 00 Externa l Prediabete Prediabete Disease Active K elseoz s s 05-28 Seybold 00:00: - 00 Externa l LPRD LPRD Disease Active Karly (laryngoph (laryngoph 05-28 Se ybold aryngeal aryngeal 00:00: - reflux reflux 00 Externa disease) disease) l Leukopenia Leukopenia Disease Active K jarrod - Seybold 00:00: - 00 Externa l Contracept Contracept Disease Active U diana dolores dolores 3-06 ity of management management 00[place] [facility] Obesity Obesity Disease Active Univers (BMI (BMI 3-06 ity of 30-39.9) 30-39.9) 00:00: Medical Branch History of History of Disease Active U nivers tubal tubal 3-06 ity of ligation ligation 00:: Medical Branch History of History of Disease Active Overview : Univers cervical cervical 3-20 Formattin ity of dysplasia dysplasia 00:00: [place] this [place] 00 note Medical might be Branch different from the original. 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 [id number] Lateral Problem Active Comm on epicondyli Spirit tis of - [facility] left elbow [facility] No known No known Disease Kelse y active active Seybold problems problems AR AR Disease Active Karly (allergic (allergic Seyb old rhinitis) rhinitis) - Externa l Fatty Fatty Disease Active Karly liver liver Seybold - Externa l HTN HTN Disease Active Karly (hypertens (hypertens Se ybold ion) ion) - Externa l Hyperlipid Hyperlipid Disease Active K elsey emia emia Seybold - Externa l Metabolic Metabolic Disease Active Neville sey syndrome syndrome Seybol d - Externa l Vitamin D Vitamin D Disease Active Neville sey deficiency deficiency Se ybold - Externa l Allergies, Adverse Reactions, Alerts Allergy Allergy Status Severity Reaction(s) Onset Inactive Treating Comm ents Source Name Type Date Date Clinician Claudio Propensi Active Cough Karly Inhibito ty to 4-08 Seybold rs adverse 00:00: reaction 00 s Claudio Propensi Active Cough Karly Inhibito ty to 4-08 Seybold rs adverse 00:00: - reaction 00 Externa s l CLAUDIO Drug Active Med COUGH Univers INHIBITO Class 4-08 ity of RS 00:00: Medical Branch Claudio Propensi Active Cough Univers Inhibito ty to 4-08 ity of rs adverse 00:00: [place] reaction 00 Medical s Branch NO KNOWN Drug Active Univers ALLERGIE Class ity of S [facility] Social History Social Habit Start Date Stop Date Quantity Comments Source History of Common Spirit - Tobacco Use [facility] Exposure to 2022-08-22 2022-09-01 Not sure [facility] SARS-CoV-2 00:00:00 16:19:00 [facility] (event) Branch Alcohol intake 2022-09-01 2022-09-01 Ex-drinker University 00:00:00 00:00:00 (finding) [facility] Tobacco use and 2022-07-25 2022-07-25 Smokeless tobacco Un iversity of exposure 00:00:00 00:00:00 non-user [facility] Alcohol Comment 2017-07-11 2017-07-11 social Universit y of 00:00:00 00:00:00 [facility] Sex Ass[birth year] At [birth year] Universit y of 00:00:00 00:00:00 [facility] Smoking Status Start Date Stop Date Source Never smoked tobacco [facility] Medications Ordered Filled Start Stop Current Ordering Indication Dosage Frequency Signature Comments Components Source Medication Medication Date Date Medication? Clinician (SIG) Name Name ketorolac 2022- No 30mg 30 mg, Unive rs (TORADOL) 08-07 Slow IV ity of injection 01:45: 00:42 [place], [place] 30 mg 00 :00 ONCE, 1 Medical dose, On Branch 08/06/22 at 2045, JACOBY iopamidol 2022- No [id number] 84mL 84 mL, U nivers (ISOVUE 08-06 Intravenou ity o f 370-500 mL) 22:15: 22:30 s, ONCE, 1 [place] injection 00 :00 dose, On Medica l 84 mL 08/06/22 Branch at 1730, Routine MOUNJARO Yes Univers 7.5 mg/0.5 3-09 ity of mL PnIj 00:00: [facility] MOUNJARO Yes Univers 7.5 mg/0.5 3-09 ity of mL PnIj 00:00: [facility] MOUNJARO Yes Univers 7.5 mg/0.5 3-09 ity of mL PnIj 00:00: [facility] MOUNJARO Yes Univers 7.5 mg/0.5 3-09 ity of mL PnIj 00:00: [place] 00 Medical Branch MOUNJARO 2023-0 Yes Univers 7.5 mg/0.5 3-09 ity of mL PnIj 00:00: [place] [facility] MOUNJARO 2023-0 Yes Univers 7.5 mg/0.5 3-09 ity of mL PnIj 00:00: [place] [facility] MOUNJARO 2023-0 Yes Univers 7.5 mg/0.5 3-09 ity of mL PnIj 00:00: [place] [facility] MOUNJARO 2023-0 Yes Univers 7.5 mg/0.5 3-09 ity of mL PnIj 00:00: [place] [facility] MOUNJARO 2023-0 Yes Univers 7.5 mg/0.5 3-09 ity of mL PnIj 00:00: [place] [facility] MOUNJARO 2023-0 Yes Univers 7.5 mg/0.5 3-09 ity of mL PnIj 00:00: [place] [facility] MOUNJARO 2023-0 Yes Univers 7.5 mg/0.5 3-09 ity of mL PnIj 00:00: [place] [facility] hydroCHLORO 2023-0 Yes Univer s thiazide 25 3-08 ity of mg tablet 00:00: [place] Medical [facility] hydroCHLORO 2023-0 Yes Univer s thiazide 25 3-08 ity of mg tablet 00:00: [place] [address] Medical Branch hydroCHLORO 2023-0 Yes Univer s thiazide 25 3-08 ity of mg tablet 00:00: [place] [facility] hydroCHLORO 2023-0 Yes Univer s thiazide 25 3-08 ity of mg tablet 00:00: [place] [address] Medical Branch hydroCHLORO 2023-0 Yes Univer s thiazide 25 3-08 ity of mg tablet 00:00: [place] [address] Medical Branch hydroCHLORO 2023-0 Yes Univer s thiazide 25 3-08 ity of mg tablet 00:00: [place] [address] Medical Branch hydroCHLORO 2023-0 Yes Univer s thiazide 25 3-08 ity of mg tablet 00:00: [place] [address] Medical Branch hydroCHLORO 2023-0 Yes Univer s thiazide 25 3-08 ity of mg tablet 00:00: [place] [address] Medical Branch hydroCHLORO 2023-0 Yes Univer s thiazide 25 3-08 ity of mg tablet 00:00: [place] [facility] hydroCHLORO 2022-0 Yes Univer s thiazide 25 3-08 ity of mg tablet 00:00: [place] [facility] hydroCHLORO 2022-0 Yes Univer s thiazide 25 3-08 ity of mg tablet 00:00: [address] Branch hydroCHLORO 2022-0 Yes [id number] 25mg Take 1 Karly thiazide 25 3-08 tablet (25 Se ybold MG oral 00:00: mg total) - Tablet 00 by mouth Externa daily l Omeprazole 0 Yes [id number] 40mg Take 1 Karly 40 MG oral 3-08 capsule Seybol d Delayed 00:00: (40 mg - Release 00 total) by Externa Capsule mouth l daily Doxycycline 0 Yes [id number] 100mg Take 1 Karly Hyclate 100 2-22 tablet Seybol d MG oral 00:00: (100 mg - Tablet 00 total) by Externa mouth 2 l times daily Clindamycin Yes [id number] Apply to Karly Phosphate 2-22 area 4 Seybold (Clindagel) 00:00: times - 1 % apply 00 daily for Exter na externally 10 days l Gel Losartan 0 Yes [id number] 25mg Take 1 Neville sey Potassium 2-22 tablet (25 Seyb old 25 MG oral 00:00: mg total) - Tablet 00 by mouth Externa daily l Losartan 0 Yes [id number] 25mg Take 1 Neville sey Potassium 2-22 tablet (25 Seyb old 25 MG oral 00:00: mg total) - Tablet 00 by mouth Externa daily l Doxycycline 0 2022- No [id number] 100mg Take 1 Karly Hyclate 100 2-22 03-08 tablet Seybo ld MG oral 00:00: 00:00 (100 mg - Tablet 00 :00 total) by Externa mouth 2 l times daily Clindamycin 0 2022- No [id number] Apply to Karly Phosphate 2-22 03-08 area 4 Seybold (Clindagel) 00:00: 00:00 times - 1 % apply 00 :00 daily for Exter na externally 10 days l Gel Fluconazole 0 2022- No [id number] 150mg Take 1 Karly 150 MG oral 2-27 07- tablet Seybo ld Tablet 00:00: 00:00 (150 mg - 00 :00 total) by Externa mouth once l for 1 dose Fluconazole 2022-0 2022- No Kelse y 150 MG oral 2-27 07- Seybold Tablet 00:00: 00:00 - 00 :00 Externa l Fluconazole 2022-0 3- No [id number] 150mg Take 1 Karly 150 MG oral 2-29 06- tablet Seybo ld Tablet 00:00: 05:59 (150 mg - 00 :00 total) by Externa mouth once l for 1 dose Phentermine 2022-0 Yes [id number] 37.5mg Take 1 Karly HCl 37.5 MG 2-03 tablet Seybol d oral Tablet 00:00: (37.5 mg - 00 total) by Externa mouth l every morning (before breakfast) Phentermine 2022-0 Yes [id number] 37.5mg Take 1 Karly HCl 37.5 MG 2-03 tablet Seybol d oral Tablet 00:00: (37.5 mg - 00 total) by Externa mouth l every morning (before breakfast) Tirzepatide 2022-0 Yes 7.5mg Inject 0.5 Karly (Mounjaro) 2-02 mL (7.5 mg Sey bold 7.5 00:00: total) - MG/0.5ML 00 into the Externa subcutaneou skin once l s Solution a week Pen-injecto r Tirzepatide 2022-0 Yes 7.5mg Inject 0.5 Karly (Mounjaro) 2-02 mL (7.5 mg Sey bold 7.5 00:00: total) - MG/0.5ML 00 into the Externa subcutaneou skin once l s Solution a week Pen-injecto r Nystatin-Tr 2022-0 Yes [id number] Apply BID Karly iamcinolone 1-24 for 7 Seybold [id number] 00:00: days. - UNIT/GM-% 00 Externa apply l externally Cream Nystatin-Tr 2022-0 Yes [id number] Apply BID Karly iamcinolone 1-24 for 7 Seybold [id number] 00:00: days. - UNIT/GM-% 00 Externa apply l externally Cream Nystatin-Tr 2022-0 3- No [id number] Apply BID Karly aguirreinolone 05-31-08 for 7 Seybol d [id number] 00:00: 00:00 days. - UNIT/GM-% 00 :00 Externa apply l externally Cream metformin 2022-0 Yes Univers ER 500 mg 1-16 ity of 24 hr 00:00: [place] tablet [facility] metformin 3-0 Yes Univers ER 500 mg 1-16 ity of 24 hr 00:00: [place] tablet [facility] metformin 3-0 Yes Univers ER 500 mg 1-16 ity of 24 hr 00:00: [place] tablet [facility] metformin 3-0 Yes Univers ER 500 mg 1-16 ity of 24 hr 00:00: [place] tablet [facility] metformin 3-0 Yes Univers ER 500 mg 1-16 ity of 24 hr 00:00: [place] tablet [facility] metformin 3-0 Yes Univers ER 500 mg 1-16 ity of 24 hr 00:00: [place] tablet [facility] metformin 3-0 Yes Univers ER 500 mg 1-16 ity of 24 hr 00:00: [place] tablet [facility] metformin 3-0 Yes Univers ER 500 mg 1-16 ity of 24 hr 00:00: [place] tablet [facility] metformin 3-0 Yes Univers ER 500 mg 1-16 ity of 24 hr 00:00: [place] tablet 00 [facility] metformin 3-0 Yes Univers ER 500 mg 1-16 ity of 24 hr 00:00: [place] tablet [facility] metformin 3-0 Yes Univers ER 500 mg 1-16 ity of 24 hr 00:00: [place] tablet 00 [facility] ergocalcife 3-0 Yes TAKE 1 Univ ers rol, 1-13 CAPSULE BY ity of vitamin d2, 00:00: MOUTH 1 Nicolas as 1,250 mcg 00 TIME A Medical (50,000 WEEK Branch unit) capsule ergocalcife 3-0 Yes TAKE 1 Univ ers rol, 1-13 CAPSULE BY ity of vitamin d2, 00:00: MOUTH 1 Nicolas as 1,250 mcg 00 TIME A Medical (50,000 WEEK Branch unit) capsule ergocalcife 2022-0 Yes TAKE 1 Univ ers rol, 1-13 CAPSULE BY ity of vitamin d2, 00:00: MOUTH 1 Nicolas as 1,250 mcg 00 TIME A Medical (50,000 WEEK Branch unit) capsule ergocalcife 3-0 Yes TAKE 1 Univ ers rol, 1-13 CAPSULE BY ity of vitamin d2, 00:00: MOUTH 1 Nicolas as 1,250 mcg 00 TIME A Medical (50,000 WEEK Branch unit) capsule ergocalcife 3-0 Yes TAKE 1 Univ ers rol, 1-13 CAPSULE BY ity of vitamin d2, 00:00: MOUTH 1 Nicolas as 1,250 mcg 00 TIME A Medical (50,000 WEEK Branch unit) capsule ergocalcife 3-0 Yes TAKE 1 Univ ers rol, 1-13 CAPSULE BY ity of vitamin d2, 00:00: MOUTH 1 Nicolas as 1,250 mcg 00 TIME A Medical (50,000 WEEK Branch unit) capsule ergocalcife 3-0 Yes TAKE 1 Univ ers rol, 1-13 CAPSULE BY ity of vitamin d2, 00:00: MOUTH 1 Nicolas as 1,250 mcg 00 TIME A Medical (50,000 WEEK Branch unit) capsule ergocalcife 3-0 Yes TAKE 1 Univ ers rol, 1-13 CAPSULE BY ity of vitamin d2, 00:00: MOUTH 1 Nicolas as 1,250 mcg 00 TIME A Medical (50,000 WEEK Branch unit) capsule ergocalcife 3-0 Yes TAKE 1 Univ ers rol, 1-13 CAPSULE BY ity of vitamin d2, 00:00: MOUTH 1 Nicolas as 1,250 mcg 00 TIME A Medical (50,000 WEEK Branch unit) capsule ergocalcife 3-0 Yes TAKE 1 Univ ers rol, 1-13 CAPSULE BY ity of vitamin d2, 00:00: MOUTH 1 Nicolas as 1,250 mcg 00 TIME A Medical (50,000 WEEK Branch unit) capsule ergocalcife 2023-0 Yes TAKE 1 Univ ers rol, 1-13 CAPSULE BY ity of vitamin d2, 00:00: MOUTH 1 [place] as 1,250 mcg 00 TIME A Medical (50,000 WEEK Branch unit) capsule Vitamin D, 2022-0 Yes [id number] TAKE 1 K elsey Ergocalcife 1-13 CAPSULE BY Se ybold rol, 1.25 00:00: MOUTH 1 - MG (24850 00 TIME A Externa UT) oral WEEK l Capsule Vitamin D, 2022-0 Yes [id number] TAKE 1 K elsey Ergocalcife 1-13 CAPSULE BY Se gisselle rol, 1.25 00:00: MOUTH 1 - MG ( 00 TIME A Externa UT) oral WEEK l Capsule Vitamin D, 2022-0 Yes [id number] TAKE 1 K elsey Ergocalcife 1-13 CAPSULE BY Se gisselle rol, 1.25 00:00: MOUTH 1 - MG ( 00 TIME A Externa UT) oral WEEK l Capsule omeprazole 2022-0 Yes Univers 40 mg 1-11 ity of capsule 00:00: [place] [facility] omeprazole 2022-0 Yes Univers 40 mg 1-11 ity of capsule 00:00: [place] [address] Medical Branch omeprazole 3-0 Yes Univers 40 mg 1-11 ity of capsule 00:00: [place] [address] Medical Branch omeprazole 3-0 Yes Univers 40 mg 1-11 ity of capsule 00:00: [place] [address] Medical Branch omeprazole 3-0 Yes Univers 40 mg 1-11 ity of capsule 00:00: [place] [address] Medical Branch omeprazole 3-0 Yes Univers 40 mg 1-11 ity of capsule 00:00: [place] [address] Medical Branch omeprazole 3-0 Yes Univers 40 mg 1-11 ity of capsule 00:00: [place] [address] Medical Branch omeprazole 3-0 Yes Univers 40 mg 1-11 ity of capsule 00:00: [place] [address] Medical Branch omeprazole 3-0 Yes Univers 40 mg 1-11 ity of capsule 00:00: [place] [address] Medical Branch omeprazole 3-0 Yes Univers 40 mg 1-11 ity of capsule 00:00: [place] [address] Medical Branch omeprazole 3-0 Yes Univers 40 mg 1-11 ity of capsule 00:00: [place] [address] Medical Branch Omeprazole 3-0 Yes [id number] TAKE 1 Karly 40 MG oral 1-11 CAPSULE(40 Sey bold Delayed 00:00: MG) BY - Release 00 MOUTH Externa Capsule DAILY l Omeprazole 3-0 Yes [id number] TAKE 1 Karly 40 MG oral 1-11 CAPSULE(40 Sey bold Delayed 00:00: MG) BY - Release 00 MOUTH Externa Capsule DAILY l Omeprazole 3-0 3- No [id number] TAKE 1 Karly 40 MG oral 1-11 03-08 CAPSULE(40 Se ybold Delayed 00:00: 00:00 MG) BY - Release 00 :00 MOUTH Externa Capsule DAILY l Tirzepatide Yes 7.5mg Inject 0.5 Karly (Mounjaro) 1-10 mL (7.5 mg Sey bold 7.5 00:00: total) - MG/0.5ML 00 into the Externa subcutaneou skin once l s Solution a week Pen-injecto r Metformin Yes [id number] TAKE 1 K elsey HCl ER 500 1-03 TABLET(500 Sey bold MG oral 00:00: MG) BY - TABLET SR 00 MOUTH Externa 24 HR TWICE l DAILY Metformin Yes [id number] TAKE 1 K elsey HCl ER 500 1-03 TABLET(500 Sey bold MG oral 00:00: MG) BY - TABLET SR 00 MOUTH Externa 24 HR TWICE l DAILY Metformin Yes [id number] TAKE 1 K elsey HCl ER 500 1-03 TABLET(500 Sey bold MG oral 00:00: MG) BY - TABLET SR 00 MOUTH Externa 24 HR TWICE l DAILY Metformin Yes [id number] TAKE 1 K elsey HCl ER 500 1-03 TABLET(500 Sey bold MG oral 00:00: MG) BY - TABLET SR 00 MOUTH Externa 24 HR TWICE l DAILY Mounjaro 10 2021-05 Yes [id number] 10mg INJECT 0.5 Karly MG/0.5ML 2-23 ML (10 MG Seybol d subcutaneou 00:00: TOTAL) - s Solution 00 INTO THE Exter na Pen-injecto SKIN ONCE l r A WEEK Phentermine 2021-05 Yes [id number] 37.5mg Take 1 Karly HCl 37.5 MG 2-21 tablet Seybol d oral Tablet 00:00: (37.5 mg - 00 total) by Externa mouth l every morning (before breakfast) Phentermine 2021-05 Yes [id number] 37.5mg Take 1 Karly HCl 37.5 MG 2-21 tablet Seybol d oral Tablet 00:00: (37.5 mg - 00 total) by Externa mouth l every morning (before breakfast) Rosuvastati 2021-05 Yes [id number] TAKE 1 Karly n Calcium 2-20 TABLET(20 Seybo ld 20 MG oral 00:00: MG) BY - Tablet 00 MOUTH Externa DAILY l Rosuvastati 2021-05- No [id number] TAKE 1 Karly n Calcium 2-20 -24 TABLET(20 Seyb old 20 MG oral 00:00: 00:00 MG) BY - Tablet 00 :00 MOUTH Externa DAILY l Omeprazole 2021-05 Yes [id number] 40mg Take 1 Karly 40 MG oral 2-19 capsule Seybol d Delayed 00:00: (40 mg - Release 00 total) by Externa Capsule mouth l daily Omeprazole 2021-05 Yes [id number] 40mg Take 1 Karly 40 MG oral 2-19 capsule Seybol d Delayed 00:00: (40 mg - Release 00 total) by Externa Capsule mouth l daily Tirzepatide 2021-05 Yes [id number] 10mg Inject 0.5 Karly (Mounjaro) 2-12 mL (10 mg Seyb old 10 MG/0.5ML 00:00: total) - subcutaneou 00 into the Exte rna s Solution skin once l Pen-injecto a week r Phentermine 2021-05 Yes [id number] 37.5mg Take 1 Karly HCl 37.5 MG 1-01 tablet Seybol d oral Tablet 00:00: (37.5 mg - 00 total) by Externa mouth l every morning (before breakfast) Phentermine 2021-05 Yes [id number] 37.5mg Take 1 Karly HCl 37.5 MG 1-01 tablet Seybol d oral Tablet 00:00: (37.5 mg - 00 total) by Externa mouth l every morning (before breakfast) Tirzepatide 2021-05 Yes [id number] 7.5mg Inject 0.5 Karly (Mounjaro) 0-18 mL (7.5 mg Sey bold 7.5 00:00: total) - MG/0.5ML 00 into the Externa subcutaneou skin once l s Solution a week Pen-injecto r Rosuvastati 2021-05 Yes [id number] 40mg Take 1 Karly n Calcium 0-18 tablet (40 Seyb old 40 MG oral 00:00: mg total) - Tablet 00 by mouth Externa daily l Ibuprofen-F 2021-05 Yes [id number] 1{tbl} Q.5D Take 1 Karly amotidine 0-18 tablet by Seybo ld 800-26.6 MG 00:00: mouth 2 - oral Tablet 00 times Externa daily as l needed Rosuvastati 2021-05 Yes [id number] 40mg Take 1 Karly n Calcium 0-18 tablet (40 Seyb old 40 MG oral 00:00: mg total) - Tablet 00 by mouth Externa daily l Ibuprofen-F 2021-05 Yes [id number] 1{tbl} Q.5D Take 1 Karly amotidine 0-18 tablet by Seybo ld 800-26.6 MG 00:00: mouth 2 - oral Tablet 00 times Externa daily as l needed Ibuprofen-F 2021-05 Yes [id number] 1{tbl} Q.5D Take 1 Karly amotidine 0-18 tablet by Seybo ld 800-26.6 MG 00:00: mouth 2 - oral Tablet 00 times Externa daily as l needed Ibuprofen-F 2021-05 Yes [id number] 1{tbl} Q.5D Take 1 Karly amotidine 0-18 tablet by Seybo ld 800-26.6 MG 00:00: mouth 2 - oral Tablet 00 times Externa daily as l needed Ibuprofen-F 2021-05 Yes [id number] 1{tbl} Q.5D Take 1 Karly amotidine 0-18 tablet by Seybo ld 800-26.6 MG 00:00: mouth 2 - oral Tablet 00 times Externa daily as l needed Ibuprofen-F 2021-05 Yes [id number] 1{tbl} Q.5D Take 1 Karly amotidine 0-18 tablet by Seybo ld 800-26.6 MG 00:00: mouth 2 - oral Tablet 00 times Externa daily as l needed Tirzepatide Yes [id number] 5mg Inject 0.5 Karly (Mounjaro) 9-22 mL (5 mg Seybo ld 5 MG/0.5ML 00:00: total) - subcutaneou 00 into the Exte rna s Solution skin once l Pen-injecto a week r Phentermine Yes [id number] 37.5mg Take 1 Karly HCl 37.5 MG 9-22 tablet Seybol d oral Tablet 00:00: (37.5 mg - 00 total) by Externa mouth l every morning (before breakfast) Phentermine 2021- No [id number] 37.5mg Take 1 Karly HCl 37.5 MG 01-27 tablet Seybo ld oral Tablet 00:00: 00:00 (37.5 mg - 00 :00 total) by Externa mouth l every morning (before breakfast) Vitamin D, Yes [id number] TAKE 1 K elsey Ergocalcife 9-09 CAPSULE BY Se gisselle davey, 1.25 00:00: MOUTH 1 - MG ( TIME A Externa UT) oral WEEK l Capsule Vitamin D, Yes [id number] TAKE 1 K elsey Ergocalcife 9-09 CAPSULE BY Se gisselle davey, 1.25 00:00: MOUTH 1 - MG ( TIME A Externa UT) oral WEEK l Capsule Vitamin D, Yes [id number] TAKE 1 K elsey Ergocalcife - CAPSULE BY Se gisselle davey, 1.25 00:00: MOUTH 1 - MG ( TIME A Externa UT) oral WEEK l Capsule Vitamin D, Yes [id number] TAKE 1 K elsey Ergocalcife 9-09 CAPSULE BY Se gisselle davey, 1.25 00:00: MOUTH 1 - MG ( TIME A Externa UT) oral WEEK l Capsule Omeprazole Yes [id number] TAKE 1 K elsey 40 MG oral - CAPSULE(40 Sey bold Delayed 00:00: MG) BY - Release 00 MOUTH Externa Capsule DAILY l Omeprazole Yes [id number] TAKE 1 K elsey 40 MG oral 9-06 CAPSULE(40 Sey bold Delayed 00:00: MG) BY - Release 00 MOUTH Externa Capsule DAILY l Omeprazole 2021- No [id number] TAKE 1 Karly 40 MG oral -04-25 CAPSULE(40 Se ybold Delayed 00:00: 00:00 MG) BY - Release 00 :00 MOUTH Externa Capsule DAILY l Tirzepatide 2021- No [id number] 2.5mg Inject 0.5 Karly 2.5 12-24 mL (2.5 mg Seybold MG/0.5ML 00:00: 00:00 total) - subcutaneou 00 :00 into the Exte rna s Solution skin once l Pen-injecto a week r Semaglutide 2021- No [id number] 2mg Inject 2 Karly , 2 12-23- mg into Seybold MG/DOSE, 00:00: 00:00 the skin - (Ozempic, 2 00 :00 once a [employer] a MG/DOSE,) week l subcutaneou s Phentermine 2021- No [id number] 37.5mg Take 1 Karly HCl 37.5 MG 12-13 tablet Seybo ld oral Tablet 00:00: 00:00 (37.5 mg - 00 :00 total) by Externa mouth l every morning (before breakfast) Rosuvastati Yes [id number] 40mg Take 1 Karly n Calcium 7-15 tablet (40 Seyb old 40 MG oral 00:00: mg total) - Tablet 00 by mouth Externa daily l Benzonatate Yes [id number] 100mg Q.[id number] Take 1 Karly (Tessalon 7-15 88318 [id number] capsule Seybold Perles) 100 00:00: 3D (100 mg - MG oral 00 total) by Externa Capsule mouth 3 l times daily as needed for cough Benzonatate 2021- No [id number] 100mg Q.[id number] Take 1 Karly (Tessalon 7-15 - 82618 [id number] capsule Seybold Perles) 100 00:00: 00:00 3D (100 mg - MG oral 00 :00 total) by Externa Capsule mouth 3 l times daily as needed for cough Famotidine Yes TAKE 1 Kelse y 40 MG oral 6-14 TABLET BY Seyb old Tablet 00:00: MOUTH - 00 EVERY Externa NIGHT AT l BEDTIME Famotidine Yes TAKE 1 Kelse y 40 MG oral 6-14 TABLET BY Seyb old Tablet 00:00: MOUTH - 00 EVERY Externa NIGHT AT l BEDTIME Famotidine Yes TAKE 1 Kelse y 40 MG oral 6-14 TABLET BY Seyb old Tablet 00:00: MOUTH - 00 EVERY Externa NIGHT AT l BEDTIME Famotidine 2021-0 Yes TAKE 1 Kelse y 40 MG oral 6-14 TABLET BY Seyb old Tablet 00:00: MOUTH - 00 EVERY Externa NIGHT AT l BEDTIME Famotidine 2021-0 2022- No TAKE 1 Sofi ey 40 MG oral 6-14 24 TABLET BY Sey bold Tablet 00:00: 00:00 MOUTH - 00 :00 EVERY Externa NIGHT AT l BEDTIME Diclofenac 2-0 Yes 75mg Take 75 mg K elsey Sodium 75 6-06 by mouth 2 Seyb old MG oral 00:00: times - Tablet 00 daily Externa Delayed l Response Orphenadrin 2021-0 Yes 100mg Q.5D Take 100 K elsey e Citrate 6-06 mg by Seybold CR 100 MG 00:00: mouth 2 - oral Tablet 00 times Externa 12 Hour daily as l Sustained needed Release Diclofenac 2-0 Yes 75mg Take 75 mg K elsey Sodium 75 6-06 by mouth 2 Seyb old MG oral 00:00: times - Tablet 00 daily Externa Delayed l Response Orphenadrin 2-0 Yes 100mg Q.5D Take 100 K elsey e Citrate 6-06 mg by Seybold CR 100 MG 00:00: mouth 2 - oral Tablet 00 times Externa 12 Hour daily as l Sustained needed Release Diclofenac 2-0 Yes 75mg Take 75 mg K elsey Sodium 75 6-06 by mouth 2 Seyb old MG oral 00:00: times - Tablet 00 daily Externa Delayed l Response Orphenadrin 2-0 Yes 100mg Q.5D Take 100 K elsey e Citrate 6-06 mg by Seybold CR 100 MG 00:00: mouth 2 - oral Tablet 00 times Externa 12 Hour daily as l Sustained needed Release Diclofenac 2022-0 Yes 75mg Take 75 mg K elsey Sodium 75 6-06 by mouth 2 Seyb old MG oral 00:00: times - Tablet 00 daily Externa Delayed l Response Orphenadrin 2-0 Yes 100mg Q.5D Take 100 K elsey e Citrate 6-06 mg by Seybold CR 100 MG 00:00: mouth 2 - oral Tablet 00 times Externa 12 Hour daily as l Sustained needed Release Diclofenac 2022-0 Yes 75mg Take 75 mg K elsey Sodium 75 6-06 by mouth 2 Seyb old MG oral 00:00: times - Tablet 00 daily Externa Delayed l Response Orphenadrin 2022-0 Yes 100mg Q.5D Take 100 K elsey e Citrate 6-06 mg by Seybold CR 100 MG 00:00: mouth 2 - oral Tablet 00 times Externa 12 Hour daily as l Sustained needed Release Diclofenac 2022-0 Yes 75mg Take 75 mg K elsey Sodium 75 6-06 by mouth 2 Seyb old MG oral 00:00: times - Tablet 00 daily Externa Delayed l Response Orphenadrin 2022-0 Yes 100mg Q.5D Take 100 K elsey e Citrate 6-06 mg by Seybold CR 100 MG 00:00: mouth 2 - oral Tablet 00 times Externa 12 Hour daily as l Sustained needed Release Diclofenac 2022-0 Yes 75mg Take 75 mg K elsey Sodium 75 6-06 by mouth 2 Seyb old MG oral 00:00: times - Tablet 00 daily Externa Delayed l Response Orphenadrin 2022-0 Yes 100mg Q.5D Take 100 K elsey e Citrate 6-06 mg by Seybold CR 100 MG 00:00: mouth 2 - oral Tablet 00 times Externa 12 Hour daily as l Sustained needed Release OZEMPIC 2022-0 Yes [id number] .5mg Inject 0.5 Karly (0.25 or 5-26 mg into Seybold 0.5 00:00: the skin mg/dose) 2 00 once a mg/1.5 mL week SQ Solution Pen-Injecto r Cyclobenzap 2022-0 Yes [id number] 5mg Q.[id number] Take 1 Karly rine HCl 5 5-26 [id number] tablet (5 Seybold MG oral 00:00: 3D mg total) Tablet 00 by mouth 3 times daily as needed for muscle spasms Cyclobenzap 2022-0 Yes [id number] 5mg Q.[id number] Take 1 Karly rine HCl 5 5-26 [id number] tablet (5 Seybold MG oral 00:00: 3D mg total) - Tablet 00 by mouth 3 Externa times l daily as needed for muscle spasms Cyclobenzap 2022-0 Yes [id number] 5mg Q.[id number] Take 1 Karly rine HCl 5 5-26 [id number] tablet (5 Seybold MG oral 00:00: 3D mg total) - Tablet 00 by mouth 3 Externa times l daily as needed for muscle spasms Cyclobenzap Yes [id number] 5mg Q.[id number] Take 1 Karly rine HCl 5 5-26 [id number] tablet (5 Seybold MG oral 00:00: 3D mg total) - Tablet 00 by mouth 3 Externa times l daily as needed for muscle spasms Cyclobenzap 2021- Yes [id number] 5mg Q.[id number] Take 1 Karly rine HCl 5 -26 [id number] tablet (5 Seybold MG oral 00:00: 3D mg total) - Tablet 00 by mouth 3 Externa times l daily as needed for muscle spasms Cyclobenzap 2022- No [id number] 5mg Q.[id number] Take 1 Karly rine HCl 5 5-26 -24 [id number] tablet (5 Seybold MG oral 00:00: 00:00 3D mg total) - Tablet 00 :00 by mouth 3 Externa times l daily as needed for muscle spasms Diclofenac 2021- No [id number] 75mg Take 1 Karly Sodium 75 -28 05-26 tablet (75 Sey bold MG oral 00:00: 00:00 mg total) Tablet 00 :00 by mouth Delayed in the Response morning and 1 tablet (75 mg total) in the evening. Rosuvastati Yes [id number] TAKE 1 Karly n Calcium 4-27 TABLET(40 Seybo ld 40 MG oral 00:00: MG) BY Tablet 00 MOUTH DAILY Cyclobenzap 2021- No 10mg Take 10 mg Karly rine HCl 10 - 04-26 by mouth Sey bold MG oral 09:35: 00:00 daily Tablet 20 :00 Cholecalcif 2021-2021- No 1000U Take 1,000 Karly lavinia 25 MCG 4-26 04-26 units by Sey bold (1000 UT) 09:35: 00:00 mouth oral Tablet 19 :00 daily Cyanocobala 2021-0 2021- No 1000ug Take 1,000 Karly min 1000 -26 04-26 mcg by Seybold MCG oral 09:35: 00:00 mouth Tablet 19 :00 daily Celecoxib 2021-0 Yes [id number] 200mg Take 1 K elsey (CeleBREX) 4-26 capsule Seybol d 200 MG oral 00:00: (200 mg Capsule 00 total) by mouth in the morning and 1 capsule (200 mg total) in the evening. Tramadol 2021-0 Yes [id number] 50mg Q.25D Take 1 Ke lsey HCl 50 MG 4-26 tablet (50 Seyb old oral Tablet 00:00: mg total) 00 by mouth every 6 hours as needed for pain OZEMPIC 2021-0 Yes [id number] .25mg Inject Neville sey (0.25 or 4-26 0.25 mg Seybold 0.5 00:00: into the mg/dose) 2 00 skin once mg/1.5 mL a week SQ Solution Pen-Injecto r Tramadol 0 Yes [id number] 50mg Q.25D Take 1 Ke lsey HCl 50 MG 4-26 tablet (50 Seyb old oral Tablet 00:00: mg total) 00 by mouth every 6 hours as needed for pain Tramadol 2021-0 Yes [id number] 50mg Q.25D Take 1 Ke lsey HCl 50 MG 4-26 tablet (50 Seyb old oral Tablet 00:00: mg total) - 00 by mouth Externa every 6 l hours as needed for pain Tramadol 2021-0 Yes [id number] 50mg Q.25D Take 1 Ke lsey HCl 50 MG 4-26 tablet (50 Seyb old oral Tablet 00:00: mg total) - 00 by mouth Externa every 6 l hours as needed for pain Tramadol 2021-0 Yes [id number] 50mg Q.25D Take 1 Ke lsey HCl 50 MG 4-26 tablet (50 Seyb old oral Tablet 00:00: mg total) - 00 by mouth Externa every 6 l hours as needed for pain Tramadol 2021-0 Yes [id number] 50mg Q.25D Take 1 Ke lsey HCl 50 MG 4-26 tablet (50 Seyb old oral Tablet 00:00: mg total) - 00 by mouth Externa every 6 l hours as needed for pain Tramadol 2021-0 2023- No [id number] 50mg Q.25D Take 1 K elsey HCl 50 MG 4-26 01-24 tablet (50 Sey bold oral Tablet 00:00: 00:00 mg total) - 00 :00 by mouth Externa every 6 l hours as needed for pain Celecoxib 2021- No [id number] 200mg Take 1 Karly (CeleBREX) 08-31- capsule Seybo ld 200 MG oral 00:00: 00:00 (200 mg Capsule 00 :00 total) by mouth in the morning and 1 capsule (200 mg total) in the evening. OZEMPIC 2021- No [id number] .25mg Inject Ke lsey (0.25 or 08-31 0.25 mg Seybold 0.5 00:00: 00:00 into the mg/dose) 2 00 :00 skin once mg/1.5 mL a week SQ Solution Pen-Injecto r Rosuvastati Yes [id number] TAKE 1 Karly n Calcium 3-29 TABLET(20 Seybo ld 20 MG oral 00:00: MG) BY Tablet 00 MOUTH DAILY Vitamin D, Yes [id number] TAKE 1 K elsey Ergocalcife 3-14 CAPSULE BY Se gisselle davey, 1.25 00:00: MOUTH 1 MG ( 00 TIME A UT) oral WEEK Capsule Vitamin D, Yes [id number] TAKE 1 K elsey Ergocalcife 3-14 CAPSULE BY Se gisselle davey, 1.25 00:00: MOUTH 1 MG ( TIME A UT) oral WEEK Capsule Cyclobenzap Yes 10mg Take 10 mg Karly rine HCl 10 1-31 by mouth Seyb old MG oral 10:13: daily Tablet 54 Famotidine Yes 1 po qhs Neville sey (Pepcid) 40 1-31 Seybold MG oral 00:00: Tablet 00 Famotidine 2021-0 Yes 1 po qhs Neville sey (Pepcid) 40 1-31 Seybold MG oral 00:00: Tablet 00 Famotidine 2021-0 Yes 1 po qhs Neville sey (Pepcid) 40 1-31 Seybold MG oral 00:00: Tablet 00 Rosuvastati 0 Yes [id number] 20mg Take 1 Karly n Calcium 1-27 tablet (20 Seyb old 20 MG oral 00:00: mg total) Tablet 00 by mouth daily Cyclobenzap 2022-0 Yes 10mg Take 10 mg Karly rine HCl 10 1-24 by mouth Seyb old MG oral 08:15: daily Tablet 32 Vitamin D, 2021-0 Yes [id number] 57726D Take 1 Karly Ergocalcife 1-24 capsule Seybo ld rol, 1.25 00:00: (50,000 MG (37606 00 units UT) oral total) by Capsule mouth once a week Nitrofurant 2021-0 Yes [id number] 100mg Take 1 Karly oin Monohyd 1-24 capsule Seybo ld Macro 00:00: (100 mg (Macrobid) 00 total) by 100 MG oral mouth 2 Capsule times daily Lidocaine 2021-0 Yes [id number] Swallow 5 Karly HCl 1-24 ml every Seybold (Lidocaine 00:00: 3-4 hours Viscous 00 as needed HCl) 2 % for throat mouth/throa pain t Solution Vitamin D, 0 Yes [id number] 86187L Take 1 Karly Ergocalcife 1-24 capsule Seybo ld rol, 1.25 00:00: (50,000 MG (14910 00 units UT) oral total) by Capsule mouth once a week Nitrofurant 2021-0 Yes [id number] 100mg Take 1 Karly oin Monohyd 1-24 capsule Seybo ld Macro 00:00: (100 mg (Macrobid) 00 total) by 100 MG oral mouth 2 Capsule times daily Lidocaine 2021-0 Yes [id number] Swallow 5 Karly HCl 1-24 ml every Seybold (Lidocaine 00:00: 3-4 hours Viscous 00 as needed HCl) 2 % for throat mouth/throa pain t Solution Nitrofurant 2021-0 2021- No [id number] 100mg Take 1 Karly oin Monohyd 1-24 04-26 capsule Seyb old Macro 00:00: 00:00 (100 mg (Macrobid) 00 :00 total) by 100 MG oral mouth 2 Capsule times daily Lidocaine 2021-0 2021- No [id number] Swallow 5 Karly HCl 1-24 04-26 ml every Seybold (Lidocaine 00:00: 00:00 3-4 hours Viscous 00 :00 as needed HCl) 2 % for throat mouth/throa pain t Solution hydroCHLORO 2021-0 2021- No 25mg Take 25 mg Karly thiazide 25 1-21 01- by mouth Sey bold MG oral 09:21: 00:00 daily Tablet 56 :00 Losartan 2021-0 2021- No 100mg Take 100 Neville sey Potassium -28 05- mg by Seybold 100 MG oral 09:21: 00:00 mouth Tablet 56 :00 daily Metformin 2021-0 2021- No 500mg Take 500 Ke lsey HCl ER 500 -28 05- mg by Seybold MG oral 09:21: 00:00 mouth 2 TABLET SR 56 :00 times 24 HR daily Rosuvastati 2021-0 2021- No 10mg Take 10 mg Karly n Calcium -28 05- by mouth Seybo ld 10 MG oral 09:21: 00:00 daily Tablet 56 :00 Cyclobenzap 2021- Yes 10mg Take 10 mg Karly rine HCl 10 05-28 by mouth Seyb old MG oral 08:28: daily Tablet 44 hydroCHLORO 2021-0 Yes [id number] 25mg Take 1 Karly thiazide 25 -21 tablet (25 Se ybold MG oral 00:00: mg total) Tablet 00 by mouth daily Losartan 2021-0 Yes [id number] 100mg Take 1 Ke lsey Potassium -21 tablet Seybold 100 MG oral 00:00: (100 mg Tablet 00 total) by mouth daily Metformin 2021-0 Yes [id number] 500mg Take 1 Karly HCl ER 500 - tablet Seybold MG oral 00:00: (500 mg TABLET SR 00 total) by 24 HR mouth 2 times daily Omeprazole 2021-0 Yes [id number] 40mg Take 1 K elsey 40 MG oral - capsule Seybol d Delayed 00:00: (40 mg Release 00 total) by Capsule mouth daily Rosuvastati 2021-0 Yes [id number] 10mg Take 1 Karly n Calcium -21 tablet (10 Seyb old 10 MG oral 00:00: mg total) Tablet 00 by mouth daily hydroCHLORO 2021-0 Yes [id number] 25mg Take 1 Karly thiazide 25 -21 tablet (25 Se ybold MG oral 00:00: mg total) Tablet 00 by mouth daily Losartan 2021-0 Yes [id number] 100mg Take 1 Ke lsey Potassium -21 tablet Seybold 100 MG oral 00:00: (100 mg Tablet 00 total) by mouth daily Metformin 2021-0 Yes [id number] 500mg Take 1 Karly HCl ER 500 1-21 tablet Seybold MG oral 00:00: (500 mg TABLET SR 00 total) by 24 HR mouth 2 times daily Omeprazole 2021-0 Yes [id number] 40mg Take 1 K elsey 40 MG oral 1-21 capsule Seybol d Delayed 00:00: (40 mg Release 00 total) by Capsule mouth daily hydroCHLORO 2021-0 Yes [id number] 25mg Take 1 Karly thiazide 25 1-21 tablet (25 Se ybold MG oral 00:00: mg total) Tablet 00 by mouth daily Losartan 0 Yes [id number] 100mg Take 1 Ke lsey Potassium 1-21 tablet Seybold 100 MG oral 00:00: (100 mg Tablet 00 total) by mouth daily Metformin 2021-0 Yes [id number] 500mg Take 1 Karly HCl ER 500 1-21 tablet Seybold MG oral 00:00: (500 mg TABLET SR 00 total) by 24 HR mouth 2 times daily Omeprazole 2021-0 Yes [id number] 40mg Take 1 K elsey 40 MG oral 1-21 capsule Seybol d Delayed 00:00: (40 mg Release 00 total) by Capsule mouth daily hydroCHLORO 2021-0 Yes [id number] 25mg Take 1 Karly thiazide 25 1-21 tablet (25 Se ybold MG oral 00:00: mg total) Tablet 00 by mouth daily Losartan 2021-0 Yes [id number] 100mg Take 1 Ke lsey Potassium 1-21 tablet Seybold 100 MG oral 00:00: (100 mg Tablet 00 total) by mouth daily Metformin 2021-0 Yes [id number] 500mg Take 1 Karly HCl ER 500 1-21 tablet Seybold MG oral 00:00: (500 mg TABLET SR 00 total) by 24 HR mouth 2 times daily Omeprazole 2021-0 Yes [id number] 40mg Take 1 K elsey 40 MG oral 1-21 capsule Seybol d Delayed 00:00: (40 mg Release 00 total) by Capsule mouth daily hydroCHLORO 2021-0 Yes [id number] 25mg Take 1 Karly thiazide 25 1-21 tablet (25 Se ybold MG oral 00:00: mg total) - Tablet 00 by mouth Externa daily l Losartan 0 Yes [id number] 100mg Take 1 Ke lsey Potassium 1-21 tablet Seybold 100 MG oral 00:00: (100 mg - Tablet 00 total) by Externa mouth l daily Metformin 2-0 Yes [id number] 500mg Take 1 Karly HCl ER 500 1-21 tablet Seybold MG oral 00:00: (500 mg - TABLET SR 00 total) by Exter na 24 HR mouth 2 l times daily hydroCHLORO 2022-0 Yes [id number] 25mg Take 1 Karly thiazide 25 1-21 tablet (25 Se ybold MG oral 00:00: mg total) - Tablet 00 by mouth Externa daily l Losartan 2-0 Yes [id number] 100mg Take 1 Ke lsey Potassium 1-21 tablet Seybold 100 MG oral 00:00: (100 mg - Tablet 00 total) by Externa mouth l daily Metformin 2021-0 Yes [id number] 500mg Take 1 Karly HCl ER 500 1-21 tablet Seybold MG oral 00:00: (500 mg - TABLET SR 00 total) by Exter na 24 HR mouth 2 l times daily hydroCHLORO 2021-0 Yes [id number] 25mg Take 1 Karly thiazide 25 1-21 tablet (25 Se ybold MG oral 00:00: mg total) - Tablet 00 by mouth Externa daily l Metformin 2-0 Yes [id number] 500mg Take 1 Karly HCl ER 500 1-21 tablet Seybold MG oral 00:00: (500 mg - TABLET SR 00 total) by Exter na 24 HR mouth 2 l times daily hydroCHLORO 2022-0 Yes [id number] 25mg Take 1 Karly thiazide 25 1-21 tablet (25 Se ybold MG oral 00:00: mg total) - Tablet 00 by mouth Externa daily l hydroCHLORO 2-0 Yes [id number] 25mg Take 1 Karly thiazide 25 1-21 tablet (25 Se ybold MG oral 00:00: mg total) - Tablet 00 by mouth Externa daily l hydroCHLORO 2022-0 Yes [id number] 25mg Take 1 Karly thiazide 25 1-21 tablet (25 Se ybold MG oral 00:00: mg total) - Tablet 00 by mouth Externa daily l hydroCHLORO 2022-0 Yes [id number] 25mg Take 1 Karly thiazide 25 1-21 tablet (25 Se ybold MG oral 00:00: mg total) Tablet 00 by mouth daily Losartan Yes [id number] 100mg Take 1 Ke lsey Potassium 05-28 tablet Seybold 100 MG oral 00:00: (100 mg Tablet 00 total) by mouth daily Metformin Yes [id number] 500mg Take 1 Karly HCl ER 500 -21 tablet Seybold MG oral 00:00: (500 mg TABLET SR 00 total) by 24 HR mouth 2 times daily Omeprazole Yes [id number] 40mg Take 1 K elsey 40 MG oral - capsule Seybol d Delayed 00:00: (40 mg Release 00 total) by Capsule mouth daily Rosuvastati Yes [id number] 10mg Take 1 Karly n Calcium - tablet (10 Seyb old 10 MG oral 00:00: mg total) Tablet 00 by mouth daily hydroCHLORO 2022- No [id number] 25mg Take 1 Karly thiazide 25 -21 03-08 tablet (25 S eybold MG oral 00:00: 00:00 mg total) - Tablet 00 :00 by mouth Externa daily l Losartan 2021- No [id number] 100mg Take 1 K elsey Potassium -21 04-25 tablet Seybold 100 MG oral 00:00: 00:00 (100 mg - Tablet 00 :00 total) by Externa mouth l daily Omeprazole 2020-05- No TAKE 1 Sofi [...] MG oral 15:11: daily Tablet 08 hydrOXYzine 2020- Yes [id number] 10mg Q.[id number] Take 1 Karly HCl 10 MG 1-05 [id number] tablet (10 Seybold oral Tablet 00:00: 3D mg total) 00 by mouth 3 times daily as needed for itching methylPREDN 2020- Yes [id number] 1{cynthia} Take 1 cynthia Karly ISolone 4 1-05 by mouth Seybol d MG oral 00:00: See Admin Tablet 00 Instructio Therapy ns Use as Pack directed hydrOXYzine 2020- Yes [id number] 10mg Q.[id number] Take 1 Karly HCl 10 MG 1-05 [id number] tablet (10 Seybold oral Tablet 00:00: 3D mg total) 00 by mouth 3 times daily as needed for itching methylPREDN 2020- Yes [id number] 1{cynthia} Take 1 cynthia Karly ISolone 4 1-05 by mouth Seybol d MG oral 00:00: See Admin Tablet 00 Instructio Therapy ns Use as Pack directed hydrOXYzine 2020- Yes [id number] 10mg Q.[id number] Take 1 Karly HCl 10 MG 1-05 [id number] tablet (10 Seybold oral Tablet 00:00: 3D mg total) 00 by mouth 3 times daily as needed for itching methylPREDN 2020- Yes [id number] 1{cynthia} Take 1 cynthia Karly ISolone 4 1-05 by mouth Seybol d MG oral 00:00: See Admin Tablet 00 Instructio Therapy ns Use as Pack directed hydrOXYzine 2020- 2022- No [id number] 10mg Q.[id number] Take 1 Karly HCl 10 MG 1-05 -31 [id number] tablet (10 Seybold oral Tablet 00:00: 00:00 3D mg total) 00 :00 by mouth 3 times daily as needed for itching methylPREDN 2020- 202- No [id number] 1{cynthia} Take 1 cynthia Karly ISolone 4 1-05 -31 by mouth Seybo ld MG oral 00:00: 00:00 See Admin Tablet 00 :00 Instructio Therapy ns Use as Pack directed Triamcinolo 2020-05- No [id number] Apply to Karly ne 05-12 12-04 area twice Seybold Acetonide 00:00: 05:59 daily 0.5 % apply 00 :00 externally Cream Omeprazole Yes TAKE 1 Kelse y 40 MG oral 9-10 CAPSULE(40 Sey bold Delayed 00:00: MG) BY Release 00 MOUTH Capsule DAILY Nitrofurant Yes [id number] 100mg Take 1 Karly oin Monohyd 8-27 capsule Seybo ld Macro 100 00:00: (100 mg MG oral 00 total) by Capsule mouth 2 times daily Nitrofurant Yes [id number] 100mg Take 1 Karly oin Monohyd 8-27 capsule Seybo ld Macro 100 00:00: (100 mg MG oral 00 total) by Capsule mouth 2 times daily Nitrofurant 2021- No [id number] 100mg Take 1 Karly oin Monohyd 8-27 01-24 capsule Seyb old Macro 100 00:00: 00:00 (100 mg MG oral 00 :00 total) by Capsule mouth 2 times daily Meloxicam Yes 7.5mg Take 7.5 Neville sey 7.5 MG oral 8-24 mg by Seybold Tablet 00:00: mouth 00 daily Meloxicam Yes 7.5mg Take 7.5 Neville sey 7.5 MG oral 8-24 mg by Seybold Tablet 00:00: mouth 00 daily Meloxicam Yes 7.5mg Take 7.5 Neville sey 7.5 MG oral 8-24 mg by Seybold Tablet 00:00: mouth 00 daily Meloxicam Yes 7.5mg Take 7.5 Neville sey 7.5 MG oral 8-24 mg by Seybold Tablet 00:00: mouth 00 daily Meloxicam 2021- No 7.5mg Take 7.5 Ke lsey 7.5 MG oral 8-24 04-26 mg by Seybol d Tablet 00:00: 00:00 mouth 00 :00 daily Meloxicam Meloxicam 2020- No 1{table QD Meloxicam 7.5 MG 7.5 MG 8-24 09-23 t} 7.5 MG 00:00: 00:00 00 :00 Cephalexin 2021-0 Yes [id number] 500mg Take 1 Karly 500 MG oral 8-11 capsule Seybo ld Capsule 00:00: (500 mg 00 total) by mouth 2 times daily Cephalexin 2021-0 Yes [id number] 500mg Take 1 Karly 500 MG oral 8-11 capsule Seybo ld Capsule 00:00: (500 mg 00 total) by mouth 2 times daily Cephalexin 2021-0 Yes [id number] 500mg Take 1 Karly 500 MG oral 8-11 capsule Seybo ld Capsule 00:00: (500 mg 00 total) by mouth 2 times daily Cephalexin 2021-0 Yes [id number] 500mg Take 1 Karly 500 MG oral 8-11 capsule Seybo ld Capsule 00:00: (500 mg 00 total) by mouth 2 times daily Cephalexin 2021-0 2022- No [id number] 500mg Take 1 Karly 500 MG oral 8-11 04-26 capsule Seyb old Capsule 00:00: 00:00 (500 mg 00 :00 total) by mouth 2 times daily hydrOXYzine 2021-0 Yes [id number] 25mg Q6H Take 1 Karly HCl 25 MG 7-14 tablet (25 Seyb old oral Tablet 00:00: mg total) 00 by mouth every 6 hours as needed for itching hydrOXYzine 2021-0 Yes [id number] 25mg Q6H Take 1 Karly HCl 25 MG 7-14 tablet (25 Seyb old oral Tablet 00:00: mg total) 00 by mouth every 6 hours as needed for itching hydrOXYzine 2021-0 Yes [id number] 25mg Q6H Take 1 Karly HCl 25 MG 7-14 tablet (25 Seyb old oral Tablet 00:00: mg total) 00 by mouth every 6 hours as needed for itching hydrOXYzine 2021-0 Yes [id number] 25mg Q6H Take 1 Karly HCl 25 MG 7-14 tablet (25 Seyb old oral Tablet 00:00: mg total) 00 by mouth every 6 hours as needed for itching hydrOXYzine 2021-0 2022- No [id number] 25mg Q.25D Take 1 Karly HCl 25 MG 7-14 04-26 tablet (25 Sey bold oral Tablet 00:00: 00:00 mg total) 00 :00 by mouth every 6 hours as needed for itching Lidocaine 2021-0 Yes 5 mL swish Ke lsey HCl 5-17 and Seybold (Lidocaine 00:00: swallow q Viscous 00 8 hours HCl) 2 % prn mouth/throa t Solution Lidocaine 0 Yes 5 mL swish Ke lsey HCl 5-17 and Seybold (Lidocaine 00:00: swallow q Viscous 00 8 hours HCl) 2 % prn mouth/throa t Solution Lidocaine 0 2- No 5 mL swish K elsey HCl 5-17 -24 and Seybold (Lidocaine 00:00: 00:00 swallow q Viscous 00 :00 8 hours HCl) 2 % prn mouth/throa t Solution proMETHazin Yes 25mg Take 1 [facility] 25 mg 3-19 tablet by ity of tablet 00:00: mouth [place] 00 every 6 Medical (six) Branch hours as needed for Nausea and Vomiting (N/V). acetaminoph 2016- Yes 1{tbl} Take 1 Un cari en-codeine 3-19 tablet by ity of (TYLENOL-CO 00:00: mouth [place] DEINE #3) 00 every 6 Medical 300-30 mg (six) Branch tablet hours as needed for Pain (scale 4-6) (for cough). proMETHazin 2017-0 Yes 25mg Take 1 [facility] ers e 25 mg 3-19 tablet by ity of tablet 00:00: mouth [place] 00 every 6 Medical (six) Branch hours as needed for Nausea and Vomiting (N/V). acetaminoph 2017- Yes 1{tbl} Take 1 Un cari en-codeine 3-19 tablet by ity of (TYLENOL-CO 00:00: mouth [place] DEINE #3) 00 every 6 Medical 300-30 mg (six) Branch tablet hours as needed for Pain (scale 4-6) (for cough). proMETHazin 2017-0 Yes 25mg Take 1 [facility] ers e 25 mg 3-19 tablet by ity of tablet 00:00: mouth [place] 00 every 6 Medical (six) Branch hours as needed for Nausea and Vomiting (N/V). acetaminoph 2017-0 Yes 1{tbl} Take 1 Un cari en-codeine 3-19 tablet by ity of (TYLENOL-CO 00:00: mouth [place] DEINE #3) 00 every 6 Medical 300-30 mg (six) Branch tablet hours as needed for Pain (scale 4-6) (for cough). proMETHazin Yes 25mg Take 1 [facility] ers e 25 mg 3-19 tablet by ity of tablet 00:00: mouth [place] 00 every 6 Medical (six) Branch hours as needed for Nausea and Vomiting (N/V). acetaminoph Yes 1{tbl} Take 1 Un cari en-codeine 3-19 tablet by ity of (TYLENOL-CO 00:00: mouth [place] DEINE #3) 00 every 6 Medical 300-30 mg (six) Branch tablet hours as needed for Pain (scale 4-6) (for cough). proMETHazin 2022- No 25mg Take 1 [facility] vers e 25 mg 3-19 04-01 tablet by ity of tablet 00:00: 00:00 mouth [place] 00 :00 every 6 Medical (six) Branch hours as needed for Nausea and Vomiting (N/V). acetaminoph 2022- No 1{tbl} Take 1 [facility] nivers en-codeine 3-19 04-01 tablet by ity of (TYLENOL-CO 00:00: 00:00 [place] DEINE #3) 00 :00 every 6 Medical 300-30 mg (six) Branch tablet hours as needed for Pain (scale 4-6) (for cough). naproxen 2015-0 Yes 550mg Take 1 Tab Un cari sodium 2-29 by mouth 2 ity of (ANAPROX) 00:00: (two) [place] 550 mg 00 times Medical tablet daily with Branch meals. naproxen 2015-0 Yes 550mg Take 1 Tab Un cari sodium 2-29 by mouth 2 ity of (ANAPROX) 00:00: (two) [place] 550 mg 00 times Medical tablet daily with Branch meals. naproxen 2016-0 Yes 550mg Take 1 Tab Un cari sodium 2-29 by mouth 2 ity of (ANAPROX) 00:00: (two) [place] 550 mg 00 times Medical tablet daily with Branch meals. naproxen 2016-0 Yes 550mg Take 1 Tab Un cari sodium 2-29 by mouth 2 ity of (ANAPROX) 00:00: (two) [place] 550 mg 00 times Medical tablet daily with Branch meals. doxycycline 2016-0 Yes 100mg Take 1 [facility] (VIBRAMYCIN 2-29 by mouth 2 it y of ) 100 mg 00:00: (two) [place] capsule 00 times Medical daily. Branch naproxen 2016-0 Yes 550mg Take 1 Tab Un cari sodium 2-29 by mouth 2 ity of (ANAPROX) 00:00: (two) [place] 550 mg 00 times Medical tablet daily with Branch meals. naproxen 2016-0 Yes 550mg Take 1 Tab Un cari sodium 2-29 by mouth 2 ity of (ANAPROX) 00:00: (two) [place] 550 mg 00 times Medical tablet daily with Branch meals. naproxen 2016-0 Yes 550mg Take 1 Tab Un cari sodium 2-29 by mouth 2 ity of (ANAPROX) 00:00: (two) [place] 550 mg 00 times Medical tablet daily with Branch meals. naproxen 2016-0 Yes 550mg Take 1 Tab Un cari sodium 2-29 by mouth 2 ity of (ANAPROX) 00:00: (two) [place] 550 mg 00 times Medical tablet daily with Branch meals. naproxen 2016-0 Yes 550mg Take 1 Tab Un cari sodium 2-29 by mouth 2 ity of (ANAPROX) 00:00: (two) [place] 550 mg 00 times Medical tablet daily with Branch meals. doxycycline 2016-0 Yes 100mg Take 1 [facility] (VIBRAMYCIN 2-29 by mouth 2 it y of ) 100 mg 00:00: (two) [place] capsule 00 times Medical daily. Branch naproxen 2016-0 Yes 550mg Take 1 Tab Un cari sodium 2-29 by mouth 2 ity of (ANAPROX) 00:00: (two) [place] 550 mg 00 times Medical tablet daily with Branch meals. doxycycline 2016-0 Yes 100mg Take 1 [facility] (VIBRAMYCIN 2-29 by mouth 2 it y of ) 100 mg 00:00: (two) [place] capsule 00 times Medical daily. Branch naproxen 2016-0 Yes 550mg Take 1 Tab Un cari sodium 2-29 by mouth 2 ity of (ANAPROX) 00:00: (two) [place] 550 mg 00 times Medical tablet daily with Branch meals. doxycycline 2016-0 Yes 100mg Take 1 Cap [facility] (VIBRAMYCIN 2-29 by mouth 2 it y of ) 100 mg 00:00: (two) [place] capsule 00 times Medical daily. Branch naproxen Yes 550mg Take 1 Tab Un cari sodium 2-29 by mouth 2 ity of (ANAPROX) 00:00: (two) [place] 550 mg 00 times Medical tablet daily with Branch meals. doxycycline 2022- No 100mg Take 1 Cap [facility] (VIBRAMYCIN 2-29 04- by mouth 2 i ty of ) 100 mg 00:00: 00:00 (two) [place] capsule 00 :00 times Medical daily. Branch gabapentin 2014- Yes 400mg Take 1 Cap [facility] (NEURONTIN) 7-27 by mouth 3 it y of 400 mg 00:00: (three) [place] capsule 00 times Medical daily. Branch traMADOL Yes 50mg Take 1 Tab [facility] vers (ULTRAM) 50 7-27 by mouth ity of mg tablet 00:00: every 6 [place] 00 (six) Medical hours as Branch needed for Pain (scale 4-6). gabapentin 2014- Yes 400mg Take 1 Cap [facility] (NEURONTIN) 7-27 by mouth 3 it y of 400 mg 00:00: (three) [place] capsule 00 times Medical daily. Branch traMADOL 0 Yes 50mg Take 1 Tab Uni vers (ULTRAM) 50 7-27 by mouth ity of mg tablet 00:00: every 6 [place] 00 (six) Medical hours as Branch needed for Pain (scale 4-6). gabapentin 0 Yes 400mg Take 1 Cap Univers (NEURONTIN) 7-27 by mouth 3 it y of 400 mg 00:00: (three) [place] capsule 00 times Medical daily. Branch traMADOL 2014-0 Yes 50mg Take 1 Tab Uni vers (ULTRAM) 50 7-27 by mouth ity of mg tablet 00:00: every 6 [place] 00 (six) Medical hours as Branch needed for Pain (scale 4-6). gabapentin 2014-0 Yes 400mg Take 1 Cap Univers (NEURONTIN) 7-27 by mouth 3 it y of 400 mg 00:00: (three) [place] capsule 00 times Medical daily. Branch traMADOL 2014-0 Yes 50mg Take 1 Tab Uni vers (ULTRAM) 50 7-27 by mouth ity of mg tablet 00:00: every 6 [place] 00 (six) Medical hours as Branch needed for Pain (scale 4-6). gabapentin 2014-2022- No 400mg Take 1 Cap Univers (NEURONTIN) 7-27 04-01 by mouth 3 i ty of 400 mg 00:00: 00:00 (three) [place] capsule 00 :00 times Medical daily. Branch traMADOL 2022- No 50mg Take 1 Tab Un cari (ULTRAM) 50 12-01 by mouth ity [place] mg tablet 00:00[place] 00:[place] 6 [place] ([place] Medical hours as Branch needed for Pain (scale 4-6). metFORMIN metFORMIN No metFORMIN HCl ER 500 HCl ER 500 HCl ER 500 MG MG MG Omeprazole Omeprazole No Omeprazole 40 MG 40 MG 40 MG Losartan Losartan No Losartan Potassium Potassium Potassium 100 MG 100 MG 100 MG Ibuprofen Ibuprofen No Ibuprofen 800 MG 800 MG 800 MG Cephalexin Cephalexin No Cephalexin 500 MG 500 MG 500 MG Meloxicam Meloxicam No Meloxicam 15 MG 15 MG 15 MG hydroCHLORO hydroCHLORO No hydroCHLOR thiazide 25 thiazide 25 Othiazide MG MG 25 MG Rosuvastati Rosuvastati No Rosuvastat n Calcium n Calcium in Calcium 10 MG 10 MG 10 MG Acetaminoph Acetaminoph No Acetaminop en-Codeine en-Codeine hen-Codein #3 300-30 #3 300-30 e #3 MG MG 300-30 MG Methocarbam Methocarbam No Methocarba ol 500 MG ol 500 MG mol 500 MG Immunizations Ordered Filled Immunization Date Status Comments [facility] e Immunization Name Name Influenza Virus 2022-04-25 Completed Karly pitts - Vaccine, age 6 00:00:00 External months and up Pneumococcal 2022-04-25 Completed Karly Whiting ld - Conjugate 15 00:00:00 External (Vaxneuvance) Influenza Virus 2022-04-25 Completed Karly jamesonold - Vaccine, age 6 00:00:00 External months and up Pneumococcal 2022-04-25 Completed Karly Championo ld - Conjugate 15 00:00:00 External (Vaxneuvance) Influenza Virus 2022-04-25 Completed Karly pitts - Vaccine, age 6 00:00:00 External months and up Pneumococcal 2022-04-25 Completed Karly Whiting ld - Conjugate 15 00:00:00 External (Vaxneuvance) Influenza Virus 2022-04-25 Completed Karly pitts - Vaccine, age 6 00:00:00 External months and up Pneumococcal 2022-04-25 Completed Karly Championo ld - Conjugate 15 00:00:00 External (Vaxneuvance) Influenza Virus 2022-04-25 Completed Karly pitts - Vaccine, age 6 00:00:00 External months and up Pneumococcal 2022-04-25 Completed Karly Championo ld - Conjugate 15 00:00:00 External (Vaxneuvance) Influenza, 2021-04-19 Completed Karly Championold Injectable, Mdck, 00:00:00 Quadrivalent With Preservatie Influenza, 2021-04-19 Completed Karly Seybold Injectable, Mdck, 00:00:00 Quadrivalent With Preservatie Influenza, 2021-04-19 Completed Karly Meekybold Injectable, Mdck, 00:00:00 Quadrivalent With Preservatie Influenza, 2021-04-19 Completed Karly Meekybold Injectable, Mdck, 00:00:00 Quadrivalent With Preservatie Influenza, 2021-04-19 Completed Karly Meekybold Injectable, Mdck, 00:00:00 Quadrivalent With Preservatie Influenza, 2021-04-19 Completed Karly Seybold - Injectable, Mdck, 00:00:00 Externa l Quadrivalent With Preservatie Influenza, 2021-04-19 Completed Karly Meekybold - Injectable, Mdck, 00:00:00 Externa l Quadrivalent With Preservatie Influenza, 2021-04-19 Completed Karly Meekybold - Injectable, Mdck, 00:00:00 Externa l Quadrivalent With Preservatie Influenza, 2021-04-19 Completed Karly Seybold - Injectable, Mdck, 00:00:00 Externa l Quadrivalent With Preservatie Influenza, 2021-04-19 Completed Karly Seybold - Injectable, Mdck, 00:00:00 Externa l Quadrivalent With Preservatie Influenza, 2021-04-19 Completed Karly Seybold - Injectable, Mdck, 00:00:00 Externa l Quadrivalent With Preservatie Influenza, 2021-04-19 Completed Karly Seybold - Injectable, Mdck, 00:00:00 Externa l Quadrivalent With Preservatie Covid-19 Vaccine 2020-08-19 Completed Karly martin (Moderna), 00:00:00 Mrna-lnp, Turner Protein, Pf, 100 Mcg/0.5ml,IM Covid-19 Vaccine 2020-08-19 Completed Karly martin (Moderna), 00:00:00 Mrna-lnp, Turner Protein, Pf, 100 Mcg/0.5ml,IM Covid-19 Vaccine 2020-08-19 Completed Karly martin Moderna (Spikevax), 00:00:00 Mrna-lnp, Turner Protein, Pf Covid-19 Vaccine 2020-08-19 Completed Karly martin Moderna (Spikevax), 00:00:00 Mrna-lnp, Turner Protein, Pf Covid-19 Vaccine 2020-08-19 Completed Karly martin - Moderna (Spikevax), 00:00:00 Exter nal Mrna-lnp, Turner Protein, Pf Covid-19 Vaccine 2020-08-19 Completed Karly martin - Moderna (Spikevax), 00:00:00 Exter nal Mrna-lnp, Turner Protein, Pf Covid-19 Vaccine 2020-08-19 Completed Karly martin (Moderna), 00:00:00 Mrna-lnp, Turner Protein, Pf, 100 Mcg/0.5ml,IM Covid-19 Vaccine 2020-08-19 Completed Karly martin - Moderna (Spikevax), 00:00:00 Exter nal Mrna-lnp, Turner Protein, Pf Covid-19 Vaccine 2020-08-19 Completed Karly martin - Moderna (Spikevax), 00:00:00 Exter nal Mrna-lnp, Turner Protein, Pf Covid-19 Vaccine 2020-08-19 Completed Karly martin - Moderna (Spikevax), 00:00:00 Exter nal Mrna-lnp, Turner Protein, Pf Covid-19 Vaccine 2020-08-19 Completed Karly martin - Moderna (Spikevax), 00:00:00 Exter nal Mrna-lnp, Turner Protein, Pf Covid-19 Vaccine 2020-08-19 Completed Karly martin - Moderna (Spikevax), 00:00:00 Exter nal Mrna-lnp, Turner Protein, Pf Covid-19 Vaccine 2020-08-19 Completed Karly Tavarez eybold (Moderna), 00:00:00 Mrna-lnp, Turner Protein, Pf, 100 Mcg/0.5ml,IM Covid-19 Vaccine 2020-07-22 Completed Karly S eybold (Moderna), 00:00:00 Mrna-lnp, Turner Protein, Pf, 100 Mcg/0.5ml,IM Covid-19 Vaccine 2020-07-22 Completed Karly S eybold (Moderna), 00:00:00 Mrna-lnp, Turner Protein, Pf, 100 Mcg/0.5ml,IM Covid-19 Vaccine 2020-07-22 Completed Karly Tavarez eybold (Moderna), 00:00:00 Mrna-lnp, Turner Protein, Pf, 100 Mcg/0.5ml,IM Covid-19 Vaccine 2020-07-22 Completed Karly Tavarez eybold (Moderna), 00:00:00 Mrna-lnp, Turner Protein, Pf, 100 Mcg/0.5ml,IM Covid-19 Vaccine 2020-07-22 Completed Karly S eybold (Moderna), 00:00:00 Mrna-lnp, Turner Protein, Pf, 100 Mcg/0.5ml,IM Covid-19 Vaccine 2020-07-22 Completed Karly S eybold Moderna (Spikevax), 00:00:00 Mrna-lnp, Turner Protein, Pf Covid-19 Vaccine 2020-07-22 Completed Karly Tavarez eybold Moderna (Spikevax), 00:00:00 Mrna-lnp, Turner Protein, Pf Covid-19 Vaccine 2020-07-22 Completed Karly S eybold Moderna (Spikevax), 00:00:00 Mrna-lnp, Turner Protein, Pf Covid-19 Vaccine 2020-07-22 Completed Karly S eybold Moderna (Spikevax), 00:00:00 Mrna-lnp, Turner Protein, Pf Covid-19 Vaccine 2020-07-22 Completed Karly S eybold - Moderna (Spikevax), 00:00:00 Exter nal Mrna-lnp, Turner Protein, Pf Covid-19 Vaccine 2020-07-22 Completed Karly martin (Moderna), 00:00:00 Mrna-lnp, Turner Protein, Pf, 100 Mcg/0.5ml,IM Covid-19 Vaccine 2020-07-22 Completed Karly martin - Moderna (Spikevax), 00:00:00 Exter nal Mrna-lnp, Turner Protein, Pf Covid-19 Vaccine 2020-07-22 Completed Karly martin - Moderna (Spikevax), 00:00:00 Exter nal Mrna-lnp, Turner Protein, Pf Covid-19 Vaccine 2020-07-22 Completed Karly martin - Moderna (Spikevax), 00:00:00 Exter nal Mrna-lnp, Turner Protein, Pf Covid-19 Vaccine 2020-07-22 Completed Karly martin (Moderna), 00:00:00 Mrna-lnp, Turner Protein, Pf, 100 Mcg/0.5ml,IM Covid-19 Vaccine 2020-07-22 Completed Karly martin - Moderna (Spikevax), 00:00:00 Exter nal Mrna-lnp, Turner Protein, Pf Covid-19 Vaccine 2020-07-22 Completed Karly martin - Moderna (Spikevax), 00:00:00 Exter nal Mrna-lnp, Turner Protein, Pf Covid-19 Vaccine 2020-07-22 Completed Karly martin - Moderna (Spikevax), 00:00:00 Exter nal Mrna-lnp, Turner Protein, Pf Covid-19 Vaccine 2020-07-22 Completed Karly martin - Moderna (Spikevax), 00:00:00 Exter nal Mrna-lnp, Turner Protein, Pf Covid-19 Vaccine 2020-07-22 Completed Karly martin - Moderna (Spikevax), 00:00:00 Exter nal Mrna-lnp, Turner Protein, Pf Covid-19 Vaccine 2020-07-22 Completed Karly martin - Moderna (Spikevax), 00:00:00 Exter nal Mrna-lnp, Turner Protein, Pf Covid-19 Vaccine 2020-07-22 Completed Karly S eybold - Moderna (Spikevax), 00:00:00 Exter nal Mrna-lnp, Turner Protein, Pf Covid-19 Vaccine 2020-07-22 Completed Karly Tavarez eybold - Moderna (Spikevax), 00:00:00 Exter nal Mrna-lnp, Turner Protein, Pf Covid-19 Vaccine 2020-07-22 Completed Karly Tavarez eybold - Moderna (Spikevax), 00:00:00 Exter nal Mrna-lnp, Turner Protein, Pf Covid-19 Vaccine 2020-07-22 Completed Karly Tavarez eybold - Moderna (Spikevax), 00:00:00 Exter nal Mrna-lnp, Turner Protein, Pf Covid-19 Vaccine 2020-07-22 Completed Karly callawaybold (Moderna), 00:00:00 Mrna-lnp, Turner Protein, Pf, 100 Mcg/0.5ml,IM Influenza Virus [...] Influenza Virus 2020-02-05 Completed Karly Se ybold - Vaccine, age 6 00:00:00 External months and up Shingles IM 2020-02-05 Completed Karly Seybol d - (Shingrix) 00:00:00 External Influenza Virus 2020-02-05 Completed Karly Se ybold Vaccine, age 6 00:00:00 months and up Influenza Virus 2020-02-05 Completed Karly Se ybold - Vaccine, age 6 00:00:00 External months and up Shingles IM 2020-02-05 Completed Karly Seybol d - (Shingrix) 00:00:00 External Shingles IM 2020-02-05 Completed Karly Seybol d (Shingrix) 00:00:00 Influenza Virus 2020-02-05 Completed Karly Se ybold - Vaccine, age 6 00:00:00 External months and up Shingles IM 2020-02-05 Completed Karly Seybol d - (Shingrix) 00:00:00 External Influenza Virus 2020-02-05 Completed Karly Se ybold - Vaccine, age 6 00:00:00 External months and up Shingles IM 2020-02-05 Completed Karly Seybol d - (Shingrix) 00:00:00 External Influenza Virus 2020-02-05 Completed Karly Se ybold - Vaccine, age 6 00:00:00 External months and up Shingles IM 2020-02-05 Completed Karly Seybol d - (Shingrix) 00:00:00 External Influenza Virus 2020-02-05 Completed Karly Se ybold - Vaccine, age 6 00:00:00 External months and up Shingles IM 2020-02-05 Completed Karly Seybol d - (Shingrix) 00:00:00 External Influenza Virus 2020-02-05 Completed Karly Se ybold - Vaccine, age 6 00:00:00 External months and up Shingles IM 2020-02-05 Completed Karly Seybol d - (Shingrix) 00:00:00 External Influenza Virus 2020-02-05 Completed Karly Se ybold [...] Influenza Virus 2019-05-24 Completed Karly Se ybold - Vaccine, age 6 00:00:00 External months and up Influenza Virus 2019-05-24 Completed Karly Se ybold Vaccine, age 6 00:00:00 months and up Influenza Virus 2019-05-24 Completed Karly Se ybold - Vaccine, age 6 00:00:00 External months and up Influenza Virus 2019-05-24 Completed Karly Se ybold - Vaccine, age 6 00:00:00 External months and up Influenza Virus 2019-05-24 Completed Karly Se ybold - Vaccine, age 6 00:00:00 External months and up Influenza Virus 2019-05-24 Completed Karly Se ybold - Vaccine, age 6 00:00:00 External months and up Influenza Virus 2019-05-24 Completed Karly Se ybold - Vaccine, age 6 00:00:00 External months and up Influenza Virus 2019-05-24 Completed Karly Se ybold - Vaccine, age 6 00:00:00 External months and up Influenza Virus 2019-05-24 Completed [...] Influenza Virus 2018-01-29 Completed Karly Se ybold - Vaccine, age 6 00:00:00 External months and up Influenza Virus 2018-01-29 Completed Karly Se ybold Vaccine, age 6 00:00:00 months and up Influenza Virus 2018-01-29 Completed Karly Se ybold - Vaccine, age 6 00:00:00 External months and up Influenza Virus 2018-01-29 Completed Karly Se ybold - Vaccine, age 6 00:00:00 External months and up Influenza Virus 2018-01-29 Completed Karly Se ybold - Vaccine, age 6 00:00:00 External months and up Influenza Virus 2018-01-29 Completed Karly Se ybold - Vaccine, age 6 00:00:00 External months and up Influenza Virus 2018-01-29 Completed Karly Meek ybold - Vaccine, age 6 00:00:00 External months and up Influenza Virus 2018-01-29 Completed Karly Meek ybold - Vaccine, age 6 00:00:00 External months and up Influenza Virus 2018-01-29 Completed Karly Se ybold Vaccine, age 6 00:00:00 months and up LIDOCAINE HCL LIDOCAINE HCL 2018-01-18 Completed [facility] - 10MG/ML 10MG/ML 08:28:00 [facility] Depo Medrol (40mg) Depo Medrol (40mg) 2018-01-18 Completed [facility] - 08:25:00 [facility] TDAP 2017-07-11 Completed [facility] 00:00:00 [facility] TDAP 2017-07-11 Completed [facility] of 00:00:00 [facility] TDAP 2017-07-11 Completed University of 00:00:00 [facility] TDAP 2017-07-11 Completed University of 00:00:00 [facility] TDAP 2017-07-11 Completed University of 00:00:00 [facility] TDAP 2017-07-11 Completed University of 00:00:00 [facility] TDAP 2017-07-11 Completed University of 00:00:00 [facility] TDAP 2017-07-11 Completed University of 00:00:00 [facility] TDAP 2017-07-11 Completed [facility] of 00:00:00 [facility] TDAP 2017-07-11 Completed University of 00:00:00 [facility] TDAP 2017-07-11 Completed University of 00:00:00 [facility] TDAP 2017-07-11 Completed University of 00:00:00 [facility] Tdap- (Boostrix, 2017-07-11 Completed Karly Tavarez eybold Adacel) 00:00:00 Tdap- (Boostrix, 2017-07-11 Completed Karly Tavarez eybold Adacel) 00:00:00 Tdap- (Boostrix, 2017-07-11 Completed Karly Tavarez eybold Adacel) 00:00:00 Tdap- (Boostrix, 2017-07-11 Completed Karly Tavarez eybold Adacel) 00:00:00 Tdap- (Boostrix, 2017-07-11 Completed Karly callawaybold - Adacel) 00:00:00 External Tdap- (Boostrix, 2017-07-11 Completed Karly S eybold - Adacel) 00:00:00 External Tdap- (Boostrix, 2017-07-11 Completed Karly S eybold Adacel) 00:00:00 Tdap- (Boostrix, 2017-07-11 Completed Karly S eybold - Adacel) 00:00:00 External Tdap- (Boostrix, 2017-07-11 Completed Karly S eybold - Adacel) 00:00:00 External Tdap- (Boostrix, 2017-07-11 Completed Karly S eybold - Adacel) 00:00:00 External Tdap- (Boostrix, 2017-07-11 Completed Karly S eybold - Adacel) 00:00:00 External Tdap- (Boostrix, 2017-07-11 Completed Karly S eybold - Adacel) 00:00:00 External Tdap- (Boostrix, 2017-07-11 Completed Karly S eybold Adacel) 00:00:00 Influenza Virus 2017-04-13 Completed Karly [...] Influenza Virus 2017-04-13 Completed Karly Se ybold - Vaccine, age 6 00:00:00 External months and up Influenza Virus 2017-04-13 Completed Karly Se ybold Vaccine, age 6 00:00:00 months and up Influenza Virus 2017-04-13 Completed Karly Se ybold - Vaccine, age 6 00:00:00 External months and up Influenza Virus 2017-04-13 Completed Karly Se ybold - Vaccine, age 6 00:00:00 External months and up Influenza Virus 2017-04-13 Completed Karly Se ybold - Vaccine, age 6 00:00:00 External months and up Influenza Virus 2017-04-13 Completed Karly Se ybold - Vaccine, age 6 00:00:00 External months and up Influenza Virus 2017-04-13 Completed Karly pitts - Vaccine, age 6 00:00:00 External months and up Influenza Virus 2017-04-13 Completed Karly pitts - Vaccine, age 6 00:00:00 External months and up Influenza Virus 2017-04-13 Completed Karly pitts Vaccine, age 6 00:00:00 months and up Vital Signs Vital Name Observation Time Observation Value Comments Source Systolic blood 2022-09-01 21:31:00 154 mm[Hg] [facility] Diastolic blood 2022-09-01 21:31:00 99 mm[Hg] [facility] Heart rate 2022-09-01 21:30:00 82 /min [facility] Respiratory rate 2022-09-01 21:30:00 18 /min [facility] Body height 2022-09-01 21:30:00 160 cm [facility] Body weight 2022-09-01 21:30:00 63.504 kg [facility] BMI 2022-09-01 21:30:00 24.80 kg/m2 [facility] Systolic blood 2022-08-18 21:21:00 138 mm[Hg] [facility] Diastolic blood 2022-08-18 21:21:00 86 mm[Hg] [facility] pressure [facility] Heart rate 2022-08-18 21:20:00 74 /min [facility] Respiratory rate 2022-08-18 21:20:00 18 /min [facility] Body height 2022-08-18 21:20:00 160 cm [facility] Body weight 2022-08-18 21:20:00 63.05 kg [facility] BMI 2022-08-18 21:20:00 24.62 kg/m2 [facility] Systolic blood 2022-08-06 22:50:00 154 mm[Hg] [facility] Diastolic blood 2022-08-06 22:50:00 89 mm[Hg] [facility]ive rs[facility] of pressure [facility] Heart rate 2022-08-06 22:50:00 79 /min [facility] Respiratory rate 2022-08-06 22:50:00 13 /min [facility] [place] [facility] Oxygen saturation in 2022-08-06 22:50:00 100 /min [facility] of Arterial blood by [facility] Pulse oximetry Branch Body temperature 2022-08-06 20:32:00 37.22 Amara [facility] Body height 2022-08-06 20:32:00 160 cm [facility] Body weight 2022-08-06 20:32:00 62.596 kg [facility] BMI 2022-08-06 20:32:00 24.45 kg/m2 [facility] Systolic blood 2022-07-25 14:47:00 125 mm[Hg] [facility]iver [facility] of pressure [facility] Diastolic blood 2022-07-25 14:47:00 85 mm[Hg] [facility] Heart rate 2022-07-25 14:47:00 77 /min [facility] Body temperature 2022-07-25 14:47:00 36.61 Amara [facility] Respiratory rate 2022-07-25 14:47:00 16 /min [facility] Body height 2022-07-25 14:47:00 160 cm [facility] Body weight 2022-07-25 14:47:00 64.864 kg [facility] BMI 2022-07-25 14:47:00 25.33 kg/m2 [facility] Oxygen saturation in 2022-07-25 14:47:00 97 /min [facility] of Arterial blood by [facility] Pulse oximetry Branch Systolic blood 2022-07-13 16:41:00 148 mm[Hg] Karly Barrios - pressure External Diastolic blood 2022-07-13 16:41:00 84 mm[Hg] Yesy Barrios - pressure External Heart rate 2022-07-13 16:41:00 87 /min Karly martin - External Body temperature 2022-07-13 16:41:00 36.06 Amara Sofi Barrios - External Respiratory rate 2022-07-13 16:41:00 14 /min Sofi ey Seybold - External Body height 2022-07-13 16:41:00 157.5 cm Karly Tavarez eybold - External Body weight 2022-07-13 16:41:00 64.864 kg Karly Tavarez eybold - External BMI 2022-07-13 16:41:00 26.16 kg/m2 Karly Tavarez eybold - External Systolic blood 2022-06-29 19:51:00 146 mm[Hg] Karly Seybold - pressure External Diastolic blood 2022-06-29 19:51:00 92 mm[Hg] Kelse y Seybold - pressure External Heart rate 2022-06-29 19:51:00 91 /min Karly Tavarez eybold - External Body temperature 2022-06-29 19:51:00 36.28 Amara Sofi ey Seybold - External Respiratory rate 2022-06-29 19:51:00 14 /min Sofi ey Seybold - External Body height 2022-06-29 19:51:00 157.5 cm Karly Tavarez eybold - External Body weight 2022-06-29 19:51:00 64.864 kg Karly Tavarez eybold - External BMI 2022-06-29 19:51:00 26.16 kg/m2 Karly Tavarez eybold - External Systolic blood 2022-05-31 15:36:00 144 mm[Hg] Karly Seybold - pressure External Diastolic blood 2022-05-31 15:36:00 86 mm[Hg] Nevillese y Seybold - pressure External Heart rate 2022-05-31 15:36:00 96 /min Karly Tavarez eybold - External Body temperature 2022-05-31 15:36:00 36.56 Amara Sofi ey Seybold - External Respiratory rate 2022-05-31 15:36:00 14 /min Sofi callaway Seybold - External Body height 2022-05-31 15:36:00 157.5 cm Karly Tavarez eybold - External Body weight 2022-05-31 15:36:00 66.679 kg Karly Tavarez eybold - External BMI 2022-05-31 15:36:00 26.89 kg/m2 Karly Tavarez eybold - External Body height 2022-05-10 16:34:00 157.5 cm Karly Tavarez eybold - External Body weight 2022-05-10 16:34:00 68.04 kg Karly Tavarez eybold - External BMI 2022-05-10 16:34:00 27.44 kg/m2 Karly S eybold - External Systolic blood 2022-04-25 15:53:00 122 mm[Hg] Karly Seybold - pressure External Diastolic blood 2022-04-25 15:53:00 74 mm[Hg] Nevillese y Seybold - pressure External Heart rate 2022-04-25 15:53:00 78 /min Karly Tavarez eybold - External Body temperature 2022-04-25 15:53:00 36.72 Amara Sofi ey Seybold - External Respiratory rate 2022-04-25 15:53:00 14 /min Sofi ey Seybold - External Body height 2022-04-25 15:53:00 157.5 cm Karly Tavarez eybold - External Body weight 2022-04-25 15:53:00 71.215 kg Karly Tavarez eybold - External BMI 2022-04-25 15:53:00 28.72 kg/m2 Karly Tavarez eybold - External Oxygen saturation in 2022-04-25 15:53:00 99 /min Karly Barrios - Arterial blood by External Pulse oximetry Systolic blood 2022-03-08 21:34:00 102 mm[Hg] Karly Seybold - pressure External Diastolic blood 2022-03-08 21:34:00 58 mm[Hg] Yesy y Seybold - pressure External Heart rate 2022-03-08 21:34:00 82 /min Karly Tavarez eybold - External Body temperature 2022-03-08 21:34:00 36.61 Amara Sofi ey Seybold - External Respiratory rate 2022-03-08 21:34:00 14 /min Sofi callaway Seybold - External Body height 2022-03-08 21:34:00 160 cm Karly Tavarez eybold - External Body weight 2022-03-08 21:34:00 75.388 kg Karly Tavarez eybold - External BMI 2022-03-08 21:34:00 29.44 kg/m2 Karly Tavarez eybold - External Oxygen saturation in 2022-03-08 21:34:00 99 /min Karly Seybold - Arterial blood by External Pulse oximetry Systolic blood 2022-01-27 19:07:00 137 mm[Hg] Karly Seybold - pressure External Diastolic blood 2022-01-27 19:07:00 78 mm[Hg] Kelse y Seybold - pressure External Heart rate 2022-01-27 19:07:00 78 /min Karly S eybold - External Body temperature 2022-01-27 19:07:00 36.61 Amara Sofi ey Seybold - External Respiratory rate 2022-01-27 19:07:00 14 /min Sofi ey Seybold - External Body height 2022-01-27 19:07:00 160 cm Karly S eybold - External Body weight 2022-01-27 19:07:00 80.287 kg Karly Tavarez eybold - External BMI 2022-01-27 19:07:00 31.35 kg/m2 Karly S eybold - External Oxygen saturation in 2022-01-27 19:07:00 99 /min Karly Seybold - Arterial blood by External Pulse oximetry Systolic blood 2021-09-30 18:05:00 128 mm[Hg] Karly Seybold pressure Diastolic blood 2021-09-30 18:05:00 82 mm[Hg] Nevillese y Seybold pressure Heart rate 2021-09-30 18:05:00 79 /min Karly S eybold Body temperature 2021-09-30 18:05:00 36.56 Amara Sofi ey Seybold Respiratory rate 2021-09-30 18:05:00 14 /min Sofi ey Seybold Body height 2021-09-30 18:05:00 160 cm Karly S eybold Body weight 2021-09-30 18:05:00 88.451 kg Karly S eybold BMI 2021-09-30 18:05:00 34.54 kg/m2 Karly S eybold Oxygen saturation in 2021-09-30 18:05:00 99 /min Karly Seybold Arterial blood by Pulse oximetry Systolic blood 2021-08-31 14:25:00 150 mm[Hg] Karly Seybold pressure Diastolic blood 2021-08-31 14:25:00 96 mm[Hg] Kelse [...] 36.67 kg/m2 Karly S eybold Systolic blood 2021-05-31 14:12:00 138 mm[Hg] Karly Seybold pressure Diastolic blood 2021-05-31 14:12:00 78 mm[Hg] Kelse [...] 34.72 kg/m2 Karly S eybold Systolic blood 2021-05-28 14:21:00 152 mm[Hg] Karly Seybold pressure Diastolic blood 2021-05-28 14:21:00 94 mm[Hg] Kelse y Seybold pressure Heart rate 2021-05-28 14:21:00 97 /min Karly S eybold Body temperature 2021-05-28 14:21:00 35.39 Amara Sofi ey Seybold Respiratory rate 2021-05-28 14:21:00 16 /min Sofi ey Seybold Body height 2021-05-28 14:21:00 160 cm Karly S eybold Body weight 2021-05-28 14:21:00 88.905 kg Karly S eybold BMI 2021-05-28 14:21:00 34.72 kg/m2 Karly Tavarez eybold Systolic blood 2021-03-12 20:07:00 124 mm[Hg] Karly Seybold pressure Diastolic blood 2021-03-12 20:07:00 80 mm[Hg] Kelse y Seybold pressure Heart rate 2021-03-12 20:07:00 95 /min Karly Tavarez eybold Body temperature 2021-03-12 20:07:00 36.06 Amara Sofi ey Seybold Respiratory rate 2021-03-12 20:07:00 16 /min Sofi ey Seybold Body height 2021-03-12 20:07:00 160 cm Karly Tavarez eybold Body weight 2021-03-12 20:07:00 89.359 kg Karly Tavarez eybold BMI 2021-03-12 20:07:00 34.90 kg/m2 Karly Tavarez eybold Systolic blood 2021-03-12 20:07:00 124 mm[Hg] Karly Seybold pressure Diastolic blood 2021-03-12 20:07:00 80 mm[Hg] Kelse y Seybold pressure Heart rate 2021-03-12 20:07:00 95 /min Karly Tavarez eybold Body temperature 2021-03-12 20:07:00 36.06 Amara Sofi ey Seybold Respiratory rate 2021-03-12 20:07:00 16 /min Sofi ey Seybold Body height 2021-03-12 20:07:00 160 cm Karly callawaybogunjan Body weight 2021-03-12 20:07:00 89.359 kg Karly Tavarez eybold BMI 2021-03-12 20:07:00 34.90 kg/m2 Karly Tavarez eybold height 2020-12-29 10:30:00 63.5 [in_i] [facility] weight 2020-12-29 10:30:00 197.8 [lb_av] [facility] bmi 2020-12-29 10:30:00 34.49 kg/m2 [facility] blood pressure 2020-12-29 10:30:00 152 mm[Hg] [facility] - systolic [facility] blood pressure 2020-12-29 10:30:00 90 mm[Hg] [facility] - diastolic [facility] Procedures Procedure Date / Time Performing Clinician Source Performed BI ULTRASOUND BREAST 2022-08-24 20:19:00 Vandana Scott [facility] COMPLETE RIGHT Medical Branch BI DIAGNOSTIC 2022-08-24 19:48:00 Vandana Scott [facility] TOMOSYNTHESIS BILATERAL Medical Branch CT ABDOMEN PELVIS W 2022-08-06 22:19:00 Tyrell Stanley [facility] CONTRAST [facility] POCT TEST 2022-08-06 21:17:00 Tyrell Stanley [facility] LIPASE 2022-08-06 21:14:00 Kyle [facility] COMP. METABOLIC PANEL 2022-08-06 21:14:00 Tyrell Stanley [facility] ([id number]) [facility] CBC WITH DIFF 2022-08-06 21:14:[address] [facility] URINALYSIS 2022-08-06 21:14:00 [facility]REFUSAL FOR 2022-08-06 20:17:45 Doctor Unassigned, No [facility] DIAGNOSIS AND TREATMENT [facility] ASSIGNMENT OF BENEFITS 2022-07-25 14:16:07 Doctor Unassigned, No [facility] LIPID PANEL 2021-05-31 14:59:00 Yuli Aguilar Encounters Start End Encounter Admission Attending Care Care Encounter Source Date/Time Date/Time Type Type Clinicians Facility Department ID 2021-06-02 Outpatient STLMLC STLC [id number] Common 13:57:32 [id number] [facility] 2021-06-02 Outpatient STLMLC STLMLC [id number] Common 13:42:01 [id number] [facility] 2021-06-02 Outpatient STLMLC STLMLC [id number] Common 13:36:23 [id number] [facility] 2022-10-17 2022-10-17 Outpatient KARLY AGUILAR [id number] Karly 08:30:00 08:30:00 YULI guido 2022-09-01 2022-09-01 Office [facility] 1.2.840.114 [id number] Univers 16:30:00 17:00:00 Visit sVandana MARCELLA 350.1.13.10 ity of WOMEN'S 4.2.7.2.686 [facility] [id number] [address] 2022-09-01 2022-09-01 Outpatient R GUEVARA-SIMON MORATAYASOL [facility] [id number] Univers 16:30:00 16:30:00 GUEVAR[address]-SIMON MOR[address]ASOL [facility] 2022-08-24 2022-08-24 [facility] 1.2.840.114 1 [id number] Univers 13:36:45 23:59:00 Encounter s, Vandana SPECIALTY 350.1.13.10 ity of CARE 4.2.7.2.686 [facility] CENTER AT [id number] [address] 2022-08-24 2022-08-24 Outpatient R GUEVARA-SIMON MORATAYASOL [facility] [id number] Univers 13:35:58 13:35:58 GUEVARA-SIM[address] M[address]OL [facility] 2022-08-24 2022-08-24 [facility] 1.2.840.114 1 [id number] Univers 13:35:58 13:35:58 Encounter s, Vandana SPECIALTY 350.1.13.10 ity of CARE 4.2.7.2.686 [facility] CENTER AT [phone] [address] 2022-08-22 2022-08-22 Outpatient R GUEVARA-SIMON MORATAYASOL [facility] [id number] Univers 13:45:36 23:59:00 GUEVARA-MORATAYASIMON BUSBYSOL [facility] 2022-08-22 2022-08-22 [facility] 1.2.840.114 1 [id number] Univers 13:45:36 23:59:00 Encounter s, Vandana SPECIALTY 350.1.13.10 ity of CARE 4.2.7.2.686 [facility] CENTER AT [id number] Ct sergio LEOS 806 [facility] 2022-08-18 2022-08-18 Office Ismael-Candice [facility] 1.2.840.114 [id number] Univers 16:30:00 16:36:33 Visit sVandana MARCELLA 350.1.13.10 ity of WOMEN'S 4.2.7.2.686 [facility] [id number] [place] [address] Branch 2022-08-18 2022-08-18 Outpatient R VANDANA SCOTT [facility] [id number] [facility] 16:30:00 16:36:33 VANDANA SCOTT ity [facility] 2022-08-17 2022-08-17 Outpatient KARLY AGUILAR [id number] Karly 00:00:00 00:00:00 YULI Seybol d 2022-08-17 2022-08-17 Outpatient HARTKARLY [id number] Karly 00:00:00 00:00:00 MICAANNIE Championo ld 2022-08-15 2022-08-15 Outpatient LAB90 KARLY RODRÍGUEZ [id number] Karly 09:20:00 09:20:00 Seybol d 2022-08-15 2022-08-15 Outpatient KARLY AGUILAR [id number] Karly 00:00:00 00:00:00 YULI Seybol d 2022-08-13 2022-08-13 Outpatient KARLY AGUILAR [id number] Karly 00:00:00 00:00:00 YULI Seybol d 2022-08-09 2022-08-09 Outpatient KARLY AGUILAR [id number] Karly 00:00:00 00:00:00 YULI Seybol d 2022-08-09 2022-08-09 Outpatient KARLY AGUILAR [id number] Karly 00:00:00 00:00:00 YULI Seybol d 2022-08-06 2022-08-06 Emergency [facility] [id number] [id number] Univers 15:34:00 19:56:00 Tyrell S CASIETON 350.1.13.10 i ty of [place] 4.2.7.2.686 [facility] [id number] [facility] 084 Branch 2022-08-06 2022-08-06 Emergency [facility] [id number] Univers 15:34:00 19:56:00 TYRELL ity of [facility] 2022-08-01 2022-08-01 Outpatient KARLY RODRÍGUEZ [id number] Karly 14:00:00 14:00:00 Seybol d 2022-08-01 2022-08-01 Outpatient KARLY EWING II [id number] Karly 09:15:00 09:15:00 KATELYN Seybol d 2022-07-25 2022-07-25 Office [facility] 1.2.840.114 [id number] Univers 09:30:00 10:15:05 Visit Vandana tavarez 350.1.13.10 ity of WOMEN'S 4.2.7.2.686 [facility] [id number] [facility] 134 Branch 2022-07-25 2022-07-25 Outpatient R VANDANA SCOTT [facility] TMB [id number] Univers 09:30:00 10:15:05 VANDANA SCOTT ity [facility] 2022-07-25 2022-07-25 Orders Doctor YUMIKO 1.2.840.114 [id number] Univers 00:00:00 00:00:00 Only Unassigned, DESIRAE 350.1.13.10 ity of [place] [facility] 4.2.7.2.686 Nicolas [id number] [facility] 009 Branch 2022-07-25 2022-07-25 Letter [facility] 1.2.840.114 [id number] Univers 00:00:00 00:00:00 (Out) sVandana 350.1.13.10 ity of WOMEN'S 4.2.7.2.686 [facility] [id number] [facility] 134 Branch 2022-07-19 2022-07-19 Outpatient KARLY AGUILAR [id number] Karly 00:00:00 00:00:00 YULI Seybol d 2022-07-15 2022-07-15 Outpatient ERISKARLY [id number] Karly 00:00:00 00:00:00 EMMA Seybol d 2022-07-13 2022-07-13 Outpatient KANDYLKARLY [id number] Karly 10:30:00 10:30:00 YULI Seybol d 2022-07-04 2022-07-04 Outpatient KANDYLKARLY [id number] Karly 00:00:00 00:00:00 YULI Seybol d 2022-06-29 2022-06-29 Outpatient LAB90 KARLY RODRÍGUEZ [id number] [place] 14:45:00 14:45:00 Seybol d 2022-06-29 2022-06-29 Outpatient KANDYL, KARLY RODRÍGUEZ [id number] Karly 14:00:00 14:00:00 YULI Seybol d 2022-06-17 2022-06-17 Outpatient KANDYLKARLY [id number] Karly 00:00:00 00:00:00 YULI Seybol d 2022-06-09 2022-06-09 Outpatient KANDYLKARLY [id number] Karly 00:00:00 00:00:00 YULI Seybol d 2022-06-08 2022-06-08 Outpatient KANDYLKARLY [id number] Karly 00:00:00 00:00:00 YULI Seybol d 2022-06-02 2022-06-02 Outpatient KANDYLKARLY [id number] Karly 00:00:00 00:00:00 YULI Seybol d 2022-06-01 2022-06-01 Outpatient KANDYLKARLY [id number] Karly 15:00:00 15:00:00 YULI Seybol d 2022-05-31 2022-05-31 Outpatient HUNDLKARLY [id number] Karly 10:00:00 10:00:00 YULI Seybol d 2022-05-30 2022-05-30 Outpatient HUNDL, KARLY RODRÍGUEZ [id number] Karly 08:00:00 08:00:00 YULI Seybol d 2022-05-20 2022-05-20 Outpatient HUNDL, KARLY RODRÍGUEZ [id number] Karly 00:00:00 00:00:00 YULI Seybol d 2022-05-17 2022-05-17 Outpatient HUNDL, KARLY RODRÍGUEZ [id number] Karly 00:00:00 00:00:00 YULI Seybol d 2022-05-17 2022-05-17 Outpatient HART, KARLY RODRÍGUEZ [id number] Karly 00:00:00 00:00:00 MICA Seybo ld 2022-05-16 2022-05-16 Outpatient HUNDL, KARLY RODRÍGUEZ [id number] Karly 09:30:00 09:30:00 YULI Seybol d 2022-05-12 2022-05-12 Outpatient HUNDL, KARLY RODRÍGUEZ [id number] Karly 00:00:00 00:00:00 YULI Seybol d 2022-05-12 2022-05-12 Outpatient PREZAS, KARLY RODRÍGUEZ [id number] Karly 00:00:00 00:00:00 ELENA Seybol d 2022-05-10 2022-05-10 Outpatient NOA, KARLY RODRÍGUEZ [id number] Karly 10:30:00 10:30:00 LEON Seybol d 2022-05-07 2022-05-07 Outpatient HUNDL, KARLY RODRÍGUEZ [id number] Karly 00:00:00 00:00:00 YULI Seybol d 2022-05-07 2022-05-07 Outpatient HART, KARLY RODRÍGUEZ [id number] Karly 00:00:00 00:00:00 MICA Seybo ld 2022-04-29 2022-04-29 Outpatient PREZAS, KARLY RODRÍGUEZ [id number] Karly 00:00:00 00:00:00 ELENA Seybol d 2022-04-27 2022-04-27 Outpatient HUNDL, KARLY RODRÍGUEZ [id number] Karly 00:00:00 00:00:00 YULI Seybol d 2022-04-26 2022-04-26 Outpatient HUNDL, KARLY RODRÍGUEZ [id number] Karly 09:00:00 09:00:00 YULI Seybol d 2022-04-26 2022-04-26 Outpatient HUNDL, KARLY RODRÍGUEZ [id number] Karly 00:00:00 00:00:00 YULI Seybol d 2022-04-26 2022-04-26 Outpatient HUNDL, KARLY RODRÍGUEZ [id number] Karly 00:00:00 00:00:00 YULI Seybol d 2022-04-25 2022-04-25 Outpatient HUNDL, KARLY RODRÍGUEZ [id number] Karly 14:00:00 14:00:00 YULI Seybol d 2022-04-25 2022-04-25 Outpatient LAB90 KARLY RODRÍGUEZ [id number] Karly 10:30:00 10:30:00 Seybol d 2022-04-18 2022-04-18 Outpatient PREZAS, KARLY RODRÍGUEZ [id number] Karly 00:00:00 00:00:00 ELENA Seybol d 2022-04-13 2022-04-13 Outpatient HUNDLKARLY [id number] Karly 00:00:00 00:00:00 YULI Seybol d 2022-04-12 2022-04-12 Outpatient HUNDLKARLY [id number] Karly 00:00:00 00:00:00 YULI Seybol d 2022-03-22 2022-03-22 Outpatient HUNDLKARLY [id number] Karly 08:30:00 08:30:00 YULI Seybol d 2022-03-15 2022-03-15 Outpatient JESUSITAKARLY MARIN [id number] Karly 10:40:00 10:40:00 JOE Seybol d 2022-03-14 2022-03-14 Outpatient JESUSITAKARLY MARIN [id number] Karly 00:00:00 00:00:00 JOE Seybol d 2022-03-09 2022-03-09 Outpatient HUNDL, KARLY RODRÍGUEZ [id number] Karly 00:00:00 00:00:00 YULI Seybol d 2022-03-08 2022-03-08 Outpatient HUNDL, KARLY RODRÍGUEZ [id number] Karly 16:30:00 16:30:00 YULI Seybol d 2022-03-08 2022-03-08 Outpatient HUNDL, KARLY RODRÍGUEZ [id number] Karly 00:00:00 00:00:00 YULI Seybol d 2022-02-25 2022-02-25 Outpatient HUNDL, KARLY RODRÍGUEZ [id number] Karly 00:00:00 00:00:00 YULI Seybol d 2022-02-24 2022-02-24 Outpatient HUNDL, KARLY RODRÍGUEZ [id number] Karly 14:00:00 14:00:00 YULI Seybol d 2022-02-22 2022-02-22 Outpatient HUNDL, KARLY RODRÍGUEZ [id number] Karly 10:00:00 10:00:00 YULI Seybol d 2022-01-31 2022-01-31 Outpatient HUNDL, KARLY RODRÍGUEZ [id number] Karly 00:00:00 00:00:00 YULI Seybol d 2022-01-27 2022-01-27 Outpatient HUNDL, KARLY RODRÍGUEZ [id number] Karly 14:00:00 14:00:00 YULI Seybol d 2022-01-04 2022-01-04 Outpatient HUNDL, KARLY RODRÍGUEZ [id number] Karly 09:00:00 09:00:00 YULI Seybol d 2021-12-28 2021-12-28 Outpatient HUNDL, KARLY RODRÍGUEZ [id number] Karly 00:00:00 00:00:00 YULI Seybol d 2021-12-23 2021-12-23 Outpatient HUNDL, KARLY RODRÍGUEZ [id number] Karly 00:00:00 00:00:00 YULI Seybol d 2021-12-14 2021-12-14 Outpatient HUNDL, KARLY RODRÍGUEZ [id number] Karly 00:00:00 00:00:00 YULI Seybol d 2021-12-13 2021-12-13 Outpatient HUNDL, KARLY RODRÍGUEZ [id number] Karly 00:00:00 00:00:00 YULI Seybol d 2021-12-13 2021-12-13 Outpatient HUNDL, KARLY RODRÍGUEZ [id number] Karly 00:00:00 00:00:00 YULI Seybol d 2021-12-13 2021-12-13 Outpatient HUNDDarcy, KARLY RODRÍGUEZ [id number] Karly 00:00:00 00:00:00 YULI Seybol d 2021-12-10 2021-12-10 Outpatient LAB90 KARLY RODRÍGUEZ [id number] Karly 10:15:00 10:15:00 Seybol d 2021-12-10 2021-12-10 Office Jeff Case 1.2.840.114 [id number] Karly 09:30:00 10:00:00 Visit Yuli Mata 350.1.13.13 Se ybold 1.2.7.2.686 [id number] 2021-12-07 2021-12-07 Outpatient JEFF, KARLY RODRÍGUEZ [id number] Karly 14:30:00 14:30:00 YULI Seybol d 2021-12-06 2021-12-06 Outpatient JEFF, KARLY RODRÍGUEZ [id number] Karly 09:30:00 09:30:00 YULI Seybol d 2021-11-19 2021-11-19 Telemedici Manpreet Barrientos 1.2.840.114 [id number] Karly 15:15:00 15:25:27 ne Elena Mata 350.1.13.13 Se ybold 1.2.7.2.686 [id number] 2021-10-28 2021-10-28 Outpatient HUNDL, KARLY RODRÍGUEZ [id number] Karly 08:30:00 08:30:00 YULI Seybol d 2021-10-07 2021-10-07 Outpatient JEFF, KARLY RODRÍGUEZ [id number] Karly 00:00:00 00:00:00 YULI Seybol d 2021-09-30 2021-09-30 Office KandyManpreet palacios 1.2.840.114 [id number] Karly 13:00:00 13:30:00 Visit Yuli Mata 350.1.13.13 Se ybold 1.2.7.2.686 [id number] 2021-09-30 2021-09-30 Outpatient JEFF KARLY RODRÍGUEZ [id number] Karly 00:00:00 00:00:00 YULI Seybol d 2021-09-28 2021-09-28 Outpatient JEFF KARLY RODRÍGUEZ [id number] Karly 08:00:00 08:00:00 YULI Seybol d 2021-09-03 2021-09-03 Outpatient JEFF KARLY RODRÍGUEZ [id number] Karly 00:00:00 00:00:00 YULI Seybol d 2021-09-02 2021-09-02 Outpatient JEFF KARLY RODRÍGUEZ [id number] Karly 00:00:00 00:00:00 YULI Seybol d 2021-09-01 2021-09-01 Outpatient KARLY AGUILAR [id number] Karly 00:00:00 00:00:00 YULI Seybol d 2021-08-31 2021-08-31 Outpatient LAB90 KARLY RODRÍGUEZ [id number] Karly 10:50:00 10:50:00 Seybol d 2021-08-31 2021-08-31 Office Jeff Manpreet 1.2.840.114 [id number] Karly 09:45:00 10:15:00 Visit Yuli Mata 350.1.13.13 Se ybold 1.2.7.2.686 [id number] 2021-08-31 2021-08-31 Outpatient JEFF KARLY RODRÍGUEZ [id number] Karly 00:00:00 00:00:00 YULI Seybol d 2021-08-31 2021-08-31 Outpatient KARLY AGUILAR [id number] Karly 00:00:00 00:00:00 YULI Seybol d 2021-07-18 2021-07-18 Outpatient KARLY AGUILAR [id number] Karly 00:00:00 00:00:00 YULI Seybol d 2021-06-28 2021-06-28 Outpatient KARLY AGUILAR [id number] Karly 00:00:00 00:00:00 YULI Seybol d 2021-06-14 2021-06-14 Outpatient (KEZIA) KARLY RODRÍGUEZ [id number] Karly 00:00:00 00:00:00 KARLY-SEYB Se ybold OLD 2021-06-07 2021-06-07 Office ALPHONSE HART 1.2.124.057 [id number] Karly 11:00:00 11:00:[address] [facility] 350.1.13.13 Seybold DIAGNOSTI 1.2.7.2.686 [facility] [id number] 2021-06-03 2021-06-07 Outpatient [facility] [id number] Gonsalez 00:00:00 00:00:[address] 2021-06-03 2021-06-03 Outpatient KANDYDarcy KARLY RODRÍGUEZ [id number] Karly 00:00:00 00:00:00 YULI Seybol d 2021-06-02 2021-06-02 Outpatient JEFF KARLY RODRÍGUEZ [id number] Karly 00:00:00 00:00:00 YULI Seybol d 2021-05-31 2021-05-31 Outpatient LAB90 KARLY RODRÍGUEZ [id number] Karly 09:15:00 09:15:00 Seybol d 2021-05-31 2021-05-31 Office Manpreet Aguilar 1.2.840.114 [id number] Karly 08:30:00 09:00:00 Visit Yuli Mata 350.1.13.13 Se ybold 1.2.7.2.686 [id number] 2021-05-31 2021-05-31 Outpatient JEFF KARLY RODRÍGUEZ [id number] Karly 00:00:00 00:00:00 YULI Seybol d 2021-05-28 2021-05-28 Outpatient LAB90 KARLY RODRÍGUEZ [id number] Karly 09:40:00 09:40:00 Seybol d 2021-05-28 2021-05-28 Office Manpreet Aguilar 1.2.840.114 [id number] Karly 08:30:00 09:00:00 Visit Yuli Mata 350.1.13.13 Se ybold 1.2.7.2.686 [id number] 2021-05-20 2021-05-20 Outpatient HART, KARLY RODRÍGUEZ [id number] Karly 08:40:00 08:40:00 MICA Seybo ld 2021-05-04 2021-05-04 Outpatient HART, KARLY RODRÍGUEZ [id number] Karly 10:20:00 10:20:00 MICA Seybo ld 2021-04-05 2021-04-05 Outpatient HART, KARLY RODRÍGUEZ [id number] Karly 10:40:00 10:40:00 MICA Seybo ld 2021-04-05 2021-04-05 Outpatient HART, KARLY RODRÍGUEZ [id number] Karly 00:00:00 00:00:00 MICA Seybo ld 2021-03-29 2021-03-29 Outpatient HAILEY, KARLY RODRÍGUEZ [id number] Karly 13:20:00 13:20:00 MICA Seybo ld 2021-03-12 2021-03-12 Office Manpreet Aguilar 1.2.840.114 [id number] Karly 15:06:43 15:36:43 Visit Yuli Mata 350.1.13.13 Se ybold 1.2.7.2.686 [id number] 2021-03-12 2021-03-12 Office Jeff Case 1.2.840.114 [id number] 15:06:43 15:36:43 Visit Yuli Mata 350.1.13.13 1.2.7.2.686 [id number] 2021-01-09 2021-01-09 Outpatient KARLY CAREY [id number] Karly 00:00:00 00:00:00 CRYSTAL Seybol d 2021-01-01 2021-01-01 Outpatient KARLY CAREY [id number] Karly 10:30:00 10:30:00 CRYSTAL Seybol d 2020-12-29 2020-12-29 OFFICE STLMLC STLMLC [id number] mmon 00:00:00 00:00:00 VISIT NEW Spir it PT LEVEL 3 - [facility] 2020-12-16 2020-12-16 Outpatient KARLY CAREY [id number] Karly 13:30:00 13:30:00 CRYSTAL Seybol d 2020-12-15 2020-12-15 Outpatient KARLY CAREY [id number] Karly 08:30:00 08:30:00 CRYSTAL Seybol d 2020-11-18 2020-11-18 Outpatient AURELIOKARLY CRUZ [id number] Karly 14:15:00 14:15:00 CRYSTAL Seybol d 2020-11-17 2020-11-17 Outpatient KARLY HART [id number] Karly 00:00:00 00:00:00 MICA Whiting ld 2019-11-05 2019-11-05 Outpatient R [facility] [id number] Univers 09:20:00 09:20:[id number] [facility] Results Test Description Test Time Test Comments Results Result Comments Source CBC WITH DIFF 2022-08-06 22:12:44 Test Item Value Reference Range Interpretation Comme nts WBC (test code = 6690-2) 3.42 See_Comment L [A utomated message] The system which ge nerated this result transmit ann reference range: 4.30 - 1 1.10 10*3/?L. The reference r richie was not used to interpr et this result as normal/abnor mal. RBC (test code = 789-8) 4.33 See_Comment [Au tomated message] The system which ge nerated this result transmit ann reference range: 3.93 - 5 .25 10*6/?L. The reference r richie was not used to interpr et this result as normal/abnor mal. HGB (test code = 718-7) 13.3 g/dL 11.6-15.0 HCT (test code = 4544-3) 38.8 % 35.7-45.2 MCV (test code = 787-2) 89.6 fL 80.6-95.5 MCH (test code = 785-6) 30.7 pg 25.9-32.8 MCHC (test code = 786-4) 34.3 g/dL 31.6-35.1 RDW-SD (test code = 04581-5) 42.7 fL 39.0-49.9 RDW-CV (test code = 788-0) 13.0 % 12.0-15.5 PLT (test code = 777-3) 298 See_Comment [Au tomated message] The system which ge nerated this result transmit ann reference range: 166 - 35 8 10*3/?L. The reference range was not used to interpret th is result as normal/abnormal . MPV (test code = 67931-7) 10.0 fL 9.5-12.9 NRBC/100 WBC (test code = 0.0 See_Comment [ Automated message] The [id number]) system which ge nerated this result transmit ann reference range: 0.0 - 10 .0 /100 WBCs. The reference r richie was not used to interpr et this result as normal/abnor mal. NRBC x10^3 (test code = See_Comment [Au tomated message] The [id number]) system which ge nerated this result transmit ann reference range: 10*3/?L. The reference range was not u sed to interpret this result as normal/abnormal . GRAN MAT (NEUT) % (test code 30.4 % = 770-8) IMM GRAN % (test code = 0.30 % 0349381631) LYMPH % (test code = 736-9) 56.4 % MONO % (test code = 5905-5) 9.1 % EOS % (test code = 713-8) 2.6 % BASO % (test code = 706-2) 1.2 % GRAN MAT x10^3(ANC) (test 1.04 10*3/uL 1.88-7.09 L code = 8910784166) IMM GRAN x10^3 (test code = 0.00-0.06 0689196341) LYMPH x10^3 (test code = 1.93 10*3/uL 1.32-3.29 731-0) MONO x10^3 (test code = 0.31 10*3/uL 0.33-0.92 L 742-7) EOS x10^3 (test code = 0.09 10*3/uL 0.03-0.39 711-2) BASO x10^3 (test code = 0.04 10*3/uL 0.01-0.07 704-7) Lab Interpretation (test Abnormal code = 53217-0) [facility]. METABOLIC PANEL (04905)2022-08-06 21:57:41 Test Item Value Reference Range Interpretation Comments NA (test code = 135 mmol/L 135-145 1810054270) K (test code = 4.0 mmol/L 3.5-5.0 5446967994) CL (test code = 98 mmol/L 98-108 7560549425) CO2 TOTAL (test code 28 mmol/L 23-31 = 5342610786) AGAP (test code = 9 2-16 8471310027) BUN (test code = 18 mg/dL 7-23 8570326855) GLUCOSE (test code = 87 mg/dL 70-110 8633898362) CREATININE (test code 0.67 mg/dL 0.50-1.04 = 9827487979) TOTAL BILI (test code 0.8 mg/dL 0.1-1.1 = 9610789216) CALCIUM (test code = 9.6 mg/dL 8.6-10.6 6023267499) T PROTEIN (test code 7.1 g/dL 6.3-8.2 = 1162991946) ALBUMIN (test code = 4.6 g/dL 3.5-5.0 8895616507) ALK PHOS (test code = 54 U/L 34-122 9368928871) ALTv (test code = 24 U/L 5-35 1742-6) AST(SGOT) (test code 25 U/L 13-40 = 6631920901) eGFR (test code = 92.4 mL/min/1.73m2 8540743723) REBECCA (test code = REBECCA) Association of Glomerular Filtration Rate (GFR) and Staging of Kidney Disease* + + +- +| GFR (mL/min/1.73 m2) ?| With Kidney Damage ?| ?Without Kidney Damage+ ------+ ----+ ------+| ?>90 ?| ?Stage one ?| ? Normal ?+ -+ + -+| ?60-89 ?| ?Stage two ?| ? Decreased GFR ? + + +- +| ?30-59 ?| ?Stage three ?| ? Stage three ? + + +- +| ?15-29 ?| ?Stage four ? | ? Stage four ?+ -+ + -+| ?<15 (or dialysis) ? ?| ?Stage five ? | ? Stage five ?+ -+ + -+ *Each stage assumes the associated GFR level has been in effect for at least three months. ?Stages 1 to 5, with or without kidney disease, indicate chronic kidney disease. Notes: Determination of stages one and two (with eGFR >59mL/min/1.73 m2) requires estimation of kidney damage for at least three months as defined by structural or functional abnormalities of the kidney, manifested by either:Pathological abnormalities or Markers of kidney damage (including abnormalities in the composition of the blood or urine or abnormalities in imaging tests). [facility] Test Item Value Reference Range Interpretation Comments LIPASE (test code = 5370768536) 112 U/L 0-220 Lab Interpretation (test code = Normal 74323-6) [facility] [id number] 21:17:00 Test Item Value Reference Range Interpretation Comments POCT PREG (test code = 1605) Negative On board controls acceptable with Present C Line (test code = 3574) POCT PREG LOT # (test code = 3575) [id number] POCT PREG TEST DATE (test 06-07-2023 code = 3576) Lab Interpretation (test code = Normal 33708-6) [facility] [id number] 14:26:00 Test Item Value Reference Range Interpretation Comments CHOLESTEROL, TOTAL (test 284 mg/dL 100-199 H code = 3-3) TRIGLYCERIDES (test code = 156 mg/dL 0-149 H 2571-8) HDL CHOLESTEROL (test code 57 mg/dL >39 = 5-9) VLDL CHOLESTEROL YAZAN (test 29 mg/dL 5-40 code = 71440-7) LDL CHOL CALC (NIH) (test 198 mg/dL 0-99 H code = 46506-5) REBECCA (test code = REBECCA) [facility] results reported in Eastern Time. [facility] Clinical Information:SRC:Blo od, venous*Venipunc ture ? [facility] Source of Specimen:Blood, venous*Venipunc Lab Interpretation (test Abnormal code = 06524-4) Karly Barrios"
--- NOTE | 2022-10-10 18:03 | ER ---
Nurse's Notes [facility] Name: Shirley Tariq Age: 52 yrs Sex: Female : 1970 Arrival Date: 10/10/2022 Time: 17:21 Bed 9 Private MD: Diagnosis: Abrasion of vagina and vulva Presentation: 10/10 17:26 Chief complaint: Painful hard lump on labia since this morning. Coronavirus screen: At this time, the client does not indicate any symptoms associated with coronavirus-19. Ebola Screen: No symptoms or risks identified at this time. Initial Sepsis Screen: Does the patient meet any 2 criteria? No. Patient's initial sepsis screen is negative. Does the patient have a suspected source of infection? No. Patient's initial sepsis screen is negative. Risk Assessment: Do you want to hurt yourself or someone else? Patient reports no desire to harm self or others. Onset of symptoms was October 10, 2022. 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 - Social history:: Smoking status: Patient denies any tobacco usage or history of. Screenin:41 [facility] ED Fall Risk Assessment (Adult) History of falling in the last 3 months, hb including since admission No falls in past 3 months (0 pts) Confusion or Disorientation No (0 pts) Intoxicated or Sedated No (0 pts) Impaired Gait No (0 pts) Mobility Assist Device Used No (0 pt) Altered Elimination No (0 pt) Score/Fall Risk Level 0 - 2 = Low Risk Oriented to surroundings, Maintained a safe environment, Educated pt \T\ family on fall prevention, incl call for assistance when getting out of bed. Abuse screen: Denies threats or abuse. Nutritional screening: No deficits noted. Tuberculosis screening: No symptoms or risk factors identified. Assessment: 17:57 General: Appears uncomfortable, Behavior is calm, cooperative, appropriate for age. mb9 Pain: Complains of pain in pelvis Quality of pain is described as throbbing. Neuro: Monteiro Agitation-Sedation Scale (RASS): 0 - Alert and Calm Level of Consciousness is awake, alert, obeys commands, Oriented to person, place, time, situation, Appropriate for age. Cardiovascular: Patient's skin is warm and dry. Respiratory: Airway is patent Respiratory effort is even, unlabored, Respiratory pattern is regular, symmetrical. GI:. : Swelling noted Reports pain in suprapubic area. Derm: Skin is pink, warm \T\ dry. Musculoskeletal: Range of motion: intact in all extremities. Vital Signs: 17:26 BP 170 / 102; Pulse 112; Resp 20; Temp 99.2; Pulse Ox 100% on R/A; Weight 58.97 kg; hb Height 5 ft. 3 in. ; Pain 10/10; 17:57 BP 148 / 79; Pulse 102; Resp 18; Pulse Ox 100% on R/A; mb9 17:26 Body Mass Index 23.03 (58.97 kg, 160.02 cm) hb 17:26 Pain Scale: Adult hb ED Course: 17:24 Patient arrived in ED. im 17:26 [facility] snw 17:26 Luis Wheatley MD is Attending Physician. snw 17:28 Triage completed. hb 17:28 Arm band placed on. hb 17:41 Placed in gown. Bed in low position. Call light in reach. Side rails up X 1. Client hb placed on continuous cardiac and pulse oximetry monitoring. NIBP monitoring applied. 17:57 Netta Nelson RN is Primary Nurse. mb9 18:13 No provider procedures requiring assistance completed. Patient did not have IV access mb9 during this emergency room visit. Administered Medications: 18:12 Drug: Ketorolac IM 30 mg Route: IM; Site: left deltoid; mb9 18:12 Follow up: Response: No adverse reaction mb9 18:12 Drug: Trimethoprim-Sulfamethoxazole PO (160 mg-800 mg (DS) 1 tablet Route: PO; mb9 18:12 Follow up: Response: No adverse reaction mb9 Medication: 17:42 VIS not applicable for this client. Outcome: 18:02 Discharge ordered by . maureen 18:13 Discharged to home ambulatory. mb9 18:13 Condition: stable 18:13 Discharge instructions given to patient, Instructed on discharge instructions, follow up and referral plans. Demonstrated understanding of instructions, follow-up care, medications, Prescriptions given X 4. 18:14 Patient left the ED. mb9 Signatures: Kaelyn Rodarte, MUSEUM INFORMATICS SPECIALIST-C MUSEUM INFORMATICS SPECIALIST-Csnw Michelle Zhou, RN RN Netta Nelson RN RN mb9 Vashti Davis
--- NOTE | 2022-10-10 18:03 | EDPHYS ---
Physician Documentation [facility] Name: Shirley Tariq Age: 52 yrs Sex: Female : 1970 Arrival Date: 10/10/2022 Time: 17:21 Bed 9 Private MD: ED Physician Luis Wheatley HPI: 10/10 19:16 This 52 yrs old Female presents to ER via Ambulatory with complaints of Skin snw Problem. 19:16 Onset: The symptoms/episode began/occurred acutely, 2 day(s) ago, and became worse snw today, and became persistent. Severity of symptoms: At their worst the symptoms were moderate, severe. The patient has not experienced similar symptoms in the past. It is unknown whether or not the patient has recently seen a physician. perineal irritation, pain. 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 - Social history:: Smoking status: Patient denies any tobacco usage or history of. ROS: 19:15 Constitutional: Negative for fever, chills, and weight loss, Eyes: Negative for injury, snw pain, redness, and discharge, ENT: Negative for injury, pain, and discharge, Neck: Negative for injury, pain, and swelling, Cardiovascular: Negative for chest pain, palpitations, and edema, Respiratory: Negative for shortness of breath, cough, wheezing, and pleuritic chest pain, Abdomen/GI: Negative for abdominal pain, nausea, vomiting, diarrhea, and constipation, Back: Negative for injury and pain, MS/Extremity: Negative for injury and deformity, Skin: Negative for injury, rash, and discoloration, Neuro: Negative for headache, weakness, numbness, tingling, and seizure, Psych: Negative for depression, anxiety, suicide ideation, homicidal ideation, and hallucinations. 19:15 Back: Positive for perineal pain. Exam: 19:14 Constitutional: This is a well developed, well nourished patient who is awake, alert, snw and in no acute distress. Head/Face: Normocephalic, atraumatic. Eyes: Pupils equal round and reactive to light, extra-ocular motions intact. Lids and lashes normal. Conjunctiva and sclera are non-icteric and not injected. Cornea within normal limits. Periorbital areas with no swelling, redness, or edema. ENT: Nares patent. No nasal discharge, no septal abnormalities noted. Tympanic membranes are normal and external auditory canals are clear. Oropharynx with no redness, swelling, or masses, exudates, or evidence of obstruction, uvula midline. Mucous membranes moist. Neck: Trachea midline, no thyromegaly or masses palpated, and no cervical lymphadenopathy. Supple, full range of motion without nuchal rigidity, or vertebral point tenderness. No Meningismus. Chest/axilla: Normal chest wall appearance and motion. Nontender with no deformity. No lesions are appreciated. Cardiovascular: Regular rate and rhythm with a normal S1 and S2. No gallops, murmurs, or rubs. Normal PMI, no JVD. No pulse deficits. Respiratory: Lungs have equal breath sounds bilaterally, clear to auscultation and percussion. No rales, rhonchi or wheezes noted. No increased work of breathing, no retractions or nasal flaring. Abdomen/GI: Soft, non-tender, with normal bowel sounds. No distension or tympany. No guarding or rebound. No evidence of tenderness throughout. Back: No spinal tenderness. No costovertebral tenderness. Full range of motion. Pelvic Exam: Normal external genitalia. right outer labia with edema, tenderness, no noted abscess collection Skin: Warm, dry with normal turgor. Normal color with no rashes, no lesions, and no evidence of cellulitis. MS/ Extremity: Pulses equal, no cyanosis. Neurovascular intact. Full, normal range of motion. Neuro: Awake and alert, GCS 15, oriented to person, place, time, and situation. Cranial nerves II-XII grossly intact. Motor strength 5/5 in all extremities. Sensory grossly intact. Cerebellar exam normal. Normal gait. Psych: Awake, alert, with orientation to person, place and time. Behavior, mood, and affect are within normal limits. Vital Signs: 17:26 BP 170 / 102; Pulse 112; Resp 20; Temp 99.2; Pulse Ox 100% on R/A; Weight 58.97 kg; hb Height 5 ft. 3 in. ; Pain 10/10; 17:57 BP 148 / 79; Pulse 102; Resp 18; Pulse Ox 100% on R/A; mb9 17:26 Body Mass Index 23.03 (58.97 kg, 160.02 cm) hb 17:26 Pain Scale: Adult hb MDM: 17:32 Patient medically screened. yuriy 19:12 Differential diagnosis: viral Infection, bacterial infection. Data reviewed: vital snw signs, nurses notes. Counseling: I had a detailed discussion with the patient and/or guardian regarding: the historical points, exam findings, and any diagnostic results supporting the discharge/admit diagnosis, the presence of at least one elevated blood pressure reading (>120/80) during this emergency department visit, the need for outpatient follow up, for definitive care, to return to the emergency department if symptoms worsen or persist or if there are any questions or concerns that arise at home. Special discussion: I have referred the patient to see his PCP for further evaluation of high blood pressure. Based on the history and exam findings, there is no indication for further emergent testing or inpatient evaluation. I discussed with the patient/guardian the need to see the primary care provider for further evaluation of the symptoms. Administered Medications: 18:12 Drug: Ketorolac IM 30 mg Route: IM; Site: left deltoid; mb9 18:12 Follow up: Response: No adverse reaction mb9 18:12 Drug: Trimethoprim-Sulfamethoxazole PO (160 mg-800 mg (DS) 1 tablet Route: PO; mb9 18:12 Follow up: Response: No adverse reaction mb9 Disposition: 19:17 Co-signature as Attending Physician, Luis Wheatley MD I reviewed the patient's care rt provided by the Advanced Practice Provider and agree with the diagnosis and treatment plan. Disposition Summary: 10/10/22 18:02 Discharge Ordered Location: Home snw Condition: Stable snw Diagnosis - Abrasion of vagina and vulva snw Followup: snw - With: Emergency Department - When: As needed - Reason: Worsening of condition Followup: snw - With: Private Physician - When: 2 - 3 days - Reason: Recheck today's complaints, Continuance of care, Re-evaluation by your physician Discharge Instructions: - Discharge Summary Sheet snw - How to Take a Sitz Bath snw - Vaginitis snw Forms: - Medication Reconciliation Form snw - Thank You Letter snw - Antibiotic Education snw - Prescription Opioid Use snw Prescriptions: - mupirocin 2 % Topical ointment - apply 1 application by TOPICAL route 4 times per day; 15 gram; Refills: 0, snw Product Selection Permitted - Bactrim DS 800-160 mg Oral Tablet - take 1 tablet by ORAL route every 12 hours for 10 days; 20 tablet; Refills: 0, snw Product Selection Permitted - Prednisone 20 mg Oral Tablet - take 2 tablets by ORAL route once daily for 5 days; 10 tablet; Refills: 0, snw Product Selection Permitted - Pepcid 20 mg Oral Tablet - take 1 tablet by ORAL route once daily; 20 tablet; Refills: 0, Product snw Selection Permitted Signatures: Carlos Andrade MD MD cha Waters, Shelly, LAP RUNNER-C LAP RUNNER-Csnw Michelle Zhou, RN RN Netta Nelson RN RN mb9 Luis Wheatley MD MD rt
[2022-10-10] MEDS ORDERED: KETOROLAC 30 MG/ML INJ ONE (18:14)
[2022-10-10] MEDS ORDERED: SMZ./TMP. 800/160 MG TABLET ONE (18:14)
[2022-10-10 18:22] VITALS: TEMP 99.2; O2SAT 100
[2022-10-10 18:26] VITALS: BP 148/79
== END 2022-10-10 18:14 | disposition home or self-care (01) ==
LOC: ER 17:21
DX: S30.814A Abrasion of vagina and vulva, initial encounter (principal); I10 Essential (primary) hypertension; E78.5 Hyperlipidemia, unspecified
CPT/HCPCS: 96372; 99284